=== PATIENT | male | born 1950 | race Caucasian/White ===

== ENCOUNTER 2016-07-10 17:40 | Inpatient (IN) | payer OTHER, MEDICARE ==
[~2016-07-10] VITALS: Ht 177.8 cm; Wt 93.0 kg
[~2016-07-10 17:40] MED LIST: ATEN-102 PO; BENA25TA8 PO; EPIP0.3I IM; HYZA100T2 PO; IBUP800 PO; MEDR4PAK3 PO; ZOCO80TA PO
[2016-07-10 17:42] VITALS: BP 119/58; PULSE 73; RESP 12; TEMP 98.3; O2SAT 99
[2016-07-10] MEDS ORDERED: ASPI-110 PO (18:36)
[2016-07-10] MEDS ORDERED: VITA100022 PO (18:36)
[2016-07-10] MEDS ORDERED: ATEN100T PO (18:36)
[2016-07-10] MEDS ORDERED: HYDR12.57 PO (18:36)
[2016-07-10] MEDS ORDERED: ZOCO40TA PO (18:36)
[2016-07-10] MEDS ORDERED: SYMB160A INH (18:36)
[2016-07-10] MEDS ORDERED: MULT1TAB84 PO (18:36)
[2016-07-10] MEDS ORDERED: FOLI400T PO (18:36)
[2016-07-10] MEDS ORDERED: LOSA100T PO (18:36)
[2016-07-10] MEDS ORDERED: SODIUM CHLOR 0.9% 1000 ML INJ 1,000 ML IV SCH (18:41)
[2016-07-10] MEDS ORDERED: MORPHINE SULFATE 4 MG/ML INJ IV PUSH ONE (18:45)
[2016-07-10] MEDS ORDERED: ONDANSETRON HCL 4 MG/2 ML VIAL IVP ONE (18:45)
[2016-07-10] MEDS ORDERED: SODIUM CHLORIDE 0.9% FLUSH 5 ML FLUSH IVF PRN (18:45)
[2016-07-10] MEDS ORDERED: metroNIDAZOLE 500 MG INJ 100 ML IV ONE (18:45)
[2016-07-10] MEDS ORDERED: CIPROFLOXACIN 400 MG PREMIX 200 ML IV ONE (18:45)
--- NOTE | 2016-07-10 18:50 | PD ---
HPI Chief Complaint: GI Complaint Time Seen by Provider: 18:40 Travel History International Travel<30 days: No Contact w/Intl Traveler<30days: No Traveled to known affect area: No History of Present Illness HPI The patient is a 66-year-old male who presents to the emergency department for an abscess on the colon. The patient notes a three-week history of left lower quadrant abdominal pain, was diagnosed with diverticulitis one week ago. The patient has been taking Cipro and Flagyl for 6 days, but has persistent left flank pain. The patient had a CT of his abdomen and pelvis performed yesterday at the [facility] which revealed a 10 cm intra-abdominal abscess. The patient was referred to the emergency department for colorectal surgical evaluation. The patient has been taking Cipro and Flagyl for 6 days, continues to have persistent left lower quadrant pain. He denies any current nausea or vomiting, does note decrease in bowel movement over the last 2 days. The patient denies any fever, chills, or sweats. The patient does have a history of hypertension and hyperlipidemia. He denies any previous abdominal surgeries. Symptoms are moderate, exacerbated by diverticulitis, and not alleviated with antibiotics. The patient's primary physician is the [place] [facility]. [facility] Past Medical History Narrative Medical Hypertension, hyperlipidemia, COPD Arthritis: Yes High Cholesterol: Yes COPD: Yes Hypertension: Yes Respiratory: Yes (COPD) Influenza Vaccination: Yes Past Surgical History Eye Surgery: Yes (BILATERAL CATARACTS SURGERY) Social History Alcohol Use: Yes (vodka 4-5 night) Tobacco Use: Yes (1 ppd) Substance Use: No Allergies-Medications (Allergen,Severity, Reaction): Coded Allergies: No Known Allergies (Unverified , 07/10/16) Reported Meds & Prescriptions Reported Meds & Active Scripts Active Reported Folic Acid 400 Mcg Tab 400 Mcg PO DAILY Multivitamin Adults (Multiple Vitamins W/ Minerals) 1 Tab 1 Tab PO DAILY Vitamin B-12 ER (Cyanocobalamin) 1,000 Mcg Tab 500 Mcg PO DAILY Aspirin 81 (Aspirin) 81 Mg Tabdr 81 Mg PO DAILY Losartan (Losartan Potassium) 100 Mg Tab 100 Mg PO DAILY Atenolol 100 Mg Tab 150 Mg PO DAILY Hydrochlorothiazide 12.5 Mg Cap 12.5 Mg PO DAILY Zocor (Simvastatin) 40 Mg Tab 40 Mg PO HS Symbicort Inh (Budesonide/Formoterol Fumarate) 160-4.5 Mcg/Act Aero 2 Puff INH Q12HR Review of Systems Except as stated in HPI: all other systems reviewed are Neg General / Constitutional: No: Fever, Chills Cardiovascular: No: Chest Pain or Discomfort Respiratory: No: Shortness of Breath Gastrointestinal: Positive: Abdominal Pain, Changes in Bowel Habits, No: Nausea, Vomiting, Diarrhea Genitourinary: No: Dysuria Musculoskeletal: No: Weakness Skin: No Rash Physical Exam Narrative GENERAL: Awake, alert, pleasant 66-year-old male who appears his stated age and is in no acute respiratory distress. SKIN: Warm and dry. HEAD: Atraumatic. Normocephalic. EYES: Pupils equal and round. No scleral icterus. No injection or drainage. ENT: No nasal bleeding or discharge. Mucous membranes pink and moist. NECK: Trachea midline. No JVD. CARDIOVASCULAR: Regular rate and rhythm. No murmur appreciated. RESPIRATORY: No accessory muscle use. Clear to auscultation. Breath sounds equal bilaterally. GASTROINTESTINAL: Abdomen soft, tender palpation left lower quadrant, no rigidity or rebound tenderness noted. MUSCULOSKELETAL: No obvious deformities. No clubbing. No cyanosis. No edema. NEUROLOGICAL: Awake and alert. No obvious cranial nerve deficits. Motor grossly within normal limits. Normal speech. PSYCHIATRIC: Appropriate mood and affect; insight and judgment normal. Data Data Last Documented VS Vital Signs Date Time Temp Pulse Resp B/P Pulse Ox O2 Delivery O2 Flow Rate FiO2 07/10/16 19:12 74 14 117/59 98 Room Air 07/10/16 17:42 98.3 Orders Complete Blood Count With Diff (07/10/16 18:41) Comprehensive Metabolic Panel (07/10/16 18:41) Lactic Acid (07/10/16 18:41) Iv Access Insert/Monitor (07/10/16 18:41) Ecg Monitoring (07/10/16 18:41) Oximetry (07/10/16 18:41) Morphine Inj (Morphine Inj) (07/10/16 18:45) Ondansetron Inj (Zofran Inj) (07/10/16 18:45) Ciprofloxacin 400 Mg Premix (Cipro 400 M (07/10/16 18:45) Metronidazole 500 Mg Inj (Flagyl 500 Mg (07/10/16 18:45) Sodium Chlor 0.9% 1000 Ml Inj (Ns 1000 M (07/10/16 18:41) Sodium Chloride 0.9% Flush (Ns Flush) (07/10/16 18:45) Electrocardiogram (07/10/16 18:41) Blood Culture (07/10/16 18:41) Albuterol-Ipratropium Neb (Duoneb Neb) (07/10/16 19:45) Admit To Inpatient (07/10/16 ) Vital Signs (Adult) Q4H (07/10/16 19:41) Activity Oob Ad Raisa (07/10/16 19:41) Intake + Output PAVAN.QSHIFT (07/10/16 19:41) Diet Npo (07/11/16 Breakfast) Sodium Chlor 0.9% 1000 Ml Inj (Ns 1000 M (07/10/16 19:41) Sodium Chloride 0.9% Flush (Ns Flush) (07/10/16 19:45) Sodium Chloride 0.9% Flush (Ns Flush) (07/10/16 21:00) Ondansetron Inj (Zofran Inj) (07/10/16 19:45) Bisacodyl Supp (Dulcolax Supp) (07/10/16 19:45) Comprehensive Metabolic Panel (07/11/16 06:00) Complete Blood Count With Diff (07/11/16 06:00) Prothrombin Time / Inr (Pt) (07/11/16 06:00) Scd Bilateral/Knee High PAVAN.BID (07/10/16 19:41) [place] Bilateral/Knee High PAVAN.QSHIFT (07/10/16 19:41) Acetaminophen (Tylenol) (07/10/16 19:45) Acetamin-Hydrocod 325-5 Mg ([place] 5-325 (07/10/16 19:45) Hydromorphone Pf Inj (Dilaudid Pf Inj) (07/10/16 19:45) Inpatient Certification (07/10/16 ) Ciprofloxacin 400 Mg Premix (Cipro 400 M (07/11/16 06:00) Metronidazole 500 Mg Inj (Flagyl 500 Mg (07/11/16 02:00) Budeson-Formot 160-4.5 Mg Inh (Symbicort (07/10/16 21:00) Cyanocobalamin (Vitamin B12) (07/11/16 09:00) Folic Acid (Folate) (07/11/16 09:00) Losartan (Cozaar) (07/11/16 09:00) Multivitamins-Minerals Therap (Theragran (07/11/16 09:00) Pravastatin (Pravachol) (07/10/16 21:00) Consult Colorectal Surgery (07/10/16 ) Invasive Rad Dept Consult (07/10/16 ) Admit Order (Ed Use Only) (07/10/16 19:47) Atenolol (Tenormin) (07/11/16 09:00) Labs Laboratory Tests Test 07/10/16 18:40 White Blood Count 8.0 TH/MM3 Red Blood Count 3.52 MIL/MM3 Hemoglobin 10.9 GM/DL Hematocrit 32.4 % Mean Corpuscular Volume 92.1 FL Mean Corpuscular Hemoglobin 30.9 PG Mean Corpuscular Hemoglobin 33.6 % Concent Red Cell Distribution Width 16.0 % Platelet Count 287 TH/MM3 Mean Platelet Volume 7.3 FL Neutrophils (%) (Auto) 68.9 % Lymphocytes (%) (Auto) 14.7 % Monocytes (%) (Auto) 13.3 % Eosinophils (%) (Auto) 2.6 % Basophils (%) (Auto) 0.5 % Neutrophils # (Auto) 5.5 TH/MM3 Lymphocytes # (Auto) 1.2 TH/MM3 Monocytes # (Auto) 1.1 TH/MM3 Eosinophils # (Auto) 0.2 TH/MM3 Basophils # (Auto) 0.0 TH/MM3 CBC Comment DIFF FINAL Differential Comment Sodium Level 136 MEQ/L Potassium Level 4.4 MEQ/L Chloride Level 103 MEQ/L Carbon Dioxide Level 23.5 MEQ/L Anion Gap 10 MEQ/L Blood Urea Nitrogen 21 MG/DL Creatinine 1.16 MG/DL Estimat Glomerular Filtration 63 ML/MIN Rate Random Glucose 118 MG/DL Lactic Acid Level 1.2 mmol/L Calcium Level 8.7 MG/DL Total Bilirubin 0.7 MG/DL Aspartate Amino Transf 16 U/L (AST/SGOT) Alanine Aminotransferase 16 U/L (ALT/SGPT) Alkaline Phosphatase 64 U/L Total Protein 7.8 GM/DL Albumin 2.5 GM/DL MDM Medical Decision Making Medical Screen Exam Complete: Yes Emergency Medical Condition: Yes Medical Record Reviewed: Yes Interpretation(s) Outpatient CT the abdomen and pelvis revealed at least subacute distal descending colonic diverticulitis, complicated by abscess formation with intraluminal air debris into the left ileal psoas muscle. The abscess maximally measures 10.7 cm. No free-flowing peritoneal gas or fluid. EKG reveals normal sinus rhythm with a rate of 75. Unifocal PVC noted. Nonspecific T-wave changes. Laboratory Tests Test 07/10/16 18:40 White Blood Count 8.0 TH/MM3 Red Blood Count 3.52 MIL/MM3 Hemoglobin 10.9 GM/DL Hematocrit 32.4 % Mean Corpuscular Volume 92.1 FL Mean Corpuscular Hemoglobin 30.9 PG Mean Corpuscular Hemoglobin 33.6 % Concent Red Cell Distribution Width 16.0 % Platelet Count 287 TH/MM3 Mean Platelet Volume 7.3 FL Neutrophils (%) (Auto) 68.9 % Lymphocytes (%) (Auto) 14.7 % Monocytes (%) (Auto) 13.3 % Eosinophils (%) (Auto) 2.6 % Basophils (%) (Auto) 0.5 % Neutrophils # (Auto) 5.5 TH/MM3 Lymphocytes # (Auto) 1.2 TH/MM3 Monocytes # (Auto) 1.1 TH/MM3 Eosinophils # (Auto) 0.2 TH/MM3 Basophils # (Auto) 0.0 TH/MM3 CBC Comment DIFF FINAL Differential Comment Sodium Level 136 MEQ/L Potassium Level 4.4 MEQ/L Chloride Level 103 MEQ/L Carbon Dioxide Level 23.5 MEQ/L Anion Gap 10 MEQ/L Blood Urea Nitrogen 21 MG/DL Creatinine 1.16 MG/DL Estimat Glomerular Filtration 63 ML/MIN Rate Random Glucose 118 MG/DL Lactic Acid Level 1.2 mmol/L Calcium Level 8.7 MG/DL Total Bilirubin 0.7 MG/DL Aspartate Amino Transf 16 U/L (AST/SGOT) Alanine Aminotransferase 16 U/L (ALT/SGPT) Alkaline Phosphatase 64 U/L Total Protein 7.8 GM/DL Albumin 2.5 GM/DL Differential Diagnosis Differential diagnosis includes diverticulitis, colitis, intra-abdominal abscess , pyelonephritis, perforated colon. Narrative Course IV was established, labs are drawn and sent, and the patient was placed on cardiac telemetry monitoring and continuous pulse oximetry monitoring. EKG was ordered and interpreted. I do discussion with radiology who recommends evaluation by colorectal surgery, if deemed acceptable by colorectal surgery for interventional radiology consultation, interventional radiology may be able to drain the abscess, but would need to review the CT first. Therefore, a call was placed to Dr. Hackett, the on-call colorectal surgeon. The patient will be kept nothing by mouth. The patient was administered Cipro IV, Flagyl IV, morphine, Zofran, and IV fluids. The on-call medical service was paged for admission. The CD of the CT was taken radiology to see if they can load the disc to be evaluated by Dr. Hackett. The patient was afebrile, vitals were unremarkable remarkable, the patient is stable for drainage tomorrow. I did discuss the CT findings with Dr. Hackett, he states most likely the patient can have IR intervention, however, he will have to evaluate the CT first, radiology was asked to load the disc if possible. Radiology states they are unable to load the disc to the system, it will have to be evaluated at a computer desk top. Diagnosis Primary Impression: Diverticulitis of intestine with abscess Qualified Code: K57.20 - Diverticulitis of large intestine with abscess without bleeding Admitting Information Admitting Physician Requests: Admit Condition: Stable Parveen Sewell MD Jul 10, 2016 18:49
[2016-07-10 19:12] VITALS: BP 117/59; PULSE 74; RESP 14; O2SAT 98
[2016-07-10 19:27] LABS: AUTOMATED NEUTROPHIL # 5.5 TH/MM3 (1.8-7.7); BASOPHIL % 0.5 % (0.0-2.0); EOSINOPHIL # 0.2 TH/MM3 (0-0.4); EOSINOPHIL % 2.6 % (0.0-4.0); HEMATOCRIT 32.4 % (39.0-51.0); HEMO FLAGS DIFF FINAL; LYMPH % 14.7 % (9.0-44.0); LYMPHOCYTE # 1.2 TH/MM3 (1.0-4.8); MEAN CELL VOLUME 92.1 FL (80.0-100.0); MEAN CORPUSCULAR HEMOGLOBIN 30.9 PG (27.0-34.0); MEAN CORPUSCULAR HGB CONC 33.6 % (32.0-36.0); MONO % 13.3 % (0.0-8.0); NEUT % 68.9 % (16.0-70.0); PLATELET COUNT 287 TH/MM3 (150-450); RED BLOOD COUNT 3.52 MIL/MM3 (4.50-5.90)
[2016-07-10] MEDS ORDERED: RESP: ALBUTEROL 2.5 MG/IPRATROPIUM 0.5 MG NEB (PRN) NEB (19:45)
[2016-07-10] MEDS ORDERED: ACETAMINOPHEN 325 MG TAB PO PRN (19:45)
[2016-07-10] MEDS ORDERED: SODIUM CHLORIDE 0.9% FLUSH 5 ML FLUSH FLUSH PRN (19:45)
[2016-07-10] MEDS ORDERED: HYDROmorphone HCL PF 1 MG/ML VIAL IV PRN (19:45)
[2016-07-10] MEDS ORDERED: ONDANSETRON HCL 4 MG/2 ML VIAL IVP PRN (19:45)
[2016-07-10] MEDS ORDERED: BISACODYL 10 MG SUPP PR PRN (19:45)
[2016-07-10 19:49] LABS: ALKALINE PHOSPHATASE 64 U/L (45-117); ALT (GPT) 16 U/L (12-78); ANION GAP 10 MEQ/L (5-15); AST (GOT) 16 U/L (15-37); BICARBONATE 23.5 MEQ/L (21.0-32.0); BLOOD UREA NITROGEN 21 MG/DL (7-18); CHLORIDE 103 MEQ/L (98-107); GLOMERULAR FILTRATION RATE 63 ML/MIN (>89); POTASSIUM 4.4 MEQ/L (3.5-5.1); SODIUM (NA) 136 MEQ/L (136-145); TOTAL BILIRUBIN ADULT 0.7 MG/DL (0.2-1.0)
--- NOTE | 2016-07-10 19:50 | HHI.HP ---
[facility] Mable Tejada MD Admission Diagnosis diverticulitis with intra-abdominal abscess failed outpatient therap Diagnoses: (1) Diverticulitis of intestine with abscess Diagnosis: Principal (2) Intra-abdominal abscess Diagnosis: Principal (3) Abdominal pain Diagnosis: Principal (4) Failure of outpatient treatment Diagnosis: Principal (5) HTN (hypertension) Diagnosis: Principal (6) COPD (chronic obstructive pulmonary disease) Diagnosis: Principal (7) Tobacco abuse Diagnosis: Principal Travel History International Travel<30 Days: No Contact w/Intl Traveler <30 Da: No Traveled to Known Affected Are: No History of Present Illness This is a 66-year-old male with a PMH of HTN, Hyperlipidemia and COPD who was sent to the ER from the [place] secondary to findings on CT Abd/Pelvis showing 10cm intra-abdominal abscess. Per patient, he's had complaints of LLQ and left flank pain for approx 1wk. Was diagnosed w/ Diverticulitis 6 days ago and started on Cipro/Flagyl, however reports persistent pain. Had outpatient CT Abd /Pelvis done today w/ above findings and was referred to the ER. Denies fever, chills, nausea, vomiting or diarrhea. CT disk at bedside, however Radiology unable to upload images. ER physician spoke w/ both Dr. Hackett and Dr. Degroot from IR, will review images in am and decide on IR drainage vs surgical intervention. On arrival, BP 119/58, HR 73, O2 sat 99% on RA, Afebrile. WBC 8.0. Chemistry essentially unremarkable except for GFR 63. S/p Blood Cultures , Cipro/Flagyl in ER. Pt comfortable but has intermittent episodes of pain, reluctant to take pain medication. Review of Systems Other ROS: 14 point review of systems otherwise negative. Past Family Social History Past Medical History PMH: HTN, Hyperlipidemia and COPD Past Surgical History PAST SURGICAL HISTORY: Bilateral Cataract Surgery Allergies: Coded Allergies: No Known Allergies (Unverified , 07/10/16) Family History PAST FAMILY HISTORY: Reviewed. No h/o DM or CAD Social History PAST SOCIAL HISTORY: 4-5 Vodka Drinks/night. Smokes 1ppd. Negative for drugs. Physical Exam Vital Signs Vital Signs Date Time Temp Pulse Resp B/P Pulse Ox O2 Delivery O2 Flow Rate FiO2 07/10/16 19:12 74 14 117/59 98 Room Air 07/10/16 17:42 98.3 73 12 119/58 99 Room Air Physical Exam PE: GENERAL: Pleasant middle-aged white male in no acute distress. HEENT: PERRLA, EOMI. No scleral icterus or conjunctival pallor. No lid lag or facial droop. CARDIOVASCULAR: Regular rate and rhythm. No obvious murmurs to auscultation. No chest tenderness to palpation. RESPIRATORY: No obvious rhonchi or wheezing. Clear to auscultation. Breath sounds equal bilaterally. GASTROINTESTINAL: Abdomen soft, LLQ tenderness to palpation, nondistended. BS normal. MUSCULOSKELETAL: Extremities without clubbing, cyanosis, or edema. No obvious deformities. NEUROLOGICAL: Awake, alert and oriented x4. No focal neurologic deficits. Moving both upper and lower extremities spontaneously. Laboratory Laboratory Tests Test 07/10/16 18:40 White Blood Count 8.0 Red Blood Count 3.52 Hemoglobin 10.9 Hematocrit 32.4 Mean Corpuscular Volume 92.1 Mean Corpuscular Hemoglobin 30.9 Mean Corpuscular Hemoglobin 33.6 Concent Red Cell Distribution Width 16.0 Platelet Count 287 Mean Platelet Volume 7.3 Neutrophils (%) (Auto) 68.9 Lymphocytes (%) (Auto) 14.7 Monocytes (%) (Auto) 13.3 Eosinophils (%) (Auto) 2.6 Basophils (%) (Auto) 0.5 Neutrophils # (Auto) 5.5 Lymphocytes # (Auto) 1.2 Monocytes # (Auto) 1.1 Eosinophils # (Auto) 0.2 Basophils # (Auto) 0.0 CBC Comment DIFF FINAL Differential Comment Sodium Level 136 Potassium Level 4.4 Chloride Level 103 Carbon Dioxide Level 23.5 Anion Gap 10 Blood Urea Nitrogen 21 Creatinine 1.16 Estimat Glomerular Filtration 63 Rate Random Glucose 118 Lactic Acid Level 1.2 Calcium Level 8.7 Total Bilirubin 0.7 Aspartate Amino Transf 16 (AST/SGOT) Alanine Aminotransferase 16 (ALT/SGPT) Alkaline Phosphatase 64 Total Protein 7.8 Albumin 2.5 Date/Time Procedure Status Source Growth 07/10/16 18:45 Aerobic Blood Culture Received Blood Peripheral Pending 07/10/16 18:45 Anaerobic Blood Culture Received Blood Peripheral Pending Result Diagram: 07/10/16 1840 07/10/16 184 Assessment and Plan Problem List: (1) Diverticulitis of intestine with abscess ICD Code: K57.80 Status: Acute (2) Intra-abdominal abscess ICD Code: K65.1 Status: Acute (3) Abdominal pain ICD Code: R10.9 Status: Acute (4) Failure of outpatient treatment ICD Code: Z78.9 Status: Acute (5) HTN (hypertension) ICD Code: I10 Status: Acute (6) COPD (chronic obstructive pulmonary disease) ICD Code: J44.9 Status: Acute (7) Tobacco abuse ICD Code: Z72.0 Status: Acute Assessment and Plan A/P: 1. Diverticulitis: w/ Abscess. Failed outpatient therapy w/ Cipro/Flagyl x6 days. Afebrile, no leukocytosis. S/p Blood Cultures, IV Cipro/Flagyl in ER, will follow-up cultures, continue IV Abx. IVF. 2. Intra-Abdominal Abscess: Referred to ER by [place] for outpatient CT Abd/Pelvis w/ 10cm intra-abdominal abscess. ER physician spoke w/ Dr. Hackett and Dr. Degroot from IR. Unable to upload images on CD w/ patient. Will eval in am for IR drainage vs surgical drainage. Keep NPO after midnight, IVF, continue IV Abx. 3. Abdominal Pain: Secondary to above. Pt reluctant to take pain medication. Will continue w/ [place]/Morphine as needed. 4. HTN: Controlled. Resume home medication. 5. COPD: Chronic Respiratory Failure. Controlled. Resume home MDI, DuoNeb prn. 6. Tobacco Abuse: Pt counselled. Ativan/NicoDerm prn if needed. 7. DVT Prophylaxis: SCD/Teds. 8. Social work for d/c planning as needed. 9. Case discussed at length w/ ER physician. Physician Certification 2 Midnight Certification Type: Admission for Inpatient Services Order for Inpatient Services The services are ordered in accordance with Medicare regulations or non- Medicare payer requirements, as applicable. In the case of services not specified as inpatient-only, they are appropriately provided as inpatient services in accordance with the 2-midnight benchmark. Estimated LOS (days): 2 days is the estimated time the patient will need to remain in the hospital, assuming treatment plan goals are met and no additional complications. Post-Hospital Plan: Not yet determined Problem Qualifiers (1) Diverticulitis of intestine with abscess: Qualified Code: K57.20 - Diverticulitis of large intestine with abscess without bleeding (2) Abdominal pain: Qualified Code: R10.32 - Left lower quadrant pain Iris Deluna MD Jul 10, 2016 19:50
[2016-07-10] MEDS ORDERED: LORazepam 2 MG/ML VIAL IV PUSH PRN (20:00)
[2016-07-10] MEDS: SODIUM CHLOR 0.9% 1000 ML INJ 1,000 ML IV SCH (20:07)
[2016-07-10] MEDS: BUDESONIDE-FORMOTEROL 160/4.5 MCG INHALER INH SCH (21:00)
[2016-07-10] MEDS: SODIUM CHLORIDE 0.9% FLUSH 5 ML FLUSH FLUSH SCH (21:00)
[2016-07-10] MEDS: PRAVASTATIN SOD 80 MG TAB PO SCH (21:00)
[2016-07-10 21:30] VITALS: BP 115/56; PULSE 74; RESP 14; O2SAT 97
[2016-07-10 22:15] VITALS: BP 144/71; PULSE 89; RESP 18; TEMP 97.2; O2SAT 95
[2016-07-11] VITALS (11 sets, daily range): BP systolic 95–166; BP diastolic 47–84; PULSE 61–90; RESP 16–20; TEMP 97.6–99; O2SAT 93–100
[2016-07-11] MEDS: metroNIDAZOLE 500 MG INJ 100 ML IV SCH ×3 (01:44→17:24)
[2016-07-11] MEDS: SODIUM CHLOR 0.9% 1000 ML INJ 1,000 ML IV SCH (05:41)
[2016-07-11] MEDS: CIPROFLOXACIN 400 MG PREMIX 200 ML IV SCH ×2 (05:46→18:37)
[2016-07-11 07:01] LABS: AUTOMATED NEUTROPHIL # 3.6 TH/MM3 (1.8-7.7); BASOPHIL % 0.8 % (0.0-2.0); EOSINOPHIL # 0.2 TH/MM3 (0-0.4); EOSINOPHIL % 2.9 % (0.0-4.0); HEMATOCRIT 29.4 % (39.0-51.0); HEMO FLAGS DIFF FINAL; LYMPH % 21.9 % (9.0-44.0); LYMPHOCYTE # 1.3 TH/MM3 (1.0-4.8); MEAN CELL VOLUME 89.8 FL (80.0-100.0); MEAN CORPUSCULAR HEMOGLOBIN 30.6 PG (27.0-34.0); MEAN CORPUSCULAR HGB CONC 34.1 % (32.0-36.0); MONO % 15.2 % (0.0-8.0); NEUT % 59.2 % (16.0-70.0); PLATELET COUNT 252 TH/MM3 (150-450); RED BLOOD COUNT 3.28 MIL/MM3 (4.50-5.90)
[2016-07-11 07:06] LABS: INTERNATIONAL NORMALIZED RATIO 1.2 RATIO; PROTHROMBIN TIME - PATIENT 13.4 SEC (9.8-11.6)
[2016-07-11 07:23] LABS: ALKALINE PHOSPHATASE 55 U/L (45-117); ALT (GPT) 11 U/L (12-78); ANION GAP 14 MEQ/L (5-15); AST (GOT) 10 U/L (15-37); BICARBONATE 20.7 MEQ/L (21.0-32.0); BLOOD UREA NITROGEN 15 MG/DL (7-18); CHLORIDE 103 MEQ/L (98-107); GLOMERULAR FILTRATION RATE 91 ML/MIN (>89); POTASSIUM 3.8 MEQ/L (3.5-5.1); SODIUM (NA) 138 MEQ/L (136-145); TOTAL BILIRUBIN ADULT 0.4 MG/DL (0.2-1.0)
[2016-07-11] MEDS: SODIUM CHLORIDE 0.9% FLUSH 5 ML FLUSH FLUSH SCH ×2 (08:38→19:45)
[2016-07-11] MEDS: MULTIVITAMINS/MINERALS THERAPEUTIC TAB PO SCH (08:38)
[2016-07-11] MEDS: CYANOCOBALAMIN 1,000 MCG TAB PO SCH (08:39)
[2016-07-11] MEDS: BUDESONIDE-FORMOTEROL 160/4.5 MCG INHALER INH SCH ×2 (08:44→19:44)
[2016-07-11] MEDS: ATENOLOL 50 MG TAB PO SCH (08:45)
[2016-07-11] MEDS: FOLIC ACID 1 MG TAB PO SCH (08:45)
[2016-07-11] MEDS: LOSARTAN 50 MG TAB PO SCH (08:46)
[2016-07-11 10:45] LABS: BLOOD, URINE NEG (NEG); COMMENT (UR) CULT NOT INDICATED; CULTURE IF INDICATED CULT NOT INDICATED; GLUCOSE,URINE NEG (NEG); KETONE, URINE NEG (NEG); NITRITE,URINE NEG (NEG); PH, URINE 6.5 (5.0-8.5); SQUAMOUS EPITHELIAL CELL URINE <1 /hpf (0-5); URINE COLOR YELLOW (YELLW/STRAW)
[2016-07-11] MEDS ORDERED: LIDOCAINE 1%/EPINEPHrine 1:100,000 SOLN 20 ML VIAL ONE (13:34)
[2016-07-11] MEDS ORDERED: fentaNYL CITRATE 250 MCG/5 ML AMP ONE (13:46)
[2016-07-11] MEDS ORDERED: MIDAZOLAM HCL 5 MG/5 ML VIAL ONE (13:47)
--- NOTE | 2016-07-11 14:40 | HHI.PR ---
Subjective Remarks Patient seen this morning around 11 AM. Says he is feeling about the same as last night. Dull cramping left lower quadrant pain continues. Denies nausea or vomiting. Denies chest pain or shortness breath. Objective Vital Signs Date Time Temp Pulse Resp B/P Pulse Ox O2 Delivery O2 Flow Rate FiO2 07/11/16 12:00 98.0 70 16 103/47 96 07/11/16 08:00 98.7 73 16 118/73 96 07/11/16 04:00 99.0 90 18 107/58 94 07/11/16 00:00 97.8 87 18 100/59 96 07/10/16 22:15 97.2 89 18 144/71 95 07/10/16 21:30 74 14 115/56 97 Room Air 07/10/16 19:12 74 14 117/59 98 Room Air 07/10/16 17:42 98.3 73 12 119/58 99 Room Air I/O 07/10/16 07/10/16 07/10/16 07/11/16 07/11/16 07/11/16 07:00 15:00 23:00 07:00 15:00 23:00 Intake Total 1184 ml 0 ml Balance 1184 ml 0 ml Intake Oral 0 ml 0 ml IV Total 1184 ml # Voids 1 # Bowel Movements 0 Result Diagram: 07/11/16 0509 07/11/16 0509 Objective Remarks GENERAL: sitting up in bed. Appears comfortable. Alert and oriented 3. SKIN: Warm and dry. HEAD: Normocephalic. EYES: No scleral icterus. No injection or drainage. NECK: Supple, trachea midline. No JVD. CARDIOVASCULAR: Regular rate and rhythm without murmurs, gallops, or rubs. RESPIRATORY: Breath sounds equal bilaterally. No accessory muscle use. GASTROINTESTINAL: Abdomen soft. Tenderness to moderate palpation left lower quadrant. No rebound or guarding. Positive bowel sounds. MUSCULOSKELETAL: No cyanosis, or edema. BACK: Nontender without obvious deformity. No CVA tenderness. A/P Assessment and Plan A/P: // Diverticulitis: w/ Abscess. Failed outpatient therapy w/ Cipro/Flagyl x6 days. Afebrile, no leukocytosis. S/p Blood Cultures, IV Cipro/Flagyl in ER, will follow-up cultures, continue IV Abx. IVF. -07/11. Abdominal pain stable. Vital stable. Continue ciprofloxacin and Flagyl. //Intra-Abdominal Abscess: Referred to ER by [place] for outpatient CT Abd/Pelvis w / 10cm intra-abdominal abscess. ER physician spoke w/ Dr. Hackett and Dr. Degroot from . Unable to upload images on CD w/ patient. -Nothing by mouth. For procedure. Continue IV fluids. -Colorectal surgery following. CT-guided drainage of intra-abdominal abscess planned for today. Appreciate assistance. //Abdominal Pain: Secondary to above. -Pt reluctant to take pain medication. -07/11. Abdominal pain stable. Continue [place]/morphine as necessary. // HTN: Controlled. Pressure continues acceptable. Continue home medication. // COPD: Chronic Respiratory Failure. Controlled. Breathing typically. Continue home MDI, [place] prn. // Tobacco Abuse: Pt counselled. -Offered NicoDerm if needed. // DVT Prophylaxis: SCD/Teds. Hold coagulation pending procedure. Discharge Planning Pending CT-guided drainage. -expect discharge home within the next few days pending clearance by colorectal surgery. Terry Delvalle MD Jul 11, 2016 14:40
--- NOTE | 2016-07-11 15:42 | RADRPT ---
EXAM DATE/TIME: 07/11/2016 14:14 [place] COMPARISON: No previous studies available for comparison. INDICATIONS : Pelvis abscess. SEDATION TIME: 20 minutes MEDICATION(S): 1.) 2 mg midazolam (Versed) IV 2.) 100 mcg fentanyl (Sublimaze) IV DEVICE(S): 1.) 12 gauge [place] MEDICAL HISTORY : Hypertension. Chronic obstructive pulmonary disease. SURGICAL HISTORY : None. ENCOUNTER: Initial ACUITY: 1 day PAIN SCORE: 0/10 LOCATION: Left abdomen. PROCEDURE: 1.) Conscious sedation with continuous EKG and oximetry monitoring. 2.) EKG and oximetry remained stable throughout the procedure. PROCEDURE : 1. CT guided drainage of the psoas abscess 2. Conscious sedation with continuous EKG and oximetry monitoring. The risks, benefits and alternatives to the procedure were explained and verbal and written consent w as obtained. The site was prepped in sterile fashion. Full sterile technique was used, including ca p, mask, sterile gloves and gown and a large sterile sheet. Hand hygiene and 2% chlorhexidine and/or betadine/alcohol prep was utilized per protocol for cutaneous antisepsis. The skin and subcutaneous tissues were infiltrated with local anesthetic solution. Using CT guidance the prescribed site was localized. Drainage was performed using the prescribed cat heter The patient tolerated the procedure well and there were no complications. Conscious sedation was per formed with the prescribed dosages and duration as above. The patient tolerated the procedure well an d there were no complications. EKG and oximetry remained stable throughout the procedure. The patient was sent to post anesthesia recovery in stable condition. CONCLUSION: Uncomplicated CT guided drainage. Reece Elkins MD on July 11, 2016 at 15:40 Board Certified Radiologist. This report was verified electronically.
--- NOTE | 2016-07-11 16:02 | EKG ---
Date Performed: 07/10/2016 Time Performed: 19:18:51 PTAGE: 66 years EKG: Sinus rhythm WITH OCCASIONAL VENTRICULAR PREMATURE COMPLEXES NONSPECIFIC T-WAVE ABNORMALITY When compared to prev ious tracing, no significant change. BORDERLINE ECG PREVIOUS TRACING : 04/20/2013 09.39 DOCTOR: Gianni Love Interpretating Date/Time 07/11/2016 16:01:20
[2016-07-11] MEDS: PRAVASTATIN SOD 80 MG TAB PO SCH (19:44)
[2016-07-11] MEDS: ZOLPIDEM TARTRATE 5 MG TAB PO PRN (21:57)
--- NOTE | 2016-07-11 22:08 | HHI.PR ---
Subjective Remarks C/R Surg afebrile, VSS UO good drained placed, mod output Objective - Vital Signs Date Time Temp Pulse Resp B/P Pulse Ox O2 Delivery O2 Flow Rate FiO2 07/11/16 20:00 97.6 83 18 95/50 100 07/10/16 21:30 Room Air Result Diagram: 07/11/16 0509 07/11/16 0509 Other Results PE alert Abd - soft, min tender, min tympany no mass A/P Assessment and Plan Imp: Diverticulitis with lg abscess - drained, on Ab's cont liq PO watch drainage catheter plan elective resection Bobo Hackett MD Jul 11, 2016 22:08
[2016-07-12] VITALS (7 sets, daily range): BP systolic 81–123; BP diastolic 53–70; PULSE 68–76; RESP 16–20; TEMP 96.5–98.2; O2SAT 96–99
[2016-07-12] MEDS: metroNIDAZOLE 500 MG INJ 100 ML IV SCH ×3 (01:14→20:00)
[2016-07-12] MEDS: SODIUM CHLOR 0.9% 1000 ML INJ 1,000 ML IV SCH (04:11)
[2016-07-12] MEDS: CIPROFLOXACIN 400 MG PREMIX 200 ML IV SCH ×2 (05:16→17:56)
[2016-07-12 07:09] LABS: AUTOMATED NEUTROPHIL # 2.9 TH/MM3 (1.8-7.7); BASOPHIL % 0.7 % (0.0-2.0); EOSINOPHIL # 0.2 TH/MM3 (0-0.4); HEMATOCRIT 28.9 % (39.0-51.0); HEMO FLAGS DIFF FINAL; LYMPH % 28.9 % (9.0-44.0); LYMPHOCYTE # 1.6 TH/MM3 (1.0-4.8); MEAN CELL VOLUME 89.8 FL (80.0-100.0); MEAN CORPUSCULAR HEMOGLOBIN 30.2 PG (27.0-34.0); MEAN CORPUSCULAR HGB CONC 33.7 % (32.0-36.0); MONO % 14.6 % (0.0-8.0); NEUT % 52.8 % (16.0-70.0); PLATELET COUNT 232 TH/MM3 (150-450); RED BLOOD COUNT 3.22 MIL/MM3 (4.50-5.90); RED CELL DISTRIBUTION WIDTH 15.7 % (11.6-17.2); WHITE BLOOD COUNT 5.5 TH/MM3 (4.0-11.0)
[2016-07-12 07:22] LABS: BICARBONATE 20.4 MEQ/L (21.0-32.0); POTASSIUM 3.4 MEQ/L (3.5-5.1)
[2016-07-12] MEDS: SODIUM CHLORIDE 0.9% FLUSH 5 ML FLUSH FLUSH SCH ×2 (09:00→20:00)
[2016-07-12] MEDS: LOSARTAN 50 MG TAB PO SCH (09:24)
[2016-07-12] MEDS: MULTIVITAMINS/MINERALS THERAPEUTIC TAB PO SCH (09:24)
[2016-07-12] MEDS: CYANOCOBALAMIN 1,000 MCG TAB PO SCH (09:24)
[2016-07-12] MEDS: BUDESONIDE-FORMOTEROL 160/4.5 MCG INHALER INH SCH ×2 (09:25→20:00)
[2016-07-12] MEDS: FOLIC ACID 1 MG TAB PO SCH (09:25)
[2016-07-12] MEDS: ATENOLOL 50 MG TAB PO SCH (09:26)
[2016-07-12] MEDS ORDERED: POTASSIUM CHLORIDE 10 MEQ CONTROLLED RELEASE TAB PO ONE (09:45)
[2016-07-12] MEDS: PRAVASTATIN SOD 80 MG TAB PO SCH (20:00)
[2016-07-12] MEDS: D5-1/2 NS + KCL 20 MEQ INJ 1,000 ML IV SCH (20:01)
--- NOTE | 2016-07-12 22:16 | HHI.PR ---
Subjective Remarks Patient seen this morning [id number]:30 AM. Says that abdominal pain is much better. Denies any nausea or vomiting. no chest pain or shortness of breath. Walking around room without difficulty. Objective Vital Signs Date Time Temp Pulse Resp B/P Pulse Ox O2 Delivery O2 Flow Rate FiO2 07/12/16 20:00 97.8 69 16 123/70 96 07/12/16 16:00 96.5 73 18 96/57 99 07/12/16 12:40 70 109/65 07/12/16 12:00 68 20 81/53 96 07/12/16 08:00 98.2 69 18 114/67 99 Manual Cuff/Auscultation 07/12/16 04:00 97.9 76 18 114/69 96 07/12/16 00:00 97.9 74 18 96/55 97 I/O 07/11/16 07/11/16 07/11/16 07/12/16 07/12/16 07/12/16 07:00 15:00 23:00 07:00 15:00 23:00 Intake Total 1184 ml 0 ml 720 ml 1541 ml 1200 ml 1106 ml Output Total 265 ml 130 ml 75 ml Balance 1184 ml 0 ml 455 ml 1411 ml 1125 ml 1106 ml Intake Oral 0 ml 0 ml 720 ml 480 ml 1200 ml IV Total 1184 ml 1061 ml 1106 ml Output Urine Total 120 ml Drainage Total 265 ml 10 ml 75 ml # Voids 1 3 2 # Bowel Movements 0 0 Result Diagram: 07/12/16 0605 07/12/16 0605 Imaging Last Impressions Abscess Drainage CT 07/11/16 0000 Signed Impressions: Service Date/Time: Monday, July 11, 2016 14:14 - CONCLUSION: Uncomplicated CT guided drainage. Reece Elkins MD Objective Remarks GENERAL: patient sitting up in bed. Appears comfortable. Alert and oriented 3. SKIN: Warm and dry. HEAD: Normocephalic. EYES: No scleral icterus. No injection or drainage. NECK: Supple, trachea midline. No JVD. CARDIOVASCULAR: Regular rate and rhythm without murmurs, gallops, or rubs. RESPIRATORY: Breath sounds equal bilaterally. No accessory muscle use. GASTROINTESTINAL: Abdomen soft. nontender. Left lower quadrant and with drain in place. Draining brown feculent fluid. MUSCULOSKELETAL: No cyanosis, or edema. BACK: Nontender without obvious deformity. No CVA tenderness. A/P Assessment and Plan A/P: // Diverticulitis: w/ Abscess. Failed outpatient therapy w/ Cipro/Flagyl x6 days. Afebrile, no leukocytosis. S/p Blood Cultures, IV Cipro/Flagyl in ER, will follow-up cultures, continue IV Abx. IVF. -07/11 left lower quadrant drain placement. Unfortunately cultures were not obtained -07/12. Left lower quadrant drain in place. Abdominal pain much improved. Continue Cipro and Flagyl. //Intra-Abdominal Abscess: Referred to ER by OR for outpatient CT Abd/Pelvis w / 10cm intra-abdominal abscess. ER physician spoke w/ Dr. Hackett and Dr. Degroot from IR. Unable to upload images on CD w/ patient. -Nothing by mouth. For procedure. Continue IV fluids. -07/11CT-guided drainage of intra-abdominal abscess, with drain placement. No cultures were obtained.. - Continue Cipro and Flagyl. Management as per colorectal surgery. Appreciate assistance. //Abdominal Pain: Secondary to above. -Pt reluctant to take pain medication. -07/12. patient says abdominal pain is much improved after drain placement. Continue under. // HTN: -07/12. Blood pressure slightly decreased. Suspect that patient may bemore compliant with his blood pressure medication here than at home. We'll hold his losartan. // COPD: Chronic Respiratory Failure. Controlled. Breathing comfortably. Continue home I, Emerson prn. // Tobacco Abuse: Pt counselled. -Offered NicoDerm if needed. hypokalemia. replaced.. Follow. FEN: diet per surgical service. D5 half-normal saline. // DVT Prophylaxis: SCD/Teds. patient is ambulatory.anticoagulation as per surgical service. Discharge Planning status post CT guided drainage with drain placement 07/11. He -expect discharge home within the next few days pending clearance by colorectal surgery. Terry Delvalle MD Jul 12, 2016 22:16
[2016-07-13] VITALS: BP 105/63; PULSE 71; RESP 18; TEMP 97.7; O2SAT 96
[2016-07-13] MEDS: metroNIDAZOLE 500 MG INJ 100 ML IV SCH ×3 (02:03→18:07)
[2016-07-13 04:00] VITALS: BP 106/72; PULSE 67; RESP 18; TEMP 97.8; O2SAT 96
[2016-07-13 05:52] LABS: AUTOMATED NEUTROPHIL # 4.3 TH/MM3 (1.8-7.7); BASOPHIL # 0.1 TH/MM3 (0-0.2); BASOPHIL % 0.7 % (0.0-2.0); EOSINOPHIL # 0.2 TH/MM3 (0-0.4); EOSINOPHIL % 2.9 % (0.0-4.0); HEMATOCRIT 29.6 % (39.0-51.0); HEMO FLAGS DIFF FINAL; LYMPHOCYTE # 1.6 TH/MM3 (1.0-4.8); MEAN CELL VOLUME 91.1 FL (80.0-100.0); MEAN CORPUSCULAR HEMOGLOBIN 30.5 PG (27.0-34.0); MEAN CORPUSCULAR HGB CONC 33.5 % (32.0-36.0); MONO % 13.2 % (0.0-8.0); NEUT % 61.2 % (16.0-70.0); PLATELET COUNT 236 TH/MM3 (150-450); RED BLOOD COUNT 3.25 MIL/MM3 (4.50-5.90); RED CELL DISTRIBUTION WIDTH 15.7 % (11.6-17.2); WHITE BLOOD COUNT 7.1 TH/MM3 (4.0-11.0)
[2016-07-13 06:33] LABS: BICARBONATE 18.4 MEQ/L (21.0-32.0); POTASSIUM 3.5 MEQ/L (3.5-5.1)
[2016-07-13] MEDS: CIPROFLOXACIN 400 MG PREMIX 200 ML IV SCH ×2 (06:37→16:50)
[2016-07-13] MEDS: D5-1/2 NS + KCL 20 MEQ INJ 1,000 ML IV SCH ×2 (06:50→20:28)
[2016-07-13] MEDS: MULTIVITAMINS/MINERALS THERAPEUTIC TAB PO SCH (07:39)
[2016-07-13] MEDS: FOLIC ACID 1 MG TAB PO SCH (07:39)
[2016-07-13] MEDS: CYANOCOBALAMIN 1,000 MCG TAB PO SCH (07:39)
[2016-07-13] MEDS: SODIUM CHLORIDE 0.9% FLUSH 5 ML FLUSH FLUSH SCH ×2 (07:40→20:28)
[2016-07-13] MEDS: BUDESONIDE-FORMOTEROL 160/4.5 MCG INHALER INH SCH ×2 (07:41→20:27)
[2016-07-13 08:00] VITALS: BP 108/60; PULSE 62; RESP 18; TEMP 98.6; O2SAT 97
[2016-07-13] MEDS: ATENOLOL 50 MG TAB PO SCH (09:00)
[2016-07-13 12:00] VITALS: BP 94/55; PULSE 64; RESP 16; TEMP 96.8; O2SAT 99
[2016-07-13 16:00] VITALS: BP 106/58; PULSE 88; RESP 18; TEMP 97.4; O2SAT 99
[2016-07-13 20:00] VITALS: BP 114/57; PULSE 74; RESP 16; TEMP 98.2; O2SAT 97
[2016-07-13] MEDS: PRAVASTATIN SOD 80 MG TAB PO SCH (20:27)
--- NOTE | 2016-07-13 21:25 | HHI.PR ---
Subjective Remarks patient seen today around 1 PM. He says he feels well. Denies any chest pain or shortness of breath. Denies any nausea or vomiting. Tolerating clear diet. Nursing reports that there is an air leak in drainage catheter, which has been taped over with porous tape overnight. Accordion bulb releases over about 3 minutes, with loss of suction. There is a 200 mL of feculent material in the bag since 8 AM. I removed porous tape, discovered that there is a crack on end of catheter where tubing connects. I wrapped connection tightly with strips of tegaderm. This resolved air leak, now according bulb stays compressed. discussed with nursing. there is no evidence that catheter is blocked. Discussed with nursing that it is okay to hold off on flushes until IR can fix this in the morning; alternatively, nursing can flush the catheter if they can afterwards re-wrap connection with Tegaderm in a similar fashion. Objective Vital Signs Date Time Temp Pulse Resp B/P Pulse Ox O2 Delivery O2 Flow Rate FiO2 07/13/16 20:00 98.2 74 16 114/57 97 07/13/16 16:00 97.4 88 18 106/58 99 07/13/16 12:00 96.8 64 16 94/55 99 07/13/16 08:00 98.6 62 18 108/60 97 07/13/16 04:00 97.8 67 18 106/72 96 07/13/16 00:00 97.7 71 18 105/63 96 I/O 07/12/16 07/12/16 07/12/16 07/13/16 07/13/16 07/13/16 07:00 15:00 23:00 07:00 15:00 23:00 Intake Total 1541 ml 1200 ml 2066 ml 480 ml 840 ml 1030 ml Output Total 130 ml 75 ml 40 ml 50 ml Balance 1411 ml 1125 ml 2066 ml 440 ml 840 ml 980 ml Intake Oral 480 ml 1200 ml 960 ml 480 ml 840 ml IV Total 1061 ml 1106 ml 1030 ml Output Urine Total 120 ml Drainage Total 10 ml 75 ml 40 ml 50 ml # Voids 2 4 3 8 # Bowel Movements 1 0 Result Diagram: 07/13/16 0433 07/13/163 Objective Remarks GENERAL: patient sitting up in bed. Appears comfortable. Alert and oriented 3. SKIN: Warm and dry. HEAD: Normocephalic. EYES: No scleral icterus. No injection or drainage. NECK: Supple, trachea midline. No JVD. CARDIOVASCULAR: Regular rate and rhythm without murmurs, gallops, or rubs. RESPIRATORY: Breath sounds equal bilaterally. No accessory muscle use. GASTROINTESTINAL: Abdomen soft. nontender. Left lower quadrant and with drain in place. Draining brown feculent fluidas yesterday. About 200 mL since 8 AM.. MUSCULOSKELETAL: No cyanosis, or edema. BACK: Nontender without obvious deformity. No CVA tenderness. A/P Assessment and Plan A/P: // Diverticulitis: w/ Abscess. Failed outpatient therapy w/ Cipro/Flagyl x6 days. Afebrile, no leukocytosis. S/p Blood Cultures, IV Cipro/Flagyl in ER, will follow-up cultures, continue IV Abx. IVF. -07/11 left lower quadrant drain placement. Unfortunately cultures were not obtained -07/12. Left lower quadrant drain in place. Abdominal pain much improved. Continue Cipro and Flagyl. 07/13. Drain leak. Consult IR for repair/replacement of drain. Plan per colorectal surgery. //Intra-Abdominal Abscess: Referred to ER by CT for outpatient CT Abd/Pelvis w / 10cm intra-abdominal abscess. ER physician spoke w/ Dr. Hackett and Dr. Degroot from IR. Unable to upload images on CD w/ patient. -Nothing by mouth. For procedure. Continue IV fluids. -07/11CT-guided drainage of intra-abdominal abscess, with drain placement. No cultures were obtained.. - Continue Cipro and Flagyl. Management as per colorectal surgery. Appreciate assistance. -if patient has fever, very low threshold to start Zosyn. //Abdominal Pain: Secondary to above. -Pt reluctant to take pain medication. -07/12. patient says abdominal pain is much improved after drain placement. Continue under. // HTN: -07/12. Blood pressure slightly decreased. Suspect that patient may be more compliant with his blood pressure medication here than at home. We'll hold his losartan. -07/13. Blood pressure still low. asymptomatic.Continue monitor. Continue beta rosa. //non-anion gap metabolic acidosis.possibly secondary to fluids. Continue monitor. // COPD: Chronic Respiratory Failure. Controlled. Breathing comfortably. Continue home Emerson SANTIAGO prn. // Tobacco Abuse: Pt counselled. -Offered NicoDerm if needed. hypokalemia. replaced.. Follow. FEN: diet per surgical service. D5 half-normal saline. // DVT Prophylaxis: SCD/Teds. patient is ambulatory.anticoagulation as per surgical service. Discharge Planning status post CT guided drainage with drain placement 07/11. He -expect discharge home within the next few days pending clearance by colorectal surgery. Terry Delvalle MD Jul 13, 2016 21:25
[2016-07-13] MEDS: ZOLPIDEM TARTRATE 5 MG TAB PO PRN (22:37)
[2016-07-14] VITALS: BP 127/70; PULSE 68; RESP 18; TEMP 97.3; O2SAT 97
[2016-07-14] MEDS: metroNIDAZOLE 500 MG INJ 100 ML IV SCH ×3 (02:11→18:01)
[2016-07-14 04:00] VITALS: BP 117/69; PULSE 66; RESP 16; TEMP 98; O2SAT 95
[2016-07-14] MEDS: CIPROFLOXACIN 400 MG PREMIX 200 ML IV SCH ×2 (05:54→18:01)
[2016-07-14] MEDS: D5-1/2 NS + KCL 20 MEQ INJ 1,000 ML IV SCH (05:54)
[2016-07-14 07:39] LABS: BASOPHIL % 0.6 % (0.0-2.0); EOSINOPHIL # 0.2 TH/MM3 (0-0.4); HEMATOCRIT 27.9 % (39.0-51.0); HEMO FLAGS DIFF FINAL; LYMPH % 20.6 % (9.0-44.0); LYMPHOCYTE # 1.6 TH/MM3 (1.0-4.8); MEAN CELL VOLUME 88.9 FL (80.0-100.0); MEAN CORPUSCULAR HEMOGLOBIN 30.3 PG (27.0-34.0); MEAN CORPUSCULAR HGB CONC 34.1 % (32.0-36.0); MONO % 11.6 % (0.0-8.0); NEUT % 64.2 % (16.0-70.0); PLATELET COUNT 268 TH/MM3 (150-450); RED BLOOD COUNT 3.14 MIL/MM3 (4.50-5.90); RED CELL DISTRIBUTION WIDTH 15.8 % (11.6-17.2); WHITE BLOOD COUNT 7.7 TH/MM3 (4.0-11.0)
[2016-07-14 08:00] VITALS: BP 99/56; PULSE 77; RESP 16; TEMP 96.8; O2SAT 97
[2016-07-14 08:09] LABS: BICARBONATE 20.3 MEQ/L (21.0-32.0); POTASSIUM 3.5 MEQ/L (3.5-5.1)
[2016-07-14 08:11] LABS: INDIRECT BILIRUBIN 0.2 MG/DL (0.0-0.8); TOTAL BILIRUBIN ADULT 0.3 MG/DL (0.2-1.0)
[2016-07-14] MEDS: SODIUM CHLORIDE 0.9% FLUSH 5 ML FLUSH FLUSH SCH ×2 (09:00→20:08)
[2016-07-14] MEDS: ATENOLOL 50 MG TAB PO SCH (09:00)
[2016-07-14] MEDS: FOLIC ACID 1 MG TAB PO SCH (10:01)
[2016-07-14] MEDS: CYANOCOBALAMIN 1,000 MCG TAB PO SCH (10:02)
[2016-07-14] MEDS: MULTIVITAMINS/MINERALS THERAPEUTIC TAB PO SCH (10:02)
[2016-07-14] MEDS: BUDESONIDE-FORMOTEROL 160/4.5 MCG INHALER INH SCH ×2 (10:06→20:08)
[2016-07-14 12:00] VITALS: BP 94/59; PULSE 79; RESP 18; TEMP 95.8; O2SAT 97
[2016-07-14] MEDS ORDERED: fentaNYL CITRATE 250 MCG/5 ML AMP ONE (15:34)
[2016-07-14] MEDS ORDERED: LORazepam 2 MG/ML VIAL ONE (15:35)
--- NOTE | 2016-07-14 16:02 | PD.RAD ---
Post Procedure Progress Note Pre Procedure Diagnosis: (1) Diverticulitis of intestine with abscess Post Procedure Diagnosis: (1) Diverticulitis of intestine with abscess Procedure Date: Jul 14, 2016 Supervising Radiologist: Rudi Resendez Estimated blood loss: None Anesthesia: Local, Analgesia Plan of Activity Patient to Unit: Nursing Unit Patient Condition: Good Additional Comments: Abscess drain upsized to 14 filipino. Abscess cavity irrigated with 50cc sterile saline. See PACS Report for procedural detail/treatment Rudi Resendez MD Jul 14, 2016 16:02
--- NOTE | 2016-07-14 16:26 | RADRPT ---
EXAM DATE/TIME: 07/14/2016 16:02 [facility] COMPARISON: No previous studies available for comparison. INDICATIONS : Patient is in need of an exchange of existing abdominal drainage catheter due to leakage. MEDICAL HISTORY : History of diverticulitis with intra-abdominal oabscess, HTN, COPD, hyperlipidemia. SURGICAL HISTORY : History of bilateral cataract removal, abdominal drain placement. ENCOUNTER: Initial ACUITY: 4 - 6 days PAIN SCORE: 0/10 FLUORO TIME: 3.3 minutes CONTRAST: MEDICATION(S): 1.) 1 mg lorazepam (Ativan) IV 2.) 100 mcg fentanyl (Sublimaze) IV DEVICE: 1.) 14 Trinidadian 25cm locking pigtail Skater PROCEDURE : 1. Fluoroscopically guided tube exchange. 2. Conscious sedation with continuous EKG and oximetry monitoring. The risks, benefits and alternatives to the procedure were explained and verbal and written consent w as obtained. The site was prepped in sterile fashion. Full sterile technique was used, including ca p, mask, sterile gloves and gown and a large sterile sheet. Hand hygiene and 2% chlorhexidine and/or betadine/alcohol prep was utilized per protocol for cutaneous antisepsis. The previous tube was removed over a 0.035 angle Glidewire. A new 14 Trinidadian tube was advanced into th e abscess cavity without difficulty. The abscess pocket was aspirated with approximately 50 cc of zacarias rile saline. The new tube was sutured into position without difficulty. The tube was placed to suctio n drainage. Conscious sedation was performed with the prescribed dosages and duration as above. The patient tole rated the procedure well and there were no complications. EKG and oximetry remained stable throughou t the procedure. The patient was sent to post anesthesia recovery in stable condition. CONCLUSION: Uncomplicated tube exchange as above. Rudi Resendez MD on July 14, 2016 at 16:23 Board Certified Radiologist. This report was verified electronically.
[2016-07-14 16:30] VITALS: BP 100/64; PULSE 88; RESP 18; TEMP 97.4; O2SAT 96
[2016-07-14] MEDS: ACETAMINOPHEN/HYDROcodone 325 MG/5 MG TAB PO PRN ×2 (18:01→22:11)
[2016-07-14] MEDS: PRAVASTATIN SOD 80 MG TAB PO SCH (20:08)
[2016-07-14 21:30] VITALS: BP 117/62; PULSE 76; RESP 16; TEMP 96.9; O2SAT 97
--- NOTE | 2016-07-14 21:59 | HHI.PR ---
Subjective Remarks C/R Surg afebrile, VSS UO good drained replaced, less drainage Objective - Vital Signs Date Time Temp Pulse Resp B/P Pulse Ox O2 Delivery O2 Flow Rate FiO2 07/14/16 21:30 96.9 76 16 117/62 97 07/10/16 21:30 Room Air Result Diagram: 07/14/16 0555 07/14/16 0555 Objective Remarks PE alert Abd - soft, less tender, drainage clear A/P Assessment and Plan Imp: Diverticulitis with lg abscess - drained, on Ab's cont liq PO watch drainage catheter plan elective resection may be later in week Bobo Hackett MD Jul 14, 2016 21:59
[2016-07-14] MEDS: ZOLPIDEM TARTRATE 5 MG TAB PO PRN (22:11)
--- NOTE | 2016-07-14 23:57 | HHI.PR ---
Subjective Remarks patient seen today around 1 PM. as he feels well. Catheter draining what appears to be stool.says he otherwise feels fine. Has been walking around the unit Objective Vital Signs Date Time Temp Pulse Resp B/P Pulse Ox O2 Delivery O2 Flow Rate FiO2 07/14/16 21:30 96.9 76 16 117/62 97 07/14/16 16:30 97.4 88 18 100/64 96 07/14/16 12:00 95.8 79 18 94/59 97 07/14/16 08:00 96.8 77 16 99/56 97 07/14/16 04:00 98.0 66 16 117/69 95 07/14/16 00:00 97.3 68 18 127/70 97 I/O 07/13/16 07/13/16 07/13/16 07/14/16 07/14/16 07/14/16 07:00 15:00 23:00 07:00 15:00 23:00 Intake Total 480 ml 840 ml 1510 ml 1416 ml 1311 ml Output Total 40 ml 550 ml 1020 ml 600 ml Balance 440 ml 840 ml 960 ml 396 ml 711 ml Intake Oral 480 ml 840 ml 480 ml 480 ml 640 ml IV Total 1030 ml 936 ml 671 ml Output Urine Total 500 ml 1000 ml 600 ml Drainage Total 40 ml 50 ml 20 ml # Voids 3 8 # Bowel Movements 0 1 Result Diagram: 07/14/16 0555 07/14/[address] guided drain placement to left lower quadrant diverticular abscess on 07/11. Exchange on 07/14 by IR. Objective Remarks GENERAL: patient sitting up in bed. also seen walking around unit. Appears comfortable. Alert and oriented 3. SKIN: Warm and dry. HEAD: Normocephalic. EYES: No scleral icterus. No injection or drainage. NECK: Supple, trachea midline. No JVD. CARDIOVASCULAR: Regular rate and rhythm without murmurs, gallops, or rubs. RESPIRATORY: Breath sounds equal bilaterally. No accessory muscle use. GASTROINTESTINAL: Abdomen soft. nontender. Left lower quadrant and with drain in place. Draining brown feculent fluid as yesterday. About 100 mL since 8 AM.. MUSCULOSKELETAL: No cyanosis, or edema. BACK: Nontender without obvious deformity. No CVA tenderness. A/P Assessment and Plan A/P: // Diverticulitis: w/ Abscess. Failed outpatient therapy w/ Cipro/Flagyl x6 days. Afebrile, no leukocytosis. S/p Blood Cultures, IV Cipro/Flagyl in ER, will follow-up cultures, continue IV Abx. IVF. -07/11 left lower quadrant drain placement. Unfortunately cultures were not obtained -07/12. Left lower quadrant drain in place. Abdominal pain much improved. Continue Cipro and Flagyl. 07/13. Drain leak. Consult IR for repair/replacement of drain. 07/14. Continues draining stool.Plan per colorectal surgery.possible resection later this week. //Intra-Abdominal Abscess: Referred to ER by [facility] for outpatient CT Abd/Pelvis w / 10cm intra-abdominal abscess. ER physician spoke w/ Dr. Hackett and Dr. Degroot from IR. Unable to upload images on CD w/ patient. -Nothing by mouth. For procedure. Continue IV fluids. -07/11CT-guided drainage of intra-abdominal abscess, with drain placement. No cultures were obtained.. - Continue Cipro and Flagyl. Management as per colorectal surgery. Appreciate assistance. -if patient has fever, very low threshold to start Zosyn. //Abdominal Pain: Secondary to above. -Pt reluctant to take pain medication. -07/12. patient says abdominal pain is much improved after drain placement. Continue under. // HTN: -07/12. Blood pressure slightly decreased. Suspect that patient may be more compliant with his blood pressure medication here than at home. We'll hold his losartan. -07/13. Blood pressure still low. asymptomatic.Continue monitor. Continue beta rosa. //non-anion gap metabolic acidosis.possibly secondary to fluids. Continue monitor. // COPD: Chronic Respiratory Failure. Controlled. Breathing comfortably. Continue home MDI, Emerson prn. // Tobacco Abuse: Pt counselled. -Offered NicoDerm if needed. hypokalemia. replaced.. Follow. FEN: diet per surgical service. D5 half-normal saline. // DVT Prophylaxis: SCD/Teds. patient is ambulatory.anticoagulation as per surgical service. Discharge Planning status post CT guided drainage with drain placement 07/11. -plan for possible colon resection later this week as per colorectal surgery. Terry Delvalle MD Jul 14, 2016 23:57
[2016-07-15 01:15] VITALS: BP 96/64; PULSE 90; RESP 16; TEMP 97.4; O2SAT 96
[2016-07-15] MEDS: metroNIDAZOLE 500 MG INJ 100 ML IV SCH ×3 (01:39→18:00)
[2016-07-15] MEDS: CIPROFLOXACIN 400 MG PREMIX 200 ML IV SCH ×2 (05:18→18:00)
[2016-07-15 06:00] VITALS: BP 107/62; PULSE 67; RESP 16; TEMP 97.4; O2SAT 95
[2016-07-15 06:02] LABS: AUTOMATED NEUTROPHIL # 6.4 TH/MM3 (1.8-7.7); BASOPHIL # 0.1 TH/MM3 (0-0.2); BASOPHIL % 0.6 % (0.0-2.0); EOSINOPHIL # 0.2 TH/MM3 (0-0.4); EOSINOPHIL % 2.7 % (0.0-4.0); HEMATOCRIT 28.1 % (39.0-51.0); HEMO FLAGS DIFF FINAL; LYMPHOCYTE # 1.5 TH/MM3 (1.0-4.8); MEAN CELL VOLUME 88.9 FL (80.0-100.0); MEAN CORPUSCULAR HEMOGLOBIN 30.4 PG (27.0-34.0); MEAN CORPUSCULAR HGB CONC 34.2 % (32.0-36.0); MONO % 10.6 % (0.0-8.0); NEUT % 70.1 % (16.0-70.0); PLATELET COUNT 274 TH/MM3 (150-450); RED BLOOD COUNT 3.16 MIL/MM3 (4.50-5.90); RED CELL DISTRIBUTION WIDTH 15.6 % (11.6-17.2); WHITE BLOOD COUNT 9.2 TH/MM3 (4.0-11.0)
[2016-07-15 06:24] LABS: BICARBONATE 21.8 MEQ/L (21.0-32.0); POTASSIUM 3.3 MEQ/L (3.5-5.1)
[2016-07-15 08:00] VITALS: BP 100/64; PULSE 74; RESP 18; TEMP 98.2; O2SAT 98
[2016-07-15] MEDS: ATENOLOL 50 MG TAB PO SCH (09:00)
[2016-07-15] MEDS: MULTIVITAMINS/MINERALS THERAPEUTIC TAB PO SCH (09:00)
[2016-07-15] MEDS: FOLIC ACID 1 MG TAB PO SCH (09:00)
[2016-07-15] MEDS: SODIUM CHLORIDE 0.9% FLUSH 5 ML FLUSH FLUSH SCH ×2 (09:00→20:04)
[2016-07-15] MEDS: CYANOCOBALAMIN 1,000 MCG TAB PO SCH (09:00)
[2016-07-15] MEDS: D5-1/2 NS + KCL 20 MEQ INJ 1,000 ML IV SCH (09:01)
[2016-07-15] MEDS: BUDESONIDE-FORMOTEROL 160/4.5 MCG INHALER INH SCH ×2 (09:06→20:04)
[2016-07-15 12:00] VITALS: BP 98/57; PULSE 83; RESP 16; TEMP 97.5; O2SAT 98
[2016-07-15 16:00] VITALS: BP 107/68; PULSE 94; RESP 16; TEMP 96.2; O2SAT 98
--- NOTE | 2016-07-15 16:49 | HHI.PR ---
Subjective Remarks C/R Surg afebrile, VSS UO good drained replaced, less drainage, still feculent Objective - Vital Signs Date Time Temp Pulse Resp B/P Pulse Ox O2 Delivery O2 Flow Rate FiO2 07/15/16 16:00 96.2 94 16 107/68 98 Result Diagram: 07/15/1644407/15/16444 Objective Remarks PE alert Abd - soft, less tender, no mass A/P Assessment and Plan Imp: Diverticulitis with lg abscess - drained, on Ab's cont liq PO watch drainage catheter plan elective resection may be later in week - poss Thursday Bobo Hackett MD Jul 15, 2016 16:49
--- NOTE | 2016-07-15 19:43 | PD.ID.CON ---
History of Present Illness Service iD Consult Requested By Dr Delvalle Reason for Consult intraabdominal abscess Primary Care Physician Mable Tejada MD Diagnoses: History of Present Illness 66 yo male developped LLQ abdominal pain for 2.5-3 weeks took po abx prescribed [facility] ([facility] herzog) and cont to experience symptoms He ended up having CT which showed diverticulatis and abscess Pt was admitted to the hospital and has percutaneous draiange on 07/11 and has exchange yday He is now on IV abx and tolerates clear liquid diet Having diarrhea No nausea, vomiting Surgery scheduled for thursday Review of Systems Other as per history of present illness, the rest of 12 point review is negative Past Family Social History Allergies: Coded Allergies: No Known Allergies (Unverified , 07/10/16) Past Medical History HTN, Hyperlipidemia and COPD Past Surgical History Bilateral Cataract Surgery Active Ordered Medications Medications where reviewed in EMR Antibiotics Include: rosenda anderson Family History Reviewed. No h/o DM or CAD Social History 4-5 Vodka Drinks/night. Smokes 1ppd. Negative for drugs. Physical Exam Vital Signs Vital Signs Date Time Temp Pulse Resp B/P Pulse Ox O2 Delivery O2 Flow Rate FiO2 07/15/16 16:00 96.2 94 16 107/68 98 07/15/16 12:00 97.5 83 16 98/57 98 07/15/16 08:00 98.2 74 18 100/64 98 07/15/16 06:00 97.4 67 16 107/62 95 07/15/16 01:15 97.4 90 16 96/64 96 07/14/16 21:30 96.9 76 16 117/62 97 Physical Exam CONSTITUTIONAL/GENERAL: This is an adequately nourished patient, in no apparent distress. SKIN: No jaundice, rashes, or lesions.Skin temperature appropriate. Not diaphoretic. HEAD: Atraumatic. Normocephalic. EYES: Pupils equal and round and reactive. Extraocular motions intact. No scleral icterus. No injection or drainage. Fundi not examined. ENT: Hearing grossly normal. Nose without bleeding or purulent drainage. Oral mucosae without visible erythema, exudates, masses, or lesions. Poor dentition NECK: Trachea midline. Supple, nontender. CARDIOVASCULAR: Regular rate and rhythm without murmurs, gallops, or rubs. No JVD. . RESPIRATORY/CHEST: Symmetric, unlabored respirations. Clear to auscultation. Breath sounds equal bilaterally. No wheezes, rales, or rhonchi. GASTROINTESTINAL: Abdomen soft, + tender in LLQ, mildly distended. Drain in place with feculent material No hepato-splenomegaly, or palpable masses. No guarding. Bowel sounds present. MUSCULOSKELETAL: Extremities without clubbing, cyanosis, or edema. No joint tenderness or effusion noted. No calf tenderness. No mottling or clubbing. NEUROLOGICAL: Awake and alert. Motor and sensory grossly within normal limits. Follows commands. Normal speech. Moves all extremities. PSYCHIATRIC: No obvious anxiety/depression. no apparent hallucinations or other psychotic thought process. Laboratory Laboratory Tests Test 07/15/16 04:45 White Blood Count 9.2 Red Blood Count 3.16 Hemoglobin 9.6 Hematocrit 28.1 Mean Corpuscular Volume 88.9 Mean Corpuscular Hemoglobin 30.4 Mean Corpuscular Hemoglobin 34.2 Concent Red Cell Distribution Width 15.6 Platelet Count 274 Mean Platelet Volume 8.0 Neutrophils (%) (Auto) 70.1 Lymphocytes (%) (Auto) 16.0 Monocytes (%) (Auto) 10.6 Eosinophils (%) (Auto) 2.7 Basophils (%) (Auto) 0.6 Neutrophils # (Auto) 6.4 Lymphocytes # (Auto) 1.5 Monocytes # (Auto) 1.0 Eosinophils # (Auto) 0.2 Basophils # (Auto) 0.1 CBC Comment DIFF FINAL Differential Comment Sodium Level 137 Potassium Level 3.3 Chloride Level 105 Carbon Dioxide Level 21.8 Anion Gap 10 Blood Urea Nitrogen 5 Creatinine 0.76 Estimat Glomerular Filtration 103 Rate Random Glucose 111 Calcium Level 7.9 Result Diagram: 07/15/16 0445 07/15/16 0445 Imaging Last Impressions Catheter Change 07/14/16 0000 Signed Impressions: Service Date/Time: Thursday, July 14, 2016 16:02 - CONCLUSION: Uncomplicated tube exchange as above. Rudi Resendez MD Abscess Drainage CT 07/11/16 0000 Signed Impressions: Service Date/Time: Monday, July 11, 2016 14:14 - CONCLUSION: Uncomplicated CT guided drainage. Reece Elkins MD Assessment and Plan Assessment and Plan Intraabdominal abscess 2/2 diverticulitis sp percutaneous drainage cont IV abx agree with plan for surgery Kassandra Granados MD Jul 15, 2016 19:43
[2016-07-15] MEDS: PRAVASTATIN SOD 80 MG TAB PO SCH (20:04)
[2016-07-15 20:15] VITALS: BP 117/62; PULSE 89; RESP 18; TEMP 97.7; O2SAT 97
--- NOTE | 2016-07-15 20:43 | RADRPT ---
EXAM DATE/TIME: 07/15/2016 20:30 [facility] COMPARISON: No previous studies available for comparison. INDICATIONS : Evaluate for pneumonia, pneumothorax or communicable disease. Pre op colon surgery. MEDICAL HISTORY : Hypertension. Chronic obstructive pulmonary disease. SURGICAL HISTORY : None. ENCOUNTER: Initial ACUITY: 1 day PAIN SCORE: 0/10 LOCATION: Bilateral chest FINDINGS: PA and lateral views of the chest demonstrate the lungs to be symmetrically aerated without evidence of mass, infiltrate or effusion. The cardiomediastinal contours are unremarkable. Osseous structure s are intact. CONCLUSION: No acute disease. Wade Hanna MD on July 15, 2016 at 20:41 Board Certified Radiologist. This report was verified electronically.
[2016-07-15] MEDS: ACETAMINOPHEN/HYDROcodone 325 MG/5 MG TAB PO PRN (22:07)
[2016-07-15] MEDS: ZOLPIDEM TARTRATE 5 MG TAB PO PRN (22:07)
--- NOTE | 2016-07-15 23:54 | HHI.PR ---
Subjective Remarks patient seen today around 11:30 AM. Patient again says he feels well. Denies any chest pain or shortness of breath. Denies any nausea or vomiting. He is tolerating full liquid diet. He underwent IR exchanger catheter last night Tolerated well. Decreased drainage, however still feculent. hypokalemia. Increase potassium to fluids. Objective Vital Signs Date Time Temp Pulse Resp B/P Pulse Ox O2 Delivery O2 Flow Rate FiO2 07/15/16 20:15 97.7 89 18 117/62 97 07/15/16 16:00 96.2 94 16 107/68 98 07/15/16 12:00 97.5 83 16 98/57 98 07/15/16 08:00 98.2 74 18 100/64 98 07/15/16 06:00 97.4 67 16 107/62 95 07/15/16 01:15 97.4 90 16 96/64 96 I/O 07/14/16 07/14/16 07/14/16 07/15/16 07/15/16 07/15/16 07:00 15:00 23:00 07:00 15:00 23:00 Intake Total 1416 ml 1311 ml 480 ml 931 ml 840 ml 841 ml Output Total 1020 ml 600 ml 415 ml 720 ml 30 ml Balance 396 ml 711 ml 65 ml 211 ml 840 ml 811 ml Intake Oral 480 ml 640 ml 480 ml 840 ml IV Total 936 ml 671 ml 931 ml 841 ml Output Urine Total 1000 ml 600 ml 400 ml 700 ml Drainage Total 20 ml 15 ml 20 ml 30 ml # Voids 6 # Bowel Movements 0 Result Diagram: 07/15/16 0445 07/15/[address] guided drain placement to left lower quadrant diverticular abscess on 07/11. Exchange on 07/14 by IR. Objective Remarks GENERAL: patient sitting up in chair at bedside. Appears comfortable. Alert and oriented 3. SKIN: Warm and dry. HEAD: Normocephalic. EYES: No scleral icterus. No injection or drainage. NECK: Supple, trachea midline. No JVD. CARDIOVASCULAR: Regular rate and rhythm without murmurs, gallops, or rubs. RESPIRATORY: Breath sounds equal bilaterally. No accessory muscle use. GASTROINTESTINAL: Abdomen soft. nontender. Left lower quadrant with drain in place. Draining brown feculent fluid, much less than yesterday. About 20 mL since 8 AM.. MUSCULOSKELETAL: No cyanosis, or edema. BACK: Nontender without obvious deformity. No CVA tenderness. A/P Assessment and Plan A/P: // Diverticulitis: w/ Abscess. Failed outpatient therapy w/ Cipro/Flagyl x6 days. Afebrile, no leukocytosis. S/p Blood Cultures, IV Cipro/Flagyl in ER, will follow-up cultures, continue IV Abx. IVF. -07/11 left lower quadrant drain placement. Unfortunately cultures were not obtained -07/12. Left lower quadrant drain in place. Abdominal pain much improved. Continue Cipro and Flagyl. 07/13. Drain leak. Consult IR for repair/replacement of drain. 07/14. Continues draining stool.Plan per colorectal surgery.possible resection later this week. 07/15. still with feculent output. hypokalemia. Add potassium to fluids.check magnesium. Plan per surgery. //Intra-Abdominal Abscess: Referred to ER by [facility] for outpatient CT Abd/Pelvis w / 10cm intra-abdominal abscess. ER physician spoke w/ Dr. Hackett and Dr. Degroot from IR. Unable to upload images on CD w/ patient. -Nothing by mouth. For procedure. Continue IV fluids. -07/11CT-guided drainage of intra-abdominal abscess, with drain placement. No cultures were obtained.. - Continue Cipro and Flagyl. Management as per colorectal surgery. Appreciate assistance. -if patient has fever, very low threshold to start Zosyn. //Abdominal Pain: Secondary to above. -Pt reluctant to take pain medication. -07/12. patient says abdominal pain is much improved after drain placement. -continues with abdominal pain controlled. // HTN: -07/12. Blood pressure slightly decreased. Suspect that patient may be more compliant with his blood pressure medication here than at home. We'll hold his losartan. -07/13. Blood pressure still low. asymptomatic.Continue monitor. Continue beta rosa. -07/15. Decrease atenolol to 50 mg dailydue to low blood pressure. Patientreports he is noncompliant at home, so this was likely increased by primary care and response to patient noncompliance.. //non-anion gap metabolic acidosis.possibly secondary to fluids. Continue monitor. // COPD: Chronic Respiratory Failure. Controlled. Breathing comfortably. Continue home Emerson SANTI[employer] prn. // Tobacco Abuse: Pt counselled. -Offered NicoDerm if needed. hypokalemia. replaced.. Follow. FEN: diet per surgical service. D5 half-normal saline. // DVT Prophylaxis: SCD/Teds. patient is ambulatory.anticoagulation as per surgical service. Discharge Planning status post CT guided drainage with drain placement 07/11. -plan for possible colon resection later this week as per colorectal surgery. Terry Delvalle MD Jul 15, 2016 23:54
[2016-07-16] VITALS: BP 107/64; PULSE 85; RESP 16; TEMP 97.4; O2SAT 97
[2016-07-16] MEDS: D5-1/2 NS + KCL 40 MEQ INJ 1,000 ML IV SCH ×2 (02:11→20:33)
[2016-07-16] MEDS: metroNIDAZOLE 500 MG INJ 100 ML IV SCH ×3 (02:11→19:21)
[2016-07-16 05:15] VITALS: BP 105/69; PULSE 91; RESP 16; TEMP 97.8; O2SAT 96
[2016-07-16] MEDS: CIPROFLOXACIN 400 MG PREMIX 200 ML IV SCH ×2 (05:23→17:30)
[2016-07-16 07:35] LABS: AUTOMATED NEUTROPHIL # 6.1 TH/MM3 (1.8-7.7); BASOPHIL # 0.1 TH/MM3 (0-0.2); BASOPHIL % 0.6 % (0.0-2.0); EOSINOPHIL # 0.3 TH/MM3 (0-0.4); EOSINOPHIL % 3.2 % (0.0-4.0); HEMATOCRIT 30.2 % (39.0-51.0); HEMO FLAGS DIFF FINAL; LYMPH % 21.3 % (9.0-44.0); MEAN CELL VOLUME 89.3 FL (80.0-100.0); MEAN CORPUSCULAR HEMOGLOBIN 30.4 PG (27.0-34.0); MONO % 10.5 % (0.0-8.0); NEUT % 64.4 % (16.0-70.0); PLATELET COUNT 323 TH/MM3 (150-450); RED BLOOD COUNT 3.38 MIL/MM3 (4.50-5.90); RED CELL DISTRIBUTION WIDTH 15.7 % (11.6-17.2); WHITE BLOOD COUNT 9.6 TH/MM3 (4.0-11.0)
[2016-07-16 07:47] LABS: BICARBONATE 22.6 MEQ/L (21.0-32.0); MAGNESIUM 1.1 MG/DL (1.5-2.5); POTASSIUM 3.5 MEQ/L (3.5-5.1)
[2016-07-16 08:00] VITALS: BP 105/61; PULSE 77; RESP 18; TEMP 96.9; O2SAT 97
[2016-07-16] MEDS: FOLIC ACID 1 MG TAB PO SCH (09:12)
[2016-07-16] MEDS: MULTIVITAMINS/MINERALS THERAPEUTIC TAB PO SCH (09:12)
[2016-07-16] MEDS: CYANOCOBALAMIN 1,000 MCG TAB PO SCH (09:12)
[2016-07-16] MEDS: BUDESONIDE-FORMOTEROL 160/4.5 MCG INHALER INH SCH ×2 (09:13→20:32)
[2016-07-16] MEDS: SODIUM CHLORIDE 0.9% FLUSH 5 ML FLUSH FLUSH SCH ×2 (09:13→20:33)
[2016-07-16] MEDS: ATENOLOL 50 MG TAB PO SCH (09:13)
[2016-07-16] MEDS ORDERED: MAGNESIUM SULFATE 1 GM PREMIX 100 ML IV ONE (10:15)
[2016-07-16 11:37] VITALS: BP_SYST 106; BP_SYST 115; BP_DIAS 59; BP_DIAS 80; PULSE 84; RESP 16; TEMP 96.5; O2SAT 96
[2016-07-16 16:00] VITALS: BP 96/59; PULSE 76; RESP 18; TEMP 98; O2SAT 97
[2016-07-16 20:00] VITALS: BP 116/55; PULSE 53; RESP 16; TEMP 97.3; O2SAT 97
[2016-07-16] MEDS: PRAVASTATIN SOD 80 MG TAB PO SCH (20:32)
--- NOTE | 2016-07-16 21:04 | HHI.PR ---
Subjective Remarks C/R Surg afebrile, VSS UO good drained replaced, less drainage, still feculent Objective - Vital Signs Date Time Temp Pulse Resp B/P Pulse Ox O2 Delivery O2 Flow Rate FiO2 07/16/16 20:00 97.3 53 16 116/55 97 Result Diagram: 07/16/16 0542 07/16/16 0542 Objective Remarks PE alert Abd - soft, less tender, no mass, drain stool A/P Assessment and Plan Imp: Diverticulitis with lg abscess - drained, on Ab's cont liq PO plan elective resection may be later in week - poss Thursday, gentle bowel prep Bobo Hackett MD Jul 16, 2016 21:04
[2016-07-16] MEDS: ZOLPIDEM TARTRATE 5 MG TAB PO PRN (22:06)
--- NOTE | 2016-07-16 22:50 | HHI.PR ---
Subjective Remarks patient seen today around 2 PM. Says he's feeling well. Walking around the halls still. Patient denies ever having a surgical Anesthesia reaction. He denies any history of exertional chest pain, he says he can walk a couple blocks, but is limited by knee pain.however does get short of breath walking up a couple flights of stairs. He does snore night, however does not stop breathing according to . patient has not been on steroids over the past year. Objective Vital Signs Date Time Temp Pulse Resp B/P Pulse Ox O2 Delivery O2 Flow Rate FiO2 07/16/16 20:00 97.3 53 16 116/55 97 07/16/16 16:00 98.0 76 18 96/59 97 07/16/16 11:37 96.5 84 16 106/59 96 07/16/16 08:00 96.9 77 18 105/61 97 07/16/16 05:15 97.8 91 16 105/69 96 07/16/16 00:00 97.4 85 16 107/64 97 I/O 07/15/16 07/15/16 07/15/16 07/16/16 07/16/16 07/16/16 06:59 14:59 22:59 06:59 14:59 22:59 Intake Total 931 ml 1681 ml 893 ml 960 ml 1206 ml Output Total 720 ml 510 ml 820 ml 50 ml Balance 211 ml 1171 ml 73 ml 960 ml 1156 ml Intake Oral 840 ml 960 ml IV Total 931 ml 841 ml 893 ml 1206 ml Output Urine Total 700 ml 450 ml 800 ml Drainage Total 20 ml 60 ml 20 ml 50 ml # Voids 6 3 # Bowel Movements 0 1 Result Diagram: 07/16/16 0542 07/16/[address] guided drain placement to left lower quadrant diverticular abscess on 07/11. Exchange on 07/14 by IR. Objective Remarks GENERAL: patient sitting up in chair at bedside. Appears comfortable. Alert and oriented 3.family at bedside. SKIN: Warm and dry. HEAD: Normocephalic. EYES: No scleral icterus. No injection or drainage. NECK: Supple, trachea midline. No JVD. CARDIOVASCULAR: Regular rate and rhythm without murmurs, gallops, or rubs. RESPIRATORY: Breath sounds equal bilaterally. No accessory muscle use. GASTROINTESTINAL: Abdomen soft. nontender. Left lower quadrant with drain in place. Draining small amount of brown feculent fluid. MUSCULOSKELETAL: No cyanosis. patient does have trace edema bilateral lower caries. No discoloration. BACK: Nontender without obvious deformity. No CVA tenderness. A/P Assessment and Plan A/P: // Diverticulitis: w/ Abscess. Failed outpatient therapy w/ Cipro/Flagyl x6 days. Afebrile, no leukocytosis. S/p Blood Cultures, IV Cipro/Flagyl in ER, will follow-up cultures, continue IV Abx. IVF. -07/11 left lower quadrant drain placement. Unfortunately cultures were not obtained -07/12. Left lower quadrant drain in place. Abdominal pain much improved. Continue Cipro and Flagyl. 07/13. Drain leak. Consult IR for repair/replacement of drain. 07/14. Continues draining stool.Plan per colorectal surgery.possible resection later this week. 07/15. still with feculent output. hypokalemia. Add potassium to fluids.check magnesium. Plan per surgery. 07/16. Patient does have a little peripheral edema to getting fluids, as well as drinking. Will hold fluids for now. Restart prior to surgery. Hypokalemia resolved. colorectal plans for surgery on Thursday. patient is a chronic smoker, has COPD.Patient may likely have sleep apnea, however no history of heart disease or chest pain. Preoperative chest x-ray normal. EKG on admission with no change since 2012. //Intra-Abdominal Abscess: Referred to ER by [facility] for outpatient CT Abd/Pelvis w / 10cm intra-abdominal abscess. ER physician spoke w/ Dr. Hackett and Dr. Degroot from IR. Unable to upload images on CD w/ patient. -Nothing by mouth. For procedure. Continue IV fluids. -07/11CT-guided drainage of intra-abdominal abscess, with drain placement. No cultures were obtained.. - Continue Cipro and Flagyl. Management as per colorectal surgery. Appreciate assistance. -if patient has fever, very low threshold to start Zosyn. -colorectal plans for surgery on Thursday. //Abdominal Pain: Secondary to above. -Pt reluctant to take pain medication. -07/12. patient says abdominal pain is much improved after drain placement. -continues with abdominal pain controlled. // HTN: -07/12. Blood pressure slightly decreased. Suspect that patient may be more compliant with his blood pressure medication here than at home. We'll hold his losartan. -07/13. Blood pressure still low. asymptomatic.Continue monitor. Continue beta rosa. -07/15. Decrease atenolol to 50 mg dailydue to low blood pressure. Patientreports he is noncompliant at home, so this was likely increased by primary care and response to patient noncompliance.. 07/16. Blood pressure stable on current medications. Continue monitor. //non-anion gap metabolic acidosis.possibly secondary to fluids. Continue monitor. // COPD: Chronic Respiratory Failure. Controlled. Breathing comfortably. Continue home PAMELA, Emerson prn. // Tobacco Abuse: Pt counselled. -Offered NicoDerm if needed. hypokalemia. replaced.. Follow. FEN: diet per surgical service. D5 half-normal saline. // DVT Prophylaxis: SCD/Teds. patient is ambulatory.anticoagulation as per surgical service. Discharge Planning status post CT guided drainage with drain placement 07/11. -plan for possible colon resection later this week as per colorectal surgery. Terry Delvalle MD Jul 16, 2016 22:50
[2016-07-17 00:15] VITALS: BP 133/73; PULSE 98; RESP 18; TEMP 97.6; O2SAT 98
[2016-07-17] MEDS: metroNIDAZOLE 500 MG INJ 100 ML IV SCH ×3 (00:29→20:34)
[2016-07-17 05:00] VITALS: BP 129/78; PULSE 94; RESP 16; TEMP 97.4; O2SAT 97
[2016-07-17] MEDS: CIPROFLOXACIN 400 MG PREMIX 200 ML IV SCH ×2 (05:27→16:09)
[2016-07-17 06:39] LABS: AUTOMATED NEUTROPHIL # 5.8 TH/MM3 (1.8-7.7); BASOPHIL # 0.1 TH/MM3 (0-0.2); BASOPHIL % 0.7 % (0.0-2.0); EOSINOPHIL # 0.3 TH/MM3 (0-0.4); EOSINOPHIL % 3.2 % (0.0-4.0); HEMO FLAGS DIFF FINAL; LYMPH % 20.3 % (9.0-44.0); LYMPHOCYTE # 1.8 TH/MM3 (1.0-4.8); MEAN CELL VOLUME 88.4 FL (80.0-100.0); MEAN CORPUSCULAR HEMOGLOBIN 30.1 PG (27.0-34.0); MONO % 9.5 % (0.0-8.0); NEUT % 66.3 % (16.0-70.0); PLATELET COUNT 357 TH/MM3 (150-450); RED BLOOD COUNT 3.39 MIL/MM3 (4.50-5.90); RED CELL DISTRIBUTION WIDTH 16.3 % (11.6-17.2); WHITE BLOOD COUNT 8.8 TH/MM3 (4.0-11.0)
[2016-07-17 07:03] LABS: BICARBONATE 20.7 MEQ/L (21.0-32.0); POTASSIUM 3.6 MEQ/L (3.5-5.1)
--- NOTE | 2016-07-17 07:13 | HHI.PR ---
Subjective Remarks C/R Surg afebrile, VSS UO good drained replaced, less drainage, still feculent Objective - Vital Signs Date Time Temp Pulse Resp B/P Pulse Ox O2 Delivery O2 Flow Rate FiO2 07/17/16 05:00 97.4 94 16 129/78 97 Result Diagram: 07/17/1618 07/17/1618 Objective Remarks PE alert Abd - soft, less tender, no mass, drain stool +flatus A/P Assessment and Plan Imp: Diverticulitis with lg abscess - drained, on Ab's cont liq PO - NPO after MN plan elective resection may be later in week - poss Thursday, gentle bowel prep Bobo Hackett MD Jul 17, 2016 07:13
[2016-07-17 08:00] VITALS: BP 119/63; PULSE 79; RESP 16; TEMP 97.4; O2SAT 96
[2016-07-17] MEDS: CYANOCOBALAMIN 1,000 MCG TAB PO SCH (09:27)
[2016-07-17] MEDS: MULTIVITAMINS/MINERALS THERAPEUTIC TAB PO SCH (09:27)
[2016-07-17] MEDS: FOLIC ACID 1 MG TAB PO SCH (09:28)
[2016-07-17] MEDS: ATENOLOL 50 MG TAB PO SCH (09:37)
[2016-07-17] MEDS: SODIUM CHLORIDE 0.9% FLUSH 5 ML FLUSH FLUSH SCH ×2 (09:37→20:31)
[2016-07-17] MEDS: BUDESONIDE-FORMOTEROL 160/4.5 MCG INHALER INH SCH ×2 (09:37→20:38)
[2016-07-17 12:00] VITALS: BP 106/68; PULSE 68; RESP 18; TEMP 96.6; O2SAT 98
[2016-07-17] MEDS ORDERED: MAGNESIUM CITRATE SOLN 300 ML BTL PO ONE ×2 (12:00→16:00)
[2016-07-17 16:00] VITALS: BP 114/68; PULSE 73; RESP 16; TEMP 98.6; O2SAT 98
[2016-07-17] MEDS: MORPHINE SULFATE 4 MG/ML INJ IV PUSH PRN ×3 (17:34→23:45)
[2016-07-17 20:00] VITALS: BP 118/69; PULSE 90; RESP 18; TEMP 98.7; O2SAT 95
[2016-07-17] MEDS: PRAVASTATIN SOD 80 MG TAB PO SCH (20:31)
[2016-07-17] MEDS: ZOLPIDEM TARTRATE 5 MG TAB PO PRN (23:48)
[2016-07-18] VITALS (7 sets, daily range): BP systolic 100–131; BP diastolic 59–82; PULSE 76–100; RESP 16–20; TEMP 96.1–98.6; O2SAT 93–100
[2016-07-18] MEDS ORDERED: MAGNESIUM SULFATE 1 GM PREMIX 100 ML IV ONE (00:15)
--- NOTE | 2016-07-18 01:03 | HHI.PR ---
Subjective Remarks late entry. Patient seen on 07/17/16 around 3. Says he is feeling well. Denies any chest pain, shortness of breath. Reports pain is controlled. Does have what appears to be left a.c. thrombosis at IV site, for which heat pad ordered.. No indication of DVT. Objective Vital Signs Date Time Temp Pulse Resp B/P Pulse Ox O2 Delivery O2 Flow Rate FiO2 07/17/16 23:50 18 07/17/16 20:00 98.7 90 18 118/69 95 07/17/16 16:00 98.6 73 16 114/68 98 07/17/16 12:00 96.6 68 18 106/68 98 07/17/16 08:00 97.4 79 16 119/63 96 07/17/16 05:00 97.4 94 16 129/78 97 07/17/16 00:15 97.6 98 18 133/73 98 I/O 07/17/16 07/17/16 07/17/16 07/18/16 07/18/16 07/18/16 07:00 15:00 23:00 07:00 15:00 23:00 Intake Total 650 ml 480 ml Output Total 1050 ml Balance -400 ml 480 ml Intake Oral 480 ml IV Total 650 ml Output Urine Total 1000 ml Drainage Total 50 ml # Voids 3 # Bowel Movements 1 Result Diagram: 07/17/16 0618 07/17/[address] guided drain placement to left lower quadrant diverticular abscess on 07/11. Exchange on 07/14 by IR. Objective Remarks GENERAL: patient sitting up in chair at bedside. Appears comfortable. Alert and oriented 3. SKIN: Warm and dry. HEAD: Normocephalic. EYES: No scleral icterus. No injection or drainage. NECK: Supple, trachea midline. No JVD. CARDIOVASCULAR: Regular rate and rhythm without murmurs, gallops, or rubs. RESPIRATORY: Breath sounds equal bilaterally. No accessory muscle use. GASTROINTESTINAL: Abdomen soft. nontender. Left lower quadrant with drain in place. Draining small amount of brown feculent fluid, as before. MUSCULOSKELETAL: No cyanosis. patient does have trace edema bilateral lower caries. No discoloration. BACK: Nontender without obvious deformity. No CVA tenderness. A/P Assessment and Plan A/P: // Diverticulitis: w/ Abscess. Failed outpatient therapy w/ Cipro/Flagyl x6 days. Afebrile, no leukocytosis. S/p Blood Cultures, IV Cipro/Flagyl in ER, will follow-up cultures, continue IV Abx. IVF. -07/11 left lower quadrant drain placement. Unfortunately cultures were not obtained -07/12. Left lower quadrant drain in place. Abdominal pain much improved. Continue Cipro and Flagyl. 07/13. Drain leak. Consult IR for repair/replacement of drain. 07/14. Continues draining stool.Plan per colorectal surgery.possible resection later this week. 07/15. still with feculent output. hypokalemia. Add potassium to fluids.check magnesium. Plan per surgery. 07/16. Patient does have a little peripheral edema to getting fluids, as well as drinking. Will hold fluids for now. Restart prior to surgery. Hypokalemia resolved. colorectal plans for surgery on Thursday. patient is a chronic smoker, has COPD.Patient may likely have sleep apnea, however no history of heart disease or chest pain. Preoperative chest x-ray normal. EKG on admission with no change since 2012. 07/17.magnesium replaced. Plan for surgery 07/18. Left a.c. superficial thrombosis. heat pack applied. //Intra-Abdominal Abscess: [facility] Abd/Pelvis w / 10cm intra-abdominal abscess. ER physician spoke w/ Dr. Hackett and Dr. Degroot from IR. Unable to upload images on CD w/ patient. -Nothing by mouth. For procedure. Continue IV fluids. -07/11CT-guided drainage of intra-abdominal abscess, with drain placement. No cultures were obtained.. - Continue Cipro and Flagyl. Management as per colorectal surgery. Appreciate assistance. -if patient has fever, very low threshold to start Zosyn. -colorectal plans for surgery tomorrow //Abdominal Pain: Secondary to above. -Pt reluctant to take pain medication. -07/12. patient says abdominal pain is much improved after drain placement. -continues with abdominal pain controlled. // HTN: -07/12. Blood pressure slightly decreased. Suspect that patient may be more compliant with his blood pressure medication here than at home. We'll hold his losartan. -07/13. Blood pressure still low. asymptomatic.Continue monitor. Continue beta rosa. -07/15. Decrease atenolol to 50 mg dailydue to low blood pressure. Patientreports he is noncompliant at home, so this was likely increased by primary care and response to patient noncompliance.. = Blood pressure stable on current medications. Continue monitor. //non-anion gap metabolic acidosis.possibly secondary to fluids. Continue monitor. // COPD: Chronic Respiratory Failure. Controlled. Breathing comfortably. Continue home I, [place] prn. // Tobacco Abuse: Pt counselled. -Offered NicoDerm if needed. hypokalemia.resolved.. Follow. FEN: diet per surgical service. D5 half-normal saline. // DVT Prophylaxis: SCD/Teds. patient is ambulatory.anticoagulation as per surgical service. Discharge Planning status post CT guided drainage with drain placement 07/11. -surgery 07/18 Terry Delvalle MD Jul 18, 2016 01:02
[2016-07-18] MEDS: metroNIDAZOLE 500 MG INJ 100 ML IV SCH ×4 (02:11→22:04)
[2016-07-18] MEDS: DEXTROSE 5%-LACTATED RING INJ 1,000 ML IV SCH ×2 (02:16→11:15)
[2016-07-18] MEDS: MORPHINE SULFATE 4 MG/ML INJ IV PUSH PRN (04:08)
[2016-07-18] MEDS: CIPROFLOXACIN 400 MG PREMIX 200 ML IV SCH ×2 (05:15→18:00)
[2016-07-18 06:03] LABS: BICARBONATE 20.5 MEQ/L (21.0-32.0); MAGNESIUM 1.7 MG/DL (1.5-2.5); POTASSIUM 3.4 MEQ/L (3.5-5.1)
[2016-07-18] MEDS: ATENOLOL 50 MG TAB PO SCH (07:44)
[2016-07-18 08:15] LABS: AUTOMATED NEUTROPHIL # 7.4 TH/MM3 (1.8-7.7); BASOPHIL % 0.3 % (0.0-2.0); EOSINOPHIL # 0.2 TH/MM3 (0-0.4); EOSINOPHIL % 1.6 % (0.0-4.0); HEMATOCRIT 27.9 % (39.0-51.0); HEMO FLAGS DIFF FINAL; LYMPH % 12.6 % (9.0-44.0); LYMPHOCYTE # 1.2 TH/MM3 (1.0-4.8); MEAN CELL VOLUME 88.9 FL (80.0-100.0); MEAN CORPUSCULAR HEMOGLOBIN 30.9 PG (27.0-34.0); MEAN CORPUSCULAR HGB CONC 34.8 % (32.0-36.0); MONO % 8.6 % (0.0-8.0); NEUT % 76.9 % (16.0-70.0); PLATELET COUNT 329 TH/MM3 (150-450); RED BLOOD COUNT 3.13 MIL/MM3 (4.50-5.90); WHITE BLOOD COUNT 9.7 TH/MM3 (4.0-11.0)
[2016-07-18] MEDS: FOLIC ACID 1 MG TAB PO SCH (08:32)
[2016-07-18] MEDS: SODIUM CHLORIDE 0.9% FLUSH 5 ML FLUSH FLUSH SCH (08:32)
[2016-07-18] MEDS: CYANOCOBALAMIN 1,000 MCG TAB PO SCH (08:33)
[2016-07-18] MEDS: MULTIVITAMINS/MINERALS THERAPEUTIC TAB PO SCH (08:33)
[2016-07-18] MEDS: BUDESONIDE-FORMOTEROL 160/4.5 MCG INHALER INH SCH ×2 (09:00→21:55)
[2016-07-18] MEDS ORDERED: ePHEDrine/NS 50 MG/5 ML SYR IV ONE (12:00)
[2016-07-18] MEDS ORDERED: NEOSTIGMINE 3 MG/3 ML SYR IV ONE (12:00)
[2016-07-18] MEDS ORDERED: ONDANSETRON HCL 4 MG/2 ML VIAL IV PUSH ONE (12:00)
[2016-07-18] MEDS ORDERED: PHENYLEPH/NS 1000 MCG/10 ML SYR IV ONE (12:00)
[2016-07-18] MEDS ORDERED: LACTATED RINGER'S 1000 ML INJ 1,000 ML IV ONE (12:00)
[2016-07-18] MEDS ORDERED: PROPOFOL 200 MG/20 ML AMP IV ONE (12:00)
[2016-07-18] MEDS ORDERED: BUPIVACAINE HCL PF 0.5% 30 ML VIAL ONE (14:47)
[2016-07-18] MEDS ORDERED: fentaNYL CITRATE 250 MCG/5 ML AMP ONE (14:52)
[2016-07-18] MEDS ORDERED: FAMOTIDINE 20 MG/2 ML VIAL ONE (16:03)
[2016-07-18] MEDS ORDERED: methylPREDNISolone SOD SUCC 125 MG/2 ML VIAL ONE (16:03)
[2016-07-18] MEDS ORDERED: DEXAMETHASONE SOD PHOS 4 MG/ML VIAL ONE (16:03)
[2016-07-18] MEDS ORDERED: MIDAZOLAM HCL 2 MG/2 ML VIAL ONE (16:04)
[2016-07-18] MEDS ORDERED: POTASSIUM CHLOR 10 MEQ PREMIX 100 ML IV SCH (18:30)
[2016-07-18] MEDS ORDERED: ACETAMINOPHEN 325 MG TAB PO PRN (19:30)
[2016-07-18] MEDS ORDERED: KETOROLAC TROMETHAMINE 30 MG/ML (IVP) VIAL IVP PRN (19:30)
[2016-07-18] MEDS ORDERED: Post-op Orders (for Pharmacy) MISC XX ONE (19:30)
[2016-07-18] MEDS ORDERED: NALOXONE HCL 0.4 MG/ML AMP IV PRN (19:30)
[2016-07-18] MEDS ORDERED: POTASSIUM CHLOR 20 MEQ PREMIX 100 ML IV PRN (19:30)
[2016-07-18] MEDS ORDERED: ENALAPRILAT 2.5 MG/2 ML VIAL IV PRN (19:30)
[2016-07-18] MEDS ORDERED: SODIUM CHLORIDE 0.9% FLUSH 5 ML FLUSH IVF PRN (19:30)
[2016-07-18] MEDS ORDERED: BENZOCAINE 6 MG/MENTHOL 10 MG LOZENGE SUCK-ON PRN (19:30)
[2016-07-18] MEDS ORDERED: ACETAMINOPHEN/HYDROcodone 325 MG/5 MG TAB PO PRN (19:30)
[2016-07-18] MEDS ORDERED: POTASSIUM CHLOR 40 MEQ PREMIX 100 ML IV PRN (19:30)
[2016-07-18] MEDS ORDERED: ENALAPRILAT 1.25 MG/ML VIAL IV PRN (19:30)
[2016-07-18] MEDS ORDERED: DO NOT ADM ANY ANTICOAGULANT DRUGS XX PRN (19:35)
[2016-07-18] MEDS: MORPHINE SULFATE 30 MG/30 ML PCA IV SCH (19:58)
[2016-07-18] MEDS: D5-NS + KCL 20 MEQ INJ 1,000 ML IV SCH ×2 (20:00→23:28)
[2016-07-18] MEDS ORDERED: *morphine SULFATE 8 MG/ML PERIprocedure ONLY ONE ×2 (20:09→20:22)
--- NOTE | 2016-07-18 20:10 | HHI.PR ---
Subjective Remarks late entry. Patient seen around 3 PM. Lying in bed. Says he is feeling well. He has had several large bowel movements after bowel prep. He did have some nausea vomiting last night after drinking prep, however none today. Denies any chest pain or shortness of breath. Objective Vital Signs Date Time Temp Pulse Resp B/P Pulse Ox O2 Delivery O2 Flow Rate FiO2 07/18/16 19:58 15 07/18/16 12:00 98.6 76 16 105/69 99 07/18/16 08:00 96.1 83 16 103/59 93 07/18/16 04:13 18 07/18/16 04:00 96.9 93 18 100/59 95 07/18/16 00:00 97.4 85 19 107/62 95 I/O 07/17/16 07/17/16 07/17/16 07/18/16 07/18/16 07/18/16 07:00 15:00 23:00 07:00 15:00 23:00 Intake Total 650 ml 480 ml 720 ml 0 ml Output Total 1050 ml 200 ml 340 ml 1 ml Balance -400 ml 480 ml 520 ml -340 ml -1 ml Intake Oral 480 ml 720 ml 0 ml IV Total 650 ml Output Urine Total 1000 ml 200 ml 300 ml Stool Total 1 ml Drainage Total 50 ml 40 ml # Voids 3 3 # Bowel Movements 1 3 Result Diagram: 07/18/16 0745 07/18/[address] guided drain placement to left lower quadrant diverticular abscess on 07/11. Exchange on 07/14 by IR. Objective Remarks GENERAL: patient lying in bed on right side. Appears comfortable. Alert and oriented 3. SKIN: Warm and dry. HEAD: Normocephalic. EYES: No scleral icterus. No injection or drainage. NECK: Supple, trachea midline. No JVD. CARDIOVASCULAR: Regular rate and rhythm without murmurs, gallops, or rubs. RESPIRATORY: Breath sounds equal bilaterally. No accessory muscle use. GASTROINTESTINAL: Abdomen soft. nontender. Left lower quadrant with drain in place. Draining clear brown fluid now MUSCULOSKELETAL: No cyanosis. patient does have trace edema bilateral lower caries. No discoloration. BACK: Nontender without obvious deformity. No CVA tenderness. A/P Assessment and Plan A/P: // Diverticulitis: w/ Abscess. Failed outpatient therapy w/ Cipro/Flagyl x6 days. Afebrile, no leukocytosis. S/p Blood Cultures, IV Cipro/Flagyl in ER, will follow-up cultures, continue IV Abx. IVF. -07/11 left lower quadrant drain placement. Unfortunately cultures were not obtained -07/12. Left lower quadrant drain in place. Abdominal pain much improved. Continue Cipro and Flagyl. 07/13. Drain leak. Consult IR for repair/replacement of drain. 07/14. Continues draining stool.Plan per colorectal surgery.possible resection later this week. 07/15. still with feculent output. hypokalemia. Add potassium to fluids.check magnesium. Plan per surgery. 07/16. Patient does have a little peripheral edema to getting fluids, as well as drinking. Will hold fluids for now. Restart prior to surgery. Hypokalemia resolved. colorectal plans for surgery on Thursday. patient is a chronic smoker, has COPD.Patient may likely have sleep apnea, however no history of heart disease or chest pain. Preoperative chest x-ray normal. EKG on admission with no change since 2012. 07/17.magnesium replaced. Plan for surgery 07/18. Left a.c. superficial thrombosis. heat pack applied. 07/18.status post prep. Plan for surgery today. Appreciate colorectal surgery assistance //Intra-Abdominal Abscess: [facility] Abd/Pelvis w / 10cm intra-abdominal abscess. ER physician spoke w/ Dr. Hackett and Dr. Degroot from IR. Unable to upload images on CD w/ patient. -Nothing by mouth. For procedure. Continue IV fluids. -07/11CT-guided drainage of intra-abdominal abscess, with drain placement. No cultures were obtained.. - Continue Cipro and Flagyl. Management as per colorectal surgery. Appreciate assistance. -if patient has fever, very low threshold to start Zosyn. -colorectal plans for surgery today //Abdominal Pain: Secondary to above. -Pt reluctant to take pain medication. -07/12. patient says abdominal pain is much improved after drain placement. -continues with abdominal pain controlled. // HTN: -07/12. Blood pressure slightly decreased. Suspect that patient may be more compliant with his blood pressure medication here than at home. We'll hold his losartan. -07/13. Blood pressure still low. asymptomatic.Continue monitor. Continue beta rosa. -07/15. Decrease atenolol to 50 mg dailydue to low blood pressure. Patientreports he is noncompliant at home, so this was likely increased by primary care and response to patient noncompliance.. = Blood pressure stable on current medications. Continue monitor. //non-anion gap metabolic acidosis.possibly secondary to fluids. Continue monitor. // COPD: Chronic Respiratory Failure. Controlled. Breathing comfortably. Continue home I, Emerson prn. // Tobacco Abuse: Pt counselled. -Offered NicoDerm if needed. hypokalemia. replaced. Follow. FEN: diet per surgical service. D5 half-normal saline. // DVT Prophylaxis: SCD/Teds. patient is ambulatory.anticoagulation as per surgical service. Discharge Planning status post CT guided drainage with drain placement 07/11. -surgery 07/18 Terry Delvalle MD Jul 18, 2016 20:10
[2016-07-18] MEDS: METOCLOPRAMIDE HCL 10 MG/2 ML VIAL IVS SCH (20:20)
[2016-07-18] MEDS ORDERED: *HYDROmorphone PF 1 MG VIAL PERIprocedural Use ONLY ONE (20:35)
[2016-07-18] MEDS: SODIUM CHLORIDE 0.9% FLUSH 5 ML FLUSH IVF SCH (21:55)
[2016-07-18] MEDS: PRAVASTATIN SOD 80 MG TAB PO SCH (22:00)
[2016-07-18] MEDS: PCA - TOTAL MG MORPHINE DELIVERED PER SHIFT SCH (22:00)
[2016-07-18] MEDS: ZOLPIDEM TARTRATE 5 MG TAB PO PRN (23:28)
[2016-07-19] VITALS (16 sets, daily range): BP systolic 109–142; BP diastolic 63–74; PULSE 74–115; RESP 17–20; TEMP 97.6–98.6; O2SAT 94–100
[2016-07-19 05:04] LABS: AUTOMATED NEUTROPHIL # 15.6 TH/MM3 (1.8-7.7); BASOPHIL % 0.1 % (0.0-2.0); HEMATOCRIT 28.6 % (39.0-51.0); HEMO FLAGS DIFF FINAL; LYMPH % 2.4 % (9.0-44.0); LYMPHOCYTE # 0.4 TH/MM3 (1.0-4.8); MEAN CELL VOLUME 89.5 FL (80.0-100.0); MEAN CORPUSCULAR HEMOGLOBIN 30.5 PG (27.0-34.0); MEAN CORPUSCULAR HGB CONC 34.1 % (32.0-36.0); MONO % 2.4 % (0.0-8.0); NEUT % 95.1 % (16.0-70.0); PLATELET COUNT 322 TH/MM3 (150-450); RED BLOOD COUNT 3.19 MIL/MM3 (4.50-5.90); WHITE BLOOD COUNT 16.4 TH/MM3 (4.0-11.0)
[2016-07-19 05:24] LABS: BICARBONATE 20.1 MEQ/L (21.0-32.0); POTASSIUM 3.9 MEQ/L (3.5-5.1)
[2016-07-19] MEDS: PCA - TOTAL MG MORPHINE DELIVERED PER SHIFT SCH ×3 (05:31→22:00)
[2016-07-19 06:04] LABS: CALCIUM-PROTEIN CORRECTED 8.2 MG/DL (8.5-10.1)
[2016-07-19] MEDS: CYANOCOBALAMIN 1,000 MCG TAB PO SCH (08:57)
[2016-07-19] MEDS: MULTIVITAMINS/MINERALS THERAPEUTIC TAB PO SCH (08:57)
[2016-07-19] MEDS: PANTOPRAZOLE SOD 40 MG DELAYED RELEASE TAB PO SCH (08:57)
[2016-07-19] MEDS: FOLIC ACID 1 MG TAB PO SCH (08:57)
[2016-07-19] MEDS: BUDESONIDE-FORMOTEROL 160/4.5 MCG INHALER INH SCH ×2 (08:58→20:16)
[2016-07-19] MEDS: ATENOLOL 50 MG TAB PO SCH (08:58)
[2016-07-19] MEDS: METOCLOPRAMIDE HCL 10 MG/2 ML VIAL IVS SCH ×2 (09:00→20:00)
[2016-07-19] MEDS: PANTOPRAZOLE SODIUM 40 MG VIAL IVP SCH (09:00)
[2016-07-19] MEDS: SODIUM CHLORIDE 0.9% FLUSH 5 ML FLUSH IVF SCH ×2 (09:02→19:18)
[2016-07-19] MEDS: metroNIDAZOLE 500 MG INJ 100 ML IV SCH ×2 (09:02→16:27)
--- NOTE | 2016-07-19 11:34 | HHI.PR ---
Subjective Remarks C/R Surg POD #1 afebrile, VSS UO good CARMEN min 1 stent dc'd Objective - Vital Signs Date Time Temp Pulse Resp B/P Pulse Ox O2 Delivery O2 Flow Rate FiO2 07/19/16 11:00 97.6 80 19 120/70 100 07/19/16 07:00 Room Air 07/19/16 04:00 2.00 Result Diagram: 07/19/1641907/19/16419 Objective Remarks PE alert Abd - soft, less tender, no mass, wound dry A/P Assessment and Plan Imp: Diverticulitis with lg abscess - poss perf colon cancer OOB Tx to floor Bobo Hackett MD Jul 19, 2016 11:34
[2016-07-19] MEDS: D5-NS + KCL 20 MEQ INJ 1,000 ML IV SCH (14:30)
--- NOTE | 2016-07-19 16:26 | MP ---
cc: NISREEN SHARP M.D. DATE OF SURGERY: 07/18/2016 PREOPERATIVE DIAGNOSES 1. Diverticulitis. 2. Pelvic abscess. POSTOPERATIVE DIAGNOSES 1. Diverticulitis. 2. Pelvic abscess. OPERATION PERFORMED 1. Cystoscopy. 2. Placement of ureteral catheters, bilaterally at the request of Dr. Hackett. ANESTHESIA General. SURGEON Dr. Nisreen Sharp INDICATION Dr. Hackett requested placement of ureteral catheters bilaterally at time of his abdominal surgery for treatment of a diverticular pelvic abscess. The patient denied any major urinary problems. FINDINGS Bladder interior was fairly negative. No inflammation seen anywhere. No tumors or lesions or abnormal vascularity is seen. Muscular wall showed 1+ trabeculation. The trigone was far enough away from bladder neck to access the ureteral orifices without any trauma to the bladder neck or prostate. Prostate appeared to be minimally obstructing, bilobar hyperplasia. Urethra negative, no strictures. Ureteral orifices in normal location. A #6-Kyrgyz ureteral open-ended catheter was passed freely a distance of 25 cm both right and left sides. DESCRIPTION OF PROCEDURE The patient identified himself as Flaco Mijares. He was given a general anesthetic, legs were placed in stirrups in the dorsolithotomy position. The perineum, thighs, genitalia, suprapubic areas were then prepped with Betadine. The abdomen was prepped with DuraPrep. Dr. Hackett did the draping both abdominal and on the legs for the cystoscopy. A timeout was done to correctly identify the patient and the planned procedure. Drs. Hackett and Norm then started their abdominal exploration. First cystoscopy was done using a 30 degree lens in a 20-Kyrgyz sheath passed in a retrograde fashion through the urethra and prostate into the bladder. The above findings were noted. Then a 70-degree lens was used to visualize the bladder interior and the above findings were noted. Then the 30-degree lens was then used for the remainder of the procedure. #6-Kyrgyz open-ended catheters were then passed up both the right and left ureters without any obvious abnormal resistance to a distance of 25 cm. Clear urine was seen dripping from both catheters. After the cystoscope was removed then a 16-Kyrgyz Segovia catheter was placed, balloon inflated to 10 mL. The ureteral catheters were then placed in a three-way adapter located between the Segovia catheter and the drainage bag. All catheters were dried off and then all three were taped together with Steri-Strips. There were no urological problems or complications with the procedure. Drs. Hackett and Norm then continued with their abdomen operation. MD SHERIE Resendez/BJLynette /5:19 PM /4:08 PM [place]
--- NOTE | 2016-07-19 17:09 | HHI.PR ---
Subjective Remarks The patient was trying to find a position of comfort. He has been ambulating around the room. Family at the bedside. He says he is only having popsicles and ice. He says his pain is controlled with SYSTEMS INTEGRATION ANALYST. Discussed with nursing. Objective Vitals Vital Signs Date Time Temp Pulse Resp B/P Pulse Ox O2 Delivery O2 Flow Rate FiO2 07/19/16 16:59 97.7 88 17 115/63 100 07/19/16 12:00 74 07/19/16 11:00 84 07/19/16 11:00 97.6 80 19 120/70 100 07/19/16 10:00 89 07/19/16 09:00 104 07/19/16 08:00 104 07/19/16 07:00 96 07/19/16 07:00 98 Room Air 07/19/16 07:00 98.0 97 20 142/72 98 07/19/16 06:00 103 07/19/16 05:31 20 07/19/16 05:00 105 07/19/16 04:00 99 Nasal Cannula 2.00 07/19/16 04:00 98.2 109 20 132/74 99 07/19/16 04:00 115 07/19/16 03:00 110 07/19/16 02:00 101 07/19/16 01:00 93 07/19/16 00:00 99 Nasal Cannula 2.00 07/19/16 00:00 97.7 99 18 124/64 99 07/18/16 23:00 100 07/18/16 22:00 87 07/18/16 22:00 20 07/18/16 21:15 97.5 95 20 131/82 100 07/18/16 21:15 20 07/18/16 21:15 100 Nasal Cannula 2.00 07/18/16 20:45 97.1 93 13 126/68 100 Nasal Cannula 3 07/18/16 20:30 97 14 123/76 100 Nasal Cannula 3 07/18/16 20:15 96 14 133/84 100 Nasal Cannula 3 07/18/16 20:00 90 18 138/83 99 Nasal Cannula 3 07/18/16 19:58 15 07/18/16 19:45 97 21 126/71 98 Nasal Cannula 3 07/18/16 19:30 97.5 96 20 120/79 98 Nasal Cannula 3 I/O 07/18/16 07/18/16 07/18/16 07/19/16 07/19/16 07/19/16 06:59 14:59 22:59 06:59 14:59 22:59 Intake Total 0 ml 430 ml 1900 ml 1240 ml Output Total 340 ml 1 ml 300 ml 620 ml 475 ml Balance -340 ml -1 ml 130 ml 1280 ml 765 ml Intake Oral 0 ml 240 ml 240 ml IV Total 230 ml 1660 ml 1000 ml Other 200 ml Output Urine Total 300 ml 125 ml 450 ml 250 ml Stool Total 1 ml 0 ml 25 ml Drainage Total 40 ml 170 ml 200 ml Estimated Blood Loss 100 ml Other 75 ml Result Diagram: 07/19/16 0420 07/19/16 0420 Imaging Last Impressions Chest X-Ray 07/15/16 0000 Signed Impressions: Service Date/Time: Friday, July 15, 2016 20:30 - CONCLUSION: No acute disease. Wade Hanna MD Catheter Change 07/14/16 0000 Signed Impressions: Service Date/Time: Thursday, July 14, 2016 16:02 - CONCLUSION: Uncomplicated tube exchange as above. Rudi Resendez MD Abscess Drainage CT 07/11/16 0000 Signed Impressions: Service Date/Time: Monday, July 11, 2016 14:14 - CONCLUSION: Uncomplicated CT guided drainage. Reece Elkins MD Objective Remarks GENERAL: Ambulating around the room. Alert and oriented 3. SKIN: Warm and dry. HEAD: Normocephalic. EYES: No scleral icterus. No injection or drainage. NECK: Supple, trachea midline. No JVD. CARDIOVASCULAR: Regular rate and rhythm without murmurs, gallops, or rubs. RESPIRATORY: Breath sounds equal bilaterally. No accessory muscle use. GASTROINTESTINAL: Abdomen soft. nontender. Dressings in place. Left lower quadrant with drain in place. Draining clear brown fluid now MUSCULOSKELETAL: No cyanosis. patient does have trace edema bilateral lower caries. No discoloration. BACK: Nontender without obvious deformity. No CVA tenderness. PSYCH: Mood and affect appropriate. Medications and IVs Current Medications Medications (Trade) Dose Ordered Sig/Cori Route Start Time Stop Time Status Last Admin (Zofran Inj) 4 mg Q6H PRN IVP 07/10/16 19:45 07/17/16 17:34 (Tylenol) 650 mg Q6H PRN PO 07/10/16 19:45 (Symbicort 160-4.5 Inh) 2 puff Q12HR INH 07/10/16 21:00 07/19/16 08:58 (Vitamin B12) 500 mcg DAILY PO 07/11/16 09:00 07/19/16 08:57 (Folate) 1 mg DAILY PO 07/11/16 09:00 07/19/16 08:57 (Cozaar) 100 mg DAILY PO 07/11/16 09:00 Hold 07/12/16 09:24 (Theragran M Tab) 1 tab DAILY PO 07/11/16 09:00 07/19/16 08:57 (Pravachol) 80 mg HS PO 07/10/16 21:00 07/18/16 22:00 (Morphine Inj) 2 mg Q3H PRN IV PUSH 07/10/16 20:00 07/18/16 04:08 (Ambien) 5 mg HS PRN PO 07/10/16 20:00 07/18/16 23:28 (Ativan Inj) 1 mg Q3H PRN IV PUSH 07/10/16 20:00 07/17/16 19:38 Atenolol 50 mg 50 mg DAILY PO 07/15/16 09:00 07/19/16 08:58 (D5-NS + KCl 20 Meq Inj) 1,000 ml @ 100 mls/hr Q10H IV 07/18/16 19:27 07/19/16 14:30 (NS Flush) 2 ml UNSCH PRN IVF 07/18/16 19:30 (NS Flush) 2 ml BID IVF 07/18/16 21:00 07/19/16 09:02 ([place] 5-325 Mg) 1 tab Q4H PRN PO 07/18/16 19:30 ([place] 5-325 Mg) 2 tab Q4H PRN PO 07/18/16 19:30 (Toradol Inj) 30 mg Q6H PRN IVP 07/18/16 19:30 07/21/16 19:29 07/18/16 20:15 (Tylenol) 650 mg Q4H PRN PO 07/18/16 19:30 (Protonix Inj) 40 mg DAILY IVP 07/19/16 09:00 (Protonix) 40 mg DAILY PO 07/19/16 09:00 07/19/16 08:57 (Reglan Inj) 10 mg Q12HR IVS 07/18/16 21:00 07/19/16 09:00 (Vasotec Inj) 1.25 mg Q4H PRN IV 07/18/16 19:30 (Vasotec Inj) 2.5 mg Q6H PRN IV 07/18/16 19:30 Benzocaine/ Menthol 1 lozenge 1 lozenge UNSCH PRN SUCK-ON 07/18/16 19:30 Potassium Chloride 100 ml @ 50 mls/hr UNSCH PRN IV 07/18/16 19:30 (KCl 40 Meq Premix Inj) 100 ml @ 25 mls/hr UNSCH PRN IV 07/18/16 19:30 (Narcan Inj) 0.4 mg UNSCH PRN IV 07/18/16 19:30 (Morphine 1 Mg/ ml SYSTEMS INTEGRATION ANALYST) 30 mg UNSCH IV 07/18/16 19:30 07/18/16 19:58 SYSTEMS INTEGRATION ANALYST Dosage Infused (Pha) 1 Q8HR .XX 07/18/16 22:00 07/19/16 14:00 Miscellaneous Information ALL NURSING DEPARTME... UNSCH PRN XX 07/18/16 19:35 07/19/16 19:34 Cefazolin Sodium 1000 mg/Sodium Chloride 100 ml @ 200 mls/hr Q8H IV 07/19/16 18:00 (Flagyl 500 Mg Inj) 100 ml @ 100 mls/hr Q8H IV 07/19/16 17:00 07/19/16 16:27 A/P Problem List: (1) Diverticulitis of intestine with abscess ICD Code: K57.80 Status: Acute (2) Intra-abdominal abscess ICD Code: K65.1 Status: Acute (3) Abdominal pain ICD Code: R10.9 Status: Acute (4) Failure of outpatient treatment ICD Code: Z78.9 Status: Acute (5) HTN (hypertension) ICD Code: I10 Status: Acute (6) COPD (chronic obstructive pulmonary disease) ICD Code: J44.9 Status: Acute (7) Tobacco abuse ICD Code: Z72.0 Status: Acute Assessment and Plan //Intra-Abdominal Abscess: [facility]/Pelvis w / 10cm intra-abdominal abscess. ER physician spoke w/ Dr. Hackett and Dr. Degroot from IR. S/p surgery 07/18. -Nothing by mouth. Continue IV fluids. Diet per CRS. -07/11CT-guided drainage of intra-abdominal abscess, with drain placement. No cultures were obtained. - Continue Cipro and Flagyl. Management as per colorectal surgery. Appreciate assistance. - follow up with CRS. - pain control with a bowel regimen. HTN Stable. - continue meds. Non-anion gap metabolic acidosis Possibly secondary to fluids. - Continue to monitor. Tobacco Abuse Pt counselled. - Offered NicoDerm if needed. // DVT Prophylaxis: SCD/Teds. patient is ambulatory.anticoagulation as per surgical service. Discharge Planning Per colorectal surgery. Problem Qualifiers (1) Diverticulitis of intestine with abscess: Qualified Code: K57.20 - Diverticulitis of large intestine with abscess without bleeding (2) Abdominal pain: Qualified Code: R10.32 - Left lower quadrant pain Narciso Ugarte DO Jul 19, 2016 17:09
[2016-07-19] MEDS: PRAVASTATIN SOD 80 MG TAB PO SCH (20:00)
[2016-07-19] MEDS: MORPHINE SULFATE 30 MG/30 ML PCA IV SCH (20:03)
[2016-07-19] MEDS: ZOLPIDEM TARTRATE 5 MG TAB PO PRN (21:49)
[2016-07-19] MEDS: MORPHINE SULFATE 4 MG/ML INJ IV PUSH PRN (21:50)
[2016-07-20] VITALS: BP 114/72; PULSE 92; RESP 19; TEMP 98.6; O2SAT 96
[2016-07-20] MEDS: metroNIDAZOLE 500 MG INJ 100 ML IV SCH ×3 (00:29→16:31)
[2016-07-20] MEDS: D5-NS + KCL 20 MEQ INJ 1,000 ML IV SCH ×4 (00:29→22:38)
[2016-07-20] MEDS: MORPHINE SULFATE 4 MG/ML INJ IV PUSH PRN (05:04)
[2016-07-20] MEDS: PCA - TOTAL MG MORPHINE DELIVERED PER SHIFT SCH ×3 (05:47→22:00)
[2016-07-20] MEDS: PANTOPRAZOLE SODIUM 40 MG VIAL IVP SCH (07:09)
[2016-07-20] MEDS: CYANOCOBALAMIN 1,000 MCG TAB PO SCH (07:48)
[2016-07-20] MEDS: FOLIC ACID 1 MG TAB PO SCH (07:49)
[2016-07-20] MEDS: ATENOLOL 50 MG TAB PO SCH (07:49)
[2016-07-20] MEDS: MULTIVITAMINS/MINERALS THERAPEUTIC TAB PO SCH (07:49)
[2016-07-20] MEDS: PANTOPRAZOLE SOD 40 MG DELAYED RELEASE TAB PO SCH (07:49)
[2016-07-20] MEDS: METOCLOPRAMIDE HCL 10 MG/2 ML VIAL IVS SCH ×2 (07:50→19:51)
[2016-07-20] MEDS: SODIUM CHLORIDE 0.9% FLUSH 5 ML FLUSH IVF SCH ×2 (07:51→19:50)
[2016-07-20] MEDS: BUDESONIDE-FORMOTEROL 160/4.5 MCG INHALER INH SCH ×2 (07:51→22:37)
[2016-07-20 08:00] VITALS: BP 91/50; PULSE 104; RESP 17; TEMP 96.3; O2SAT 93
--- NOTE | 2016-07-20 09:22 | HHI.PR ---
Subjective Remarks The patient was upset that his left arm got swollen. He wanted warm compresses. He also wanted two popsicles. His family was at the bedside. The patient said that his pain was worse than yesterday. He couldn't get out of bed because of pain. He wants to eat something. He said he didn't get much sleep last night. Discussed with nursing. Objective Vitals Vital Signs Date Time Temp Pulse Resp B/P Pulse Ox O2 Delivery O2 Flow Rate FiO2 07/20/16 08:00 96.3 104 17 91/50 93 07/20/16 07:50 Room Air 07/20/16 00:00 98.6 92 19 114/72 96 07/19/16 23:19 98.6 78 20 115/70 95 07/19/16 22:00 Room Air 07/19/16 20:00 97.6 90 20 109/63 94 07/19/16 16:59 97.7 88 17 115/63 100 07/19/16 12:00 74 07/19/16 11:00 84 07/19/16 11:00 97.6 80 19 120/70 100 07/19/16 10:00 89 I/O 07/19/16 07/19/16 07/19/16 07/20/16 07/20/16 07/20/16 07:00 15:00 23:00 07:00 15:00 23:00 Intake Total 1900 ml 2040 ml 300 ml Output Total 620 ml 695 ml 280 ml Balance 1280 ml 1345 ml 20 ml Intake Oral 240 ml 240 ml 0 ml IV Total 1660 ml 1800 ml 300 ml Output Urine Total 450 ml 450 ml 250 ml Stool Total 0 ml 25 ml Drainage Total 170 ml 220 ml 30 ml # Bowel Movements 0 0 Result Diagram: 07/19/16 0420 07/19/16 0420 Imaging Last Impressions Chest X-Ray 07/15/16 0000 Signed Impressions: Service Date/Time: Friday, July 15, 2016 20:30 - CONCLUSION: No acute disease. Wade Hanna MD Catheter Change 07/14/16 0000 Signed Impressions: Service Date/Time: Thursday, July 14, 2016 16:02 - CONCLUSION: Uncomplicated tube exchange as above. Rudi Resendez MD Abscess Drainage CT 07/11/16 0000 Signed Impressions: Service Date/Time: Monday, July 11, 2016 14:14 - CONCLUSION: Uncomplicated CT guided drainage. Reece Elkins MD Objective Remarks GENERAL: Alert and oriented 3. SKIN: Warm and dry. HEAD: Normocephalic. EYES: No scleral icterus. No injection or drainage. NECK: Supple, trachea midline. No JVD. CARDIOVASCULAR: Tachycardic without murmurs, gallops, or rubs. RESPIRATORY: Breath sounds equal bilaterally. No accessory muscle use. GASTROINTESTINAL: Abdomen soft. Tender to palpation. Dressings in place. Left lower quadrant with drain in place. Draining clear brown fluid now MUSCULOSKELETAL: No cyanosis. Patient does have trace edema bilateral lower caries. No discoloration. BACK: Nontender without obvious deformity. No CVA tenderness. PSYCH: Slightly agitated. Medications and IVs Current Medications Medications (Trade) Dose Ordered Sig/Cori Route Start Time Stop Time Status Last Admin (Zofran Inj) 4 mg Q6H PRN IVP 07/10/16 19:45 07/17/16 17:34 (Tylenol) 650 mg Q6H PRN PO 07/10/16 19:45 (Symbicort 160-4.5 Inh) 2 puff Q12HR INH 07/10/16 21:00 07/20/16 07:51 (Vitamin B12) 500 mcg DAILY PO 07/11/16 09:00 07/20/16 07:48 (Folate) 1 mg DAILY PO 07/11/16 09:00 07/20/16 07:49 (Cozaar) 100 mg DAILY PO 07/11/16 09:00 Hold 07/12/16 09:24 (Theragran M Tab) 1 tab DAILY PO 07/11/16 09:00 07/20/16 07:49 (Pravachol) 80 mg HS PO 07/10/16 21:00 07/19/16 20:00 (Morphine Inj) 2 mg Q3H PRN IV PUSH 07/10/16 20:00 07/20/16 05:04 (Ambien) 5 mg HS PRN PO 07/10/16 20:00 07/19/16 21:49 (Ativan Inj) 1 mg Q3H PRN IV PUSH 07/10/16 20:00 07/17/16 19:38 Atenolol 50 mg 50 mg DAILY PO 07/15/16 09:00 07/20/16 07:49 (D5-NS + KCl 20 Meq Inj) 1,000 ml @ 100 mls/hr Q10H IV 07/18/16 19:27 07/20/16 07:52 (NS Flush) 2 ml UNSCH PRN IVF 07/18/16 19:30 (NS Flush) 2 ml BID IVF 07/18/16 21:00 07/20/16 07:51 ([place] 5-325 Mg) 1 tab Q4H PRN PO 07/18/16 19:30 ([place] 5-325 Mg) 2 tab Q4H PRN PO 07/18/16 19:30 (Toradol Inj) 30 mg Q6H PRN IVP 07/18/16 19:30 07/21/16 19:29 07/18/16 20:15 (Tylenol) 650 mg Q4H PRN PO 07/18/16 19:30 (Protonix Inj) 40 mg DAILY IVP 07/19/16 09:00 (Protonix) 40 mg DAILY PO 07/19/16 09:00 07/20/16 07:49 (Reglan Inj) 10 mg Q12HR IVS 07/18/16 21:00 07/20/16 07:50 (Vasotec Inj) 1.25 mg Q4H PRN IV 07/18/16 19:30 (Vasotec Inj) 2.5 mg Q6H PRN IV 07/18/16 19:30 Benzocaine/ Menthol 1 lozenge 1 lozenge UNSCH PRN SUCK-ON 07/18/16 19:30 Potassium Chloride 100 ml @ 50 mls/hr UNSCH PRN IV 07/18/16 19:30 (KCl 40 Meq Premix Inj) 100 ml @ 25 mls/hr UNSCH PRN IV 07/18/16 19:30 (Narcan Inj) 0.4 mg UNSCH PRN IV 07/18/16 19:30 (Morphine 1 Mg/ ml NERVE SPECIALIST) 30 mg UNSCH IV 07/18/16 19:30 07/19/16 20:03 NERVE SPECIALIST Dosage Infused (Pha) 1 1 Q8HR .XX 07/18/16 22:00 07/20/16 05:47 Cefazolin Sodium 1000 mg/Sodium Chloride 100 ml @ 200 mls/hr Q8H IV 07/19/16 18:00 07/20/16 07:48 (Flagyl 500 Mg Inj) 100 ml @ 100 mls/hr Q8H IV 07/19/16 17:00 07/20/16 07:50 A/P Problem List: (1) Diverticulitis of intestine with abscess ICD Code: K57.80 Status: Acute (2) Intra-abdominal abscess ICD Code: K65.1 Status: Acute (3) Abdominal pain ICD Code: R10.9 Status: Acute (4) Failure of outpatient treatment ICD Code: Z78.9 Status: Acute (5) HTN (hypertension) ICD Code: I10 Status: Acute (6) COPD (chronic obstructive pulmonary disease) ICD Code: J44.9 Status: Acute (7) Tobacco abuse ICD Code: Z72.0 Status: Acute Assessment and Plan Intra-Abdominal abscess Referred to ER by [facility] for outpatient CT Abd/Pelvis w/ 10cm intra-abdominal abscess. ER physician spoke w/ Dr. Hackett and Dr. Degroot from . 07/11CT- guided drainage of intra-abdominal abscess, with drain placement. S/p surgery 07/18. - Nothing by mouth. Continue IV fluids. Diet per CRS. - Continue Cipro and Flagyl. Management as per colorectal surgery. Appreciate assistance. - follow up with CRS. - pain control with a bowel regimen. - antibiotics per surgery. Hyperglycemia The pt does not appear to have a history of diabetes. May be a stress reaction as also has leukocytosis. - check HgbA1c. - insulin sliding scale. Left arm edema S/t IV infiltration. - keep arm elevated. - warm compresses. Leukocytosis May be a stress reaction. Afebrile. Blood cultures negative. - check UA, CXR. - follow CBC. HTN Stable. - continue atenolol. Hold losartan. Tobacco Abuse Pt counselled. - Offered NicoDerm if needed. DVT Prophylaxis: SCD/Teds. patient is ambulatory.anticoagulation as per surgical service. Discharge Planning Per colorectal surgery. Problem Qualifiers (1) Diverticulitis of intestine with abscess: Qualified Code: K57.20 - Diverticulitis of large intestine with abscess without bleeding (2) Abdominal pain: Qualified Code: R10.32 - Left lower quadrant pain Narciso Ugarte DO Jul 20, 2016 09:22
--- NOTE | 2016-07-20 09:55 | RADRPT ---
EXAM DATE/TIME: 07/20/2016 09:37 [facility] COMPARISON: CHEST PA & LAT, July 15, 2016, 20:30. CHEST SINGLE AP, April 20, 2013, 9:16. INDICATIONS : Short of breath evaluate for pnemonia. MEDICAL HISTORY : Hypertension. Chronic obstructive pulmonary disease. SURGICAL HISTORY : None. ENCOUNTER: Subsequent ACUITY: 4 - 6 days PAIN SCORE: 0/10 LOCATION: Bilateral chest FINDINGS: A single view of the chest demonstrates the lungs to be symmetrically aerated without evidence of mas s, infiltrate or effusion. The cardiomediastinal contours are unremarkable. Osseous structures are intact.CONCLUSION: No acute disease. Narciso Yu MD on July 20, 2016 at 9:53 Board Certified Radiologist. This report was verified electronically.
--- NOTE | 2016-07-20 10:25 | HHI.PR ---
Subjective Remarks C/R Surg POD #2 afebrile, VSS UO good CARMEN min all stents dc'd Objective - Vital Signs Date Time Temp Pulse Resp B/P Pulse Ox O2 Delivery O2 Flow Rate FiO2 07/20/16 08:00 96.3 104 17 91/50 93 07/20/16 07:50 Room Air 07/19/16 04:00 2.00 Result Diagram: 07/19/1641907/19/16419 Objective Remarks PE alert Abd - soft, less tender, no mass, wound dry stoma functioning A/P Assessment and Plan Imp: Diverticulitis with lg abscess - poss perf colon cancer OOB/PT elevate LT arm, vanco, heparin start PO Bobo Hackett MD Jul 20, 2016 10:25
[2016-07-20 10:45] LABS: BACTERIA, URINE RARE /hpf; BLOOD, URINE MOD (NEG); GLUCOSE,URINE NEG (NEG); KETONE, URINE NEG (NEG); MUCUS URINE MOD /lpf (OCC); NITRITE,URINE NEG (NEG); SQUAMOUS EPITHELIAL CELL URINE 1 /hpf (0-5)
[2016-07-20 10:46] LABS: COMMENT (UR) CATH-CULTURE IND; CULTURE IF INDICATED CATH CULTURE IND; URINE COLOR LIGHT-RED (YELLW/STRAW)
[2016-07-20] MEDS: FUROSEMIDE 20 MG/2 ML VIAL IV PUSH SCH ×2 (10:49→19:50)
[2016-07-20] MEDS: HEPARIN SODIUM - SQ 10,000 UNITS/ML VIAL SQ SCH ×2 (10:51→19:52)
[2016-07-20] MEDS: INSULIN ASPART SUPPLEMENTAL SCALE SQ SCH ×3 (10:56→21:00)
--- NOTE | 2016-07-20 11:33 | MP ---
cc: JEAN GANDARA M.D. DATE OF SURGERY: 07/18/16 PREOPERATIVE DIAGNOSIS: Perforated diverticulitis with abscess. PROCEDURE: Exploratory laparotomy with proctosigmoidectomy, low pelvic anastomosis, diverting ileostomy, on-table bowel prep. 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 SURGEON: Dr. Gandara. HOG MAN: Dr. Reece Zheng. PROCEDURE: The patient was placed in supine position. After adequate general anesthesia, his legs were placed in universal stirrups and supported appropriately. The abdomen and perineum were then prepped with Betadine solution and draped in usual sterile fashion. With Dr. Zheng's assistance the abdomen was opened through an infraumbilical transverse incision dividing the rectus muscles with electrocautery. Exploration revealed a segment of proximal sigmoid that was very hard and obstructing stuck down to the left pelvic sidewall at the site of the previous drained abscess. Proximal colon was quite distended, softly full of fluid and air. No other obstructions were noted. The small bowel was run from the ligament of Treitz down to the ileocecal valve and felt to be pretty unremarkable. The liver and gallbladder were normal. Stomach and duodenum were normal. Great vessels were of normal caliber and slightly calcified. First the sigmoid colon was mobilized medially by dividing along the white line of Toldt. The left ureter was identified and carefully preserved. Dissection then proceeded down into the pelvis getting into the inflammatory rind in the region of the abscess. Dissected off the pelvic sidewall and plane developed along with presacral space identifying the ureter and removing it from the inflammatory process. The testicular vessels were also and inflammatory process finally elevated up with the specimen. The presacral space was then entered, opening up the right peritoneum and dissecting off down to the tip of the coccyx. The pedicle for the superior hemorrhoidal vessels identified and divided between Kellys obtaining hemostasis with Vicryl ties. The left colic vessels were similarly divided and ligated. After full mobilization a point in the proximal rectum was chosen for the distal transection margin and the mesorectum taken with electrocautery. The bowel finally divided using a TA 60 stapler and a Wilmer clamp. Next, the bowel was mobilized off the side of the patient an enterotomy made allowing the colon to decompress into a large basin. Several liters of saline were then used to continue and finish the on-table bowel prep. After completion the bowel was sized to reach the rectal pouch without tension and with good blood supply dividing the marginal artery at the appropriate point and the bowel divided between a pursestring suture device and a Wilmer clamp removing the specimen. The specimen was opened on the back table and it did appear that the perforation was most likely a colon cancer and not diverticulitis. Dr. Zheng inserted the EEA stapling instrument transanally under direct vision, it was brought up to the end of the rectal pouch and the trocar advanced. The stapler was then reassembled, the bowel aligned properly the staple closed and fired upon withdrawal, two complete doughnuts of tissue was seen. Gentle insufflation confirmed an airtight anastomosis. Next, the abscess site was curetted and debrided of all gross inflammatory rind. It is unclear whether this was residual tumor or just inflammatory fibrosis. At completion the cavity did appear to be quite clean in the base was fulgurated for hemostasis. A loop of distal ileum was chosen for the diverting ileostomy and avascular plane created in the mesentery. Circular stab wound was created in the right upper quadrant. The loop brought up through the circular stab wound without tension and with good blood supply. The abdomen was then irrigated copiously with normal saline. Adequate hemostasis achieved at all sites. Juarez-Dotson drain placed down into the presacral space and brought up through a stab wound in the right lower quadrant secured to the skin with a nylon suture. Transverse incision was then closed anatomically in two layers using #1 PDS sutures to reapproximate the respective fascial layers. The subcu tissues irrigated copiously and the skin closed with a row of surgical nino. At the previous drain site, elliptical incision was made incising the inflammatory tissue from the skin and subcu tissues. The area was irrigated and packed with a 4x4 gauze. Sterile dressing of telfa and gauze applied. Finally the distal end of the ileostomy closed with a TA-60 stapler. The proximal end matured in the usual Shweta fashion by placing a row of interrupted chromic catgut sutures around the circumference. At completion the stoma did appear to be viable and was patent through the fascial level. Sterile ileostomy appliance fitted over the new stoma. The patient tolerated the procedure quite well and was brought to recovery room in stable condition. Sponge, needle counts were correct at the end of the procedure. MD COBY Moreira/RAFA /10:59 AM /11:17 AM
[2016-07-20] MEDS: VANCOMYCIN INJ 1,250 MG in SODIUM CHLOR 0.9% 250 ML INJ 250 ML IV SCH (11:45)
[2016-07-20 12:00] VITALS: BP 104/60; PULSE 95; RESP 17; TEMP 98.5; O2SAT 93
[2016-07-20 16:00] VITALS: BP_SYST 110; BP_SYST 120; BP_DIAS 60; BP_DIAS 65; PULSE 73; PULSE 74; RESP 17; TEMP 95.4; TEMP 98.3; O2SAT 92; O2SAT 94
[2016-07-20] MEDS: PRAVASTATIN SOD 80 MG TAB PO SCH (19:51)
[2016-07-20 20:00] VITALS: BP 107/59; PULSE 88; RESP 18; TEMP 98.4; O2SAT 98
[2016-07-20] MEDS: MORPHINE SULFATE 30 MG/30 ML PCA IV SCH (20:00)
[2016-07-21] VITALS: BP 120/62; PULSE 78; RESP 18; TEMP 98.5; O2SAT 95
[2016-07-21] MEDS: metroNIDAZOLE 500 MG INJ 100 ML IV SCH ×3 (00:24→17:36)
[2016-07-21] MEDS: VANCOMYCIN INJ 1,250 MG in SODIUM CHLOR 0.9% 250 ML INJ 250 ML IV SCH ×3 (00:24→23:38)
[2016-07-21 04:00] VITALS: BP 101/61; PULSE 55; RESP 19; TEMP 96; O2SAT 97
[2016-07-21] MEDS: INSULIN ASPART SUPPLEMENTAL SCALE SQ SCH ×4 (04:59→21:00)
[2016-07-21] MEDS: PCA - TOTAL MG MORPHINE DELIVERED PER SHIFT SCH ×3 (04:59→22:00)
[2016-07-21 07:04] LABS: HEMATOCRIT 26.7 % (39.0-51.0); MEAN CELL VOLUME 89.8 FL (80.0-100.0); MEAN CORPUSCULAR HGB CONC 33.4 % (32.0-36.0); PLATELET COUNT 358 TH/MM3 (150-450); RED BLOOD COUNT 2.97 MIL/MM3 (4.50-5.90); RED CELL DISTRIBUTION WIDTH 16.5 % (11.6-17.2); REVIEW FLAG FINAL; WHITE BLOOD COUNT 20.4 TH/MM3 (4.0-11.0)
[2016-07-21 07:50] LABS: BICARBONATE 20.8 MEQ/L (21.0-32.0); MAGNESIUM 1.5 MG/DL (1.5-2.5); POTASSIUM 3.6 MEQ/L (3.5-5.1)
[2016-07-21 08:00] VITALS: BP 97/55; PULSE 62; RESP 19; TEMP 98.1; O2SAT 96
[2016-07-21] MEDS: MULTIVITAMINS/MINERALS THERAPEUTIC TAB PO SCH (08:48)
[2016-07-21] MEDS: PANTOPRAZOLE SOD 40 MG DELAYED RELEASE TAB PO SCH (08:49)
[2016-07-21] MEDS: FOLIC ACID 1 MG TAB PO SCH (08:49)
[2016-07-21] MEDS: CYANOCOBALAMIN 1,000 MCG TAB PO SCH (08:50)
[2016-07-21] MEDS: ATENOLOL 50 MG TAB PO SCH (08:50)
[2016-07-21] MEDS: HEPARIN SODIUM - SQ 10,000 UNITS/ML VIAL SQ SCH ×2 (08:52→19:59)
[2016-07-21] MEDS: FUROSEMIDE 20 MG/2 ML VIAL IV PUSH SCH ×2 (08:53→19:59)
[2016-07-21] MEDS: METOCLOPRAMIDE HCL 10 MG/2 ML VIAL IVS SCH ×2 (08:53→19:59)
[2016-07-21] MEDS: SODIUM CHLORIDE 0.9% FLUSH 5 ML FLUSH IVF SCH (08:54)
[2016-07-21] MEDS: PANTOPRAZOLE SODIUM 40 MG VIAL IVP SCH (08:54)
[2016-07-21] MEDS: BUDESONIDE-FORMOTEROL 160/4.5 MCG INHALER INH SCH ×2 (08:54→20:00)
[2016-07-21] MEDS: D5-NS + KCL 20 MEQ INJ 1,000 ML IV SCH ×2 (10:12→22:42)
[2016-07-21] MEDS ORDERED: ADULT - PICC FLUSH PRN FOR HEPARIN ALLERGY OR HIT DIAGNOSIS IVF (10:15)
--- NOTE | 2016-07-21 11:06 | RADRPT ---
EXAM DATE/TIME: 07/21/2016 10:55 [facility] COMPARISON: CHEST SINGLE AP, July 20, 2016, 9:37. INDICATIONS : PICC line placement. MEDICAL HISTORY : None. SURGICAL HISTORY : None. ENCOUNTER: Initial ACUITY: 1 day PAIN SCORE: 5/10 LOCATION: Bilateral chest FINDINGS: A single view of the chest demonstrates the lungs to be symmetrically aerated without evidence of mas s, infiltrate or effusion. The cardiomediastinal contours are unremarkable. Osseous structures are intact. CONCLUSION: No acute disease. Right-sided PICC line with tip in the caval atrial junction. Wade Hanna MD on July 21, 2016 at 11:04 Board Certified Radiologist. This report was verified electronically.
[2016-07-21 11:50] VITALS: BP 110/64; PULSE 76; RESP 18; TEMP 97.6; O2SAT 95
[2016-07-21 12:23] LABS: HEMOGLOBIN A1a 1.3 %; HEMOGLOBIN A1b 1.7 %; HEMOGLOBIN Ao 82.5 %; HEMOGLOBIN LA1C 2.5 %; HEMOGLOBIN P3 4.5 %
[2016-07-21] MEDS: [UNRECOGNIZED DRUG - REMARK] IVF SCH ×2 (14:00→21:52)
--- NOTE | 2016-07-21 14:37 | HHI.IDPN ---
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 Vital Signs Date Time Temp Pulse Resp B/P Pulse Ox O2 Delivery O2 Flow Rate FiO2 07/21/16 14:00 16 07/21/16 11:50 97.6 76 18 110/64 95 07/21/16 08:00 98.1 62 19 97/55 96 07/21/16 04:59 12 07/21/16 04:00 96.0 55 19 101/61 97 07/21/16 00:00 98.5 78 18 120/62 95 07/20/16 22:00 10 07/20/16 20:00 98.4 88 18 107/59 98 07/20/16 20:00 12 07/20/16 16:00 98.3 74 17 120/65 92 07/20/16 16:00 95.4 73 17 110/60 94 07/20/16 16:00 98.3 74 17 120/65 92 07/20/16 07/20/16 07/21/16 14:59 22:59 06:59 Intake Total 768 ml 534 ml 736 ml Output Total 670 ml 1000 ml 450 ml Balance 98 ml -466 ml 286 ml Intake Oral 450 ml 120 ml 120 ml IV Total 318 ml 414 ml 616 ml Output Urine Total 650 ml 1000 ml 450 ml Drainage Total 20 ml 0 ml # Bowel Movements 1 0 0 . Laboratory Tests Test 07/21/16 06:01 White Blood Count 20.4 TH/MM3 Red Blood Count 2.97 MIL/MM3 Hemoglobin 8.9 GM/DL Hematocrit 26.7 % Mean Corpuscular Volume 89.8 FL Mean Corpuscular Hemoglobin 30.0 PG Mean Corpuscular Hemoglobin 33.4 % Concent Red Cell Distribution Width 16.5 % Platelet Count 358 TH/MM3 Mean Platelet Volume 7.8 FL Laboratory Tests Test 07/21/16 06:01 Sodium Level 135 MEQ/L Potassium Level 3.6 MEQ/L Chloride Level 105 MEQ/L Carbon Dioxide Level 20.8 MEQ/L Anion Gap 9 MEQ/L Blood Urea Nitrogen 13 MG/DL Creatinine 0.98 MG/DL Estimat Glomerular Filtration 77 ML/MIN Rate Random Glucose 112 MG/DL Hemoglobin A1c 6.5 % Calcium Level 7.9 MG/DL Phosphorus Level 2.6 MG/DL Magnesium Level 1.5 MG/DL Microbiology Date/Time Procedure Status Source Growth 07/20/16 10:15 Urine Culture - Preliminary Resulted Urine Clean Catch NO GROWTH IN 24 HOURS. Imaging Last Impressions Chest X-Ray 07/21/16 0000 Signed Impressions: Service Date/Time: Thursday, July 21, 2016 10:55 - CONCLUSION: No acute disease. Right-sided PICC line with tip in the caval atrial junction. Wade Hanna MD Catheter Change 07/14/16 0000 Signed Impressions: Service Date/Time: Thursday, July 14, 2016 16:02 - CONCLUSION: Uncomplicated tube exchange as above. Rudi Resendez MD Abscess Drainage CT 07/11/16 0000 Signed Impressions: Service Date/Time: Monday, July 11, 2016 14:14 - CONCLUSION: Uncomplicated CT guided drainage. Reece Elkins MD Physical Exam CONSTITUTIONAL/GENERAL: This is an adequately nourished patient, in no apparent distress. SKIN: No jaundice, rashes, or lesions.Skin temperature appropriate. Not diaphoretic. EYESNo scleral icterus. No injection or drainage. Fundi not examined. ENT: Oral mucosae without visible erythema, exudates, masses, or lesions. Poor dentition CARDIOVASCULAR: Regular rate and rhythm without murmurs, gallops, or rubs. No JVD. . RESPIRATORY/CHEST: Symmetric, unlabored respirations. Clear to auscultation. Breath sounds equal bilaterally. No wheezes, rales, or rhonchi. GASTROINTESTINAL: Abdomen soft, + tender without guarding or rebound mildly distended. Stoamain place RLQ with small amount of liquid brown sttol low transverse incision clan and dry CARMEN in place LLQ with serosang dc No hepato-splenomegaly, or palpable masses. No guarding. Bowel sounds present. : no bladder distension martinez in place with cloudy olga urine MUSCULOSKELETAL: Extremities without clubbing, cyanosis, or edema. No joint tenderness or effusion noted. No calf tenderness. No mottling or clubbing. NEUROLOGICAL: Awake and alert. Motor and sensory grossly within normal limits. Follows commands. Normal speech. Moves all extremities. PSYCHIATRIC: No obvious anxiety/depression. no apparent hallucinations or other psychotic thought process. Assessment & Plan Remarks Intraabdominal abscess 2/2 probable colon ca sp percutaneous drainage sp resection - path P New leukocytosis - fu WBC REC's: fu UA, C+S cont IV abx: flagy,, cipro cont vancomycin for now agree with plan for surgery Kassandra Granados MD Jul 21, 2016 14:37
[2016-07-21 16:00] VITALS: BP 111/56; PULSE 70; RESP 20; TEMP 98.4; O2SAT 98
[2016-07-21] MEDS: CIPROFLOXACIN 400 MG PREMIX 200 ML IV SCH (16:23)
--- NOTE | 2016-07-21 17:25 | HHI.PR ---
Subjective Remarks The patient said he feels 5% better then yesterday. He is waiting for the ultrasound of his left arm. He says he is happy he has a PICC line. and nursing at the bedside. Objective Vitals Vital Signs Date Time Temp Pulse Resp B/P Pulse Ox O2 Delivery O2 Flow Rate FiO2 07/21/16 16:00 98.4 70 20 111/56 98 07/21/16 14:00 16 07/21/16 11:50 97.6 76 18 110/64 95 07/21/16 08:00 98.1 62 19 97/55 96 07/21/16 04:59 12 07/21/16 04:00 96.0 55 19 101/61 97 07/21/16 00:00 98.5 78 18 120/62 95 07/20/16 22:00 10 07/20/16 20:00 98.4 88 18 107/59 98 07/20/16 20:00 12 I/O 07/20/16 07/20/16 07/20/16 07/21/16 07/21/16 07/21/16 07:00 15:00 23:00 07:00 15:00 23:00 Intake Total 300 ml 768 ml 534 ml 736 ml 1081 ml Output Total 280 ml 670 ml 1000 ml 450 ml 1635 ml Balance 20 ml 98 ml -466 ml 286 ml -554 ml Intake Oral 0 ml 450 ml 120 ml 120 ml 600 ml IV Total 300 ml 318 ml 414 ml 616 ml 481 ml Output Urine Total 250 ml 650 ml 1000 ml 450 ml 1625 ml Drainage Total 30 ml 20 ml 0 ml 10 ml # Bowel Movements 0 1 0 0 0 Result Diagram: 07/21/16 0601 07/21/16 0601 Imaging Last Impressions Chest X-Ray 07/21/16 0000 Signed Impressions: Service Date/Time: Thursday, July 21, 2016 10:55 - CONCLUSION: No acute disease. Right-sided PICC line with tip in the caval atrial junction. Wade Hanna MD Catheter Change 07/14/16 0000 Signed Impressions: Service Date/Time: Thursday, July 14, 2016 16:02 - CONCLUSION: Uncomplicated tube exchange as above. Rudi Resendez MD Abscess Drainage CT 07/11/16 0000 Signed Impressions: Service Date/Time: Monday, July 11, 2016 14:14 - CONCLUSION: Uncomplicated CT guided drainage. Reece Elkins MD Objective Remarks GENERAL: Alert and oriented 3. SKIN: Warm and dry. HEAD: Normocephalic, atraumatic. EYES: No scleral icterus. No injection or drainage. NECK: Supple, trachea midline. No JVD. CARDIOVASCULAR: Regular rate and rhythm without murmurs, gallops, or rubs. RESPIRATORY: Breath sounds equal bilaterally. No accessory muscle use. GASTROINTESTINAL: Abdomen soft. Tender to palpation. Dressings in place. Left lower quadrant with drain in place. Draining clear brown fluid now MUSCULOSKELETAL: No cyanosis. Left arm with edema and some tenderness to palpation. No discoloration. BACK: Nontender without obvious deformity. No CVA tenderness. PSYCH: Flattened affect. Medications and IVs Current Medications Medications (Trade) Dose Ordered Sig/Cori Route Start Time Stop Time Status Last Admin (Zofran Inj) 4 mg Q6H PRN IVP 07/10/16 19:45 07/17/16 17:34 (Symbicort 160-4.5 Inh) 2 puff Q12HR INH 07/10/16 21:00 07/21/16 08:54 (Vitamin B12) 500 mcg DAILY PO 07/11/16 09:00 07/21/16 08:50 (Folate) 1 mg DAILY PO 07/11/16 09:00 07/21/16 08:49 (Cozaar) 100 mg DAILY PO 07/11/16 09:00 Hold 07/12/16 09:24 (Theragran M Tab) 1 tab DAILY PO 07/11/16 09:00 07/21/16 08:48 (Pravachol) 80 mg HS PO 07/10/16 21:00 07/20/16 19:51 (Morphine Inj) 2 mg Q3H PRN IV PUSH 07/10/16 20:00 07/20/16 05:04 (Ambien) 5 mg HS PRN PO 07/10/16 20:00 07/19/16 21:49 (Ativan Inj) 1 mg Q3H PRN IV PUSH 07/10/16 20:00 07/17/16 19:38 Atenolol 50 mg 50 mg DAILY PO 07/15/16 09:00 07/20/16 07:49 (D5-NS + KCl 20 Meq Inj) 1,000 ml @ 80 mls/hr [id number] IV 07/18/16 19:27 07/20/16 22:38 ([place] 5-325 Mg) 1 tab Q4H PRN PO 07/18/16 19:30 ([place] 5-325 Mg) 2 tab Q4H PRN PO 07/18/16 19:30 (Toradol Inj) 30 mg Q6H PRN IVP 07/18/16 19:30 07/21/16 19:29 07/18/16 20:15 (Tylenol) 650 mg Q4H PRN PO 07/18/16 19:30 (Protonix Inj) 40 mg DAILY IVP 07/19/16 09:00 (Protonix) 40 mg DAILY PO 07/19/16 09:00 07/21/16 08:49 (Reglan Inj) 10 mg Q12HR IVS 07/18/16 21:00 07/21/16 08:53 (Vasotec Inj) 1.25 mg Q4H PRN IV 07/18/16 19:30 (Vasotec Inj) 2.5 mg Q6H PRN IV 07/18/16 19:30 Benzocaine/ Menthol 1 lozenge 1 lozenge UNSCH PRN SUCK-ON 07/18/16 19:30 Potassium Chloride 100 ml @ 50 mls/hr UNSCH PRN IV 07/18/16 19:30 (KCl 40 Meq Premix Inj) 100 ml @ 25 mls/hr UNSCH PRN IV 07/18/16 19:30 (Narcan Inj) 0.4 mg UNSCH PRN IV 07/18/16 19:30 (Morphine 1 Mg/ ml LEAD SOFTWARE DEVELOPMENT ENGINEER) 30 mg UNSCH IV 07/18/16 19:30 07/20/16 20:00 LE[employer] SOFTWARE DEVELOPMENT ENGINEER Dosage Infused (Pha) 1 1 Q8HR .XX 07/18/16 22:00 07/21/16 14:00 (Flagyl 500 Mg Inj) 100 ml @ 100 mls/hr Q8H IV 07/19/16 17:00 07/21/16 08:54 Furosemide 10 mg 10 mg Q12HR IV PUSH 07/20/16 10:15 07/21/16 08:53 (Vancomycin Inj/ NS 250 ml Inj) 262.5 ml @ 250 mls/hr Q12H IV 07/20/16 12:00 07/21/16 12:00 (Heparin Inj) 5,000 units Q12HR SQ 07/20/16 10:30 07/21/16 08:52 (NS Flush) See Protocol DAILY IVF 07/22/16 09:00 (NS Flush) See Protocol UNSCH PRN IVF 07/21/16 10:15 (Heparin Central Flush) See Protocol DAILY IVF 07/22/16 09:00 (Heparin Central Flush) See Protocol UNSCH PRN IVF 07/21/16 10:15 (NS Flush) See Protocol UNSCH PRN IVF 07/21/16 10:15 (NS Flush) See Protocol Q8HR IVF 07/21/16 14:00 IV Flush See Protocol UNSCH PRN IVF 07/21/16 10:15 (Cipro 400 Mg Premix) 200 ml @ 200 mls/hr Q12H IV 07/21/16 15:00 07/21/16 16:23 A/P Problem List: (1) Diverticulitis of intestine with abscess ICD Code: K57.80 Status: Acute (2) Intra-abdominal abscess ICD Code: K65.1 Status: Acute (3) Abdominal pain ICD Code: R10.9 Status: Acute (4) Failure of outpatient treatment ICD Code: Z78.9 Status: Acute (5) HTN (hypertension) ICD Code: I10 Status: Acute (6) COPD (chronic obstructive pulmonary disease) ICD Code: J44.9 Status: Acute (7) Tobacco abuse ICD Code: Z72.0 Status: Acute Assessment and Plan Intra-Abdominal abscess [facility] Abd/Pelvis w/ 10cm intra-abdominal abscess. ER physician spoke w/ Dr. Hackett and Dr. Degroot from IR. 07/11CT- guided drainage of intra-abdominal abscess, with drain placement. S/p surgery 07/18. - Diet per CRS. - Continue Cipro and Flagyl per infectious disease. - Management as per CRS. - pain control with a bowel regimen. Hyperglycemia The pt does not appear to have a history of diabetes. A1c 6.5%. - lifestyle modifications. - insulin sliding scale. Left arm edema S/t IV infiltration. - keep arm elevated. - warm compresses. - US pending. Leukocytosis May be a stress reaction. Afebrile. Blood cultures negative. - antibiotics per ID. HTN Stable. - continue atenolol. Hold losartan. Tobacco Abuse Pt counselled. - Offered NicoDerm if needed. DVT Prophylaxis: SCD/Teds. patient is ambulatory.anticoagulation as per surgical service. Discharge Planning Per colorectal surgery. Problem Qualifiers (1) Diverticulitis of intestine with abscess: Qualified Code: K57.20 - Diverticulitis of large intestine with abscess without bleeding (2) Abdominal pain: Qualified Code: R10.32 - Left lower quadrant pain Narciso Ugarte DO Jul 21, 2016 17:25
[2016-07-21] MEDS: PRAVASTATIN SOD 80 MG TAB PO SCH (19:59)
[2016-07-21 20:00] VITALS: BP 113/68; PULSE 79; RESP 20; TEMP 97.9; O2SAT 99
--- NOTE | 2016-07-21 20:22 | RADRPT ---
EXAM DATE/TIME: 07/21/2016 19:11 [facility] COMPARISON: No previous studies available for comparison. INDICATIONS : Left arm swelling. MEDICAL HISTORY : Hypertension. Diverticulitis. Chronic obstructive pulmonary disease. SURGICAL HISTORY : History of bilateral cataract removal. Abdominal drain placement. Bowel resection. ENCOUNTER: Initial ACUITY: 1 day PAIN SCORE: 0/10 LOCATION: Left arm. FINDINGS: The cephalic vein is thrombosed, however the basilic brachialis axillary and subclavian, internal jug ular veins are patent. CONCLUSION: Thrombosed cephalic vein. Aby Aguilar MD on July 21, 2016 at 20:19 Board Certified Radiologist. This report was verified electronically.
[2016-07-21] MEDS: MORPHINE SULFATE 30 MG/30 ML PCA IV SCH (21:01)
[2016-07-21] MEDS: ZOLPIDEM TARTRATE 5 MG TAB PO PRN (21:53)
[2016-07-22] VITALS: BP 118/70; PULSE 80; RESP 20; TEMP 98; O2SAT 97
[2016-07-22] MEDS: metroNIDAZOLE 500 MG INJ 100 ML IV SCH ×3 (00:48→17:00)
[2016-07-22] MEDS: CIPROFLOXACIN 400 MG PREMIX 200 ML IV SCH ×2 (03:07→15:55)
[2016-07-22 04:00] VITALS: BP 122/74; PULSE 72; RESP 18; TEMP 97.4; O2SAT 97
[2016-07-22 04:53] LABS: AUTOMATED NEUTROPHIL # 14.1 TH/MM3 (1.8-7.7); BASOPHIL # 0.1 TH/MM3 (0-0.2); BASOPHIL % 0.4 % (0.0-2.0); EOSINOPHIL # 0.2 TH/MM3 (0-0.4); EOSINOPHIL % 1.5 % (0.0-4.0); HEMATOCRIT 24.8 % (39.0-51.0); HEMO FLAGS DIFF FINAL; LYMPHOCYTE # 0.8 TH/MM3 (1.0-4.8); MEAN CELL VOLUME 89.4 FL (80.0-100.0); MEAN CORPUSCULAR HEMOGLOBIN 30.1 PG (27.0-34.0); MEAN CORPUSCULAR HGB CONC 33.6 % (32.0-36.0); MONO % 4.5 % (0.0-8.0); NEUT % 88.6 % (16.0-70.0); PLATELET COUNT 344 TH/MM3 (150-450); RED BLOOD COUNT 2.78 MIL/MM3 (4.50-5.90); RED CELL DISTRIBUTION WIDTH 16.1 % (11.6-17.2); WHITE BLOOD COUNT 15.9 TH/MM3 (4.0-11.0)
[2016-07-22 05:07] LABS: BICARBONATE 21.6 MEQ/L (21.0-32.0); MAGNESIUM 1.4 MG/DL (1.5-2.5); POTASSIUM 3.2 MEQ/L (3.5-5.1)
[2016-07-22] MEDS: INSULIN ASPART SUPPLEMENTAL SCALE SQ SCH ×4 (05:23→21:00)
[2016-07-22] MEDS: [UNRECOGNIZED DRUG - REMARK] IVF SCH ×3 (06:00→21:40)
[2016-07-22] MEDS: PCA - TOTAL MG MORPHINE DELIVERED PER SHIFT SCH ×2 (06:00→14:00)
[2016-07-22] MEDS: CYANOCOBALAMIN 1,000 MCG TAB PO SCH (07:40)
[2016-07-22] MEDS: ATENOLOL 50 MG TAB PO SCH (07:41)
[2016-07-22] MEDS: PANTOPRAZOLE SOD 40 MG DELAYED RELEASE TAB PO SCH (07:41)
[2016-07-22] MEDS: FOLIC ACID 1 MG TAB PO SCH (07:41)
[2016-07-22] MEDS: MULTIVITAMINS/MINERALS THERAPEUTIC TAB PO SCH (07:41)
[2016-07-22] MEDS: PANTOPRAZOLE SODIUM 40 MG VIAL IVP SCH (07:42)
[2016-07-22] MEDS: FUROSEMIDE 20 MG/2 ML VIAL IV PUSH SCH ×2 (07:42→21:39)
[2016-07-22] MEDS: BUDESONIDE-FORMOTEROL 160/4.5 MCG INHALER INH SCH ×2 (07:43→21:39)
[2016-07-22] MEDS: METOCLOPRAMIDE HCL 10 MG/2 ML VIAL IVS SCH ×2 (07:43→21:39)
[2016-07-22] MEDS: HEPARIN SODIUM - SQ 10,000 UNITS/ML VIAL SQ SCH ×2 (07:43→21:38)
[2016-07-22 08:13] VITALS: BP 106/56; PULSE 66; RESP 17; TEMP 96.9; O2SAT 98
[2016-07-22] MEDS: D5-NS + KCL 20 MEQ INJ 1,000 ML IV SCH (11:12)
[2016-07-22 11:35] VITALS: BP 112/57; PULSE 83; RESP 19; TEMP 98.3; O2SAT 96
[2016-07-22] MEDS: VANCOMYCIN INJ 1,250 MG in SODIUM CHLOR 0.9% 250 ML INJ 250 ML IV SCH (12:16)
[2016-07-22] MEDS ORDERED: POTASSIUM CHLORIDE 25 MEQ EFFERVESCENT TAB PO ONE (14:00)
[2016-07-22] MEDS: MAGNESIUM SULFATE 1 GM PREMIX 100 ML IV SCH ×2 (14:31→15:55)
--- NOTE | 2016-07-22 14:31 | HHI.PR ---
Subjective Remarks The patient said that he still had the same amount of pain as he did yesterday. He mentioned that his left arm might be a little bit less swollen. He has no pain in that left arm. He has been eating a little. He says he might have a little bit of difficulty with swallowing. He says he has had a lot of output in the drains.. Objective Vitals Vital Signs Date Time Temp Pulse Resp B/P Pulse Ox O2 Delivery O2 Flow Rate FiO2 07/22/16 11:35 98.3 83 19 112/57 96 07/22/16 08:13 96.9 66 17 106/56 98 07/22/16 06:00 20 07/22/16 04:00 97.4 72 18 122/74 97 07/22/16 00:00 98.0 80 20 118/70 97 07/21/16 22:00 18 07/21/16 21:06 18 07/21/16 21:01 18 07/21/16 20:00 97.9 79 20 113/68 99 07/21/16 16:00 98.4 70 20 111/56 98 I/O 07/21/16 07/21/16 07/21/16 07/22/16 07/22/16 07/22/16 07:00 15:00 23:00 07:00 15:00 23:00 Intake Total 736 ml 1081 ml 1184 ml 1429 ml 120 ml Output Total 450 ml 1635 ml 1030 ml 1160 ml 1350 ml Balance 286 ml -554 ml 154 ml 269 ml -1230 ml Intake Oral 120 ml 600 ml 480 ml 440 ml 120 ml IV Total 616 ml 481 ml 704 ml 989 ml Output Urine Total 450 ml 1625 ml 1000 ml 850 ml 900 ml Stool Total 300 ml 450 ml Drainage Total 0 ml 10 ml 30 ml 10 ml # Bowel Movements 0 0 0 0 Result Diagram: 07/22/16 0430 07/22/16 0430 Imaging Last Impressions Upper Extremity Ultrasound 07/21/16 0000 Signed Impressions: Service Date/Time: Thursday, July 21, 2016 19:11 - CONCLUSION: Thrombosed cephalic vein. Aby Aguilar MD Chest X-Ray 07/21/16 0000 Signed Impressions: Service Date/Time: Thursday, July 21, 2016 10:55 - CONCLUSION: No acute disease. Right-sided PICC line with tip in the caval atrial junction. Wade Hanna MD Catheter Change 07/14/16 0000 Signed Impressions: Service Date/Time: Thursday, July 14, 2016 16:02 - CONCLUSION: Uncomplicated tube exchange as above. Rudi Resendez MD Abscess Drainage CT 07/11/16 0000 Signed Impressions: Service Date/Time: Monday, July 11, 2016 14:14 - CONCLUSION: Uncomplicated CT guided drainage. Reece Elkins MD Objective Remarks GENERAL: Alert and oriented 3. SKIN: Warm and dry. HEAD: Normocephalic, atraumatic. EYES: No scleral icterus. No injection or drainage. NECK: Supple, trachea midline. No JVD. CARDIOVASCULAR: Regular rate and rhythm without murmurs, gallops, or rubs. RESPIRATORY: Breath sounds equal bilaterally. No accessory muscle use. GASTROINTESTINAL: Abdomen soft. Tender to palpation. Dressings in place. Left lower quadrant with drain in place. Draining clear brown fluid now MUSCULOSKELETAL: No cyanosis. Left arm with edema and no tenderness to palpation. No discoloration. 2+ lower extremity edema. BACK: Nontender without obvious deformity. No CVA tenderness. PSYCH: Flattened affect. Medications and IVs Current Medications Medications (Trade) Dose Ordered Sig/Croi Route Start Time Stop Time Status Last Admin (Zofran Inj) 4 mg Q6H PRN IVP 07/10/16 19:45 07/17/16 17:34 (Symbicort 160-4.5 Inh) 2 puff Q12HR INH 07/10/16 21:00 07/22/16 07:43 (Vitamin B12) 500 mcg DAILY PO 07/11/16 09:00 07/22/16 07:40 (Folate) 1 mg DAILY PO 07/11/16 09:00 07/22/16 07:41 (Cozaar) 100 mg DAILY PO 07/11/16 09:00 Hold 07/12/16 09:24 (Theragran M Tab) 1 tab DAILY PO 07/11/16 09:00 07/22/16 07:41 (Pravachol) 80 mg HS PO 07/10/16 21:00 07/21/16 19:59 (Morphine Inj) 2 mg Q3H PRN IV PUSH 07/10/16 20:00 07/20/16 05:04 (Ambien) 5 mg HS PRN PO 07/10/16 20:00 07/21/16 21:53 (Ativan Inj) 1 mg Q3H PRN IV PUSH 07/10/16 20:00 07/17/16 19:38 Atenolol 50 mg 50 mg DAILY PO 07/15/16 09:00 07/20/16 07:49 (D5-NS + KCl 20 Meq Inj) 1,000 ml @ 80 mls/hr [id number] IV 07/18/16 19:27 07/22/16 11:12 ([place] 5-325 Mg) 1 tab Q4H PRN PO 07/18/16 19:30 ([place] 5-325 Mg) 2 tab Q4H PRN PO 07/18/16 19:30 (Tylenol) 650 mg Q4H PRN PO 07/18/16 19:30 (Protonix Inj) 40 mg DAILY IVP 07/19/16 09:00 (Protonix) 40 mg DAILY PO 07/19/16 09:00 07/22/16 07:41 (Reglan Inj) 10 mg Q12HR IVS 07/18/16 21:00 07/22/16 07:43 (Vasotec Inj) 1.25 mg Q4H PRN IV 07/18/16 19:30 (Vasotec Inj) 2.5 mg Q6H PRN IV 07/18/16 19:30 Benzocaine/ Menthol 1 lozenge 1 lozenge UNSCH PRN SUCK-ON 07/18/16 19:30 Potassium Chloride 100 ml @ 50 mls/hr UNSCH PRN IV 07/18/16 19:30 (KCl 40 Meq Premix Inj) 100 ml @ 25 mls/hr UNSCH PRN IV 07/18/16 19:30 (Narcan Inj) 0.4 mg UNSCH PRN IV 07/18/16 19:30 (Morphine 1 Mg/ ml BAG SORTER) 30 mg UNSCH IV 07/18/16 19:30 07/21/16 21:01 BAG SORTER Dosage Infused (Pha) 1 1 Q8HR .XX 07/18/16 22:00 07/22/16 06:00 (Flagyl 500 Mg Inj) 100 ml @ 100 mls/hr Q8H IV 07/19/16 17:00 07/22/16 07:43 Furosemide 10 mg 10 mg Q12HR IV PUSH 07/20/16 10:15 07/22/16 07:42 (Vancomycin Inj/ NS 250 ml Inj) 262.5 ml @ 250 mls/hr Q12H IV 07/20/16 12:00 07/22/16 12:16 (Heparin Inj) 5,000 units Q12HR SQ 07/20/16 10:30 07/22/16 07:43 (NS Flush) See Protocol DAILY IVF 07/22/16 09:00 (NS Flush) See Protocol UNSCH PRN IVF 07/21/16 10:15 (Heparin Central Flush) See Protocol DAILY IVF 07/22/16 09:00 (Heparin Central Flush) See Protocol UNSCH PRN IVF 07/21/16 10:15 (NS Flush) See Protocol UNSCH PRN IVF 07/21/16 10:15 (NS Flush) See Protocol Q8HR IVF 07/21/16 14:00 IV Flush See Protocol UNSCH PRN IVF 07/21/16 10:15 Ciprofloxacin/ Dextrose 200 ml @ 200 mls/hr Q12H IV 07/21/16 15:00 07/22/16 03:07 (Magnesium Sulfate 1 Gm Premix) 100 ml @ 100 mls/hr Q1H IV 07/22/16 14:00 07/22/16 15:59 A/P Problem List: (1) Diverticulitis of intestine with abscess ICD Code: K57.80 Status: Acute (2) Intra-abdominal abscess ICD Code: K65.1 Status: Acute (3) Abdominal pain ICD Code: R10.9 Status: Acute (4) Failure of outpatient treatment ICD Code: Z78.9 Status: Acute (5) HTN (hypertension) ICD Code: I10 Status: Acute (6) COPD (chronic obstructive pulmonary disease) ICD Code: J44.9 Status: Acute (7) Tobacco abuse ICD Code: Z72.0 Status: Acute Assessment and Plan Intra-Abdominal abscess Referred to ER by [facility] for outpatient CT Abd/Pelvis w/ 10cm intra-abdominal abscess. ER physician spoke w/ Dr. Hackett and Dr. Degroot from . 07/11CT- guided drainage of intra-abdominal abscess, with drain placement. S/p surgery 07/18. - Diet per CRS. On a full liquid diet 07/22. - Continue Cipro and Flagyl per infectious disease. - Management as per CRS. - pain control with a bowel regimen. Cephalic vein thrombosis Noted in the left arm which is swollen. - defer anticoagulation to CRS in light of recent surgery. The pt is not having pain and it is a superficial vein so anticoagulation is not necessarily indicated. - warm compresses. Hyperglycemia The pt does not appear to have a history of diabetes. A1c 6.5%. - lifestyle modifications. - insulin sliding scale. Leukocytosis May be a stress reaction. Afebrile. Blood cultures negative. - antibiotics per ID. HTN Stable. - continue atenolol. Hold losartan. Tobacco Abuse Pt counselled. - Offered NicoDerm if needed. Edema The pt is on IVFs. - d/c IVFs as tolerating PO. - increase Lasix to 20 mg BID 07/22. Hypokalemia S/t poor PO intake. - replete and monitor. DVT Prophylaxis: SCD/Teds. patient is ambulatory.anticoagulation as per surgical service. Discharge Planning Per colorectal surgery. Problem Qualifiers (1) Diverticulitis of intestine with abscess: Qualified Code: K57.20 - Diverticulitis of large intestine with abscess without bleeding (2) Abdominal pain: Qualified Code: R10.32 - Left lower quadrant pain Narciso Ugarte DO Jul 22, 2016 14:31
[2016-07-22 16:00] VITALS: BP 123/62; PULSE 86; RESP 19; TEMP 98.7; O2SAT 98
[2016-07-22 20:00] VITALS: BP 124/73; PULSE 74; RESP 20; TEMP 99; O2SAT 98
[2016-07-22] MEDS ORDERED: POTASSIUM CL 40 MEQ/30 ML LIQ UDC PO ONE (20:00)
--- NOTE | 2016-07-22 20:57 | HHI.PR ---
Subjective Remarks C/R Surg POD #4 afebrile, VSS UO good CARMEN min cherry PO Objective - Vital Signs Date Time Temp Pulse Resp B/P Pulse Ox O2 Delivery O2 Flow Rate FiO2 07/22/16 16:00 98.7 86 19 123/62 98 07/20/16 07:50 Room Air 07/19/16 04:00 2.00 Result Diagram: 07/22/16 04307/22/16 043 Objective Remarks PE alert Abd - soft, less tender, no mass, wound dry stoma functioning A/P Assessment and Plan Imp: Diverticulitis with lg abscess - poss perf colon cancer, check path OOB/PT Lt arm much better - hold clot busters start PO, adv dc plans Bobo Hackett MD Jul 22, 2016 20:57
[2016-07-22] MEDS: PRAVASTATIN SOD 80 MG TAB PO SCH (21:40)
[2016-07-23] VITALS: BP 130/75; PULSE 109; RESP 20; TEMP 98.8; O2SAT 99
[2016-07-23] MEDS: VANCOMYCIN INJ 1,250 MG in SODIUM CHLOR 0.9% 250 ML INJ 250 ML IV SCH ×2 (00:19→11:15)
[2016-07-23] MEDS: [UNRECOGNIZED DRUG - REMARK] IVF SCH ×3 (05:33→20:34)
[2016-07-23] MEDS: INSULIN ASPART SUPPLEMENTAL SCALE SQ SCH ×4 (05:34→20:33)
[2016-07-23 06:54] LABS: HEMATOCRIT 26.6 % (39.0-51.0); MEAN CELL VOLUME 89.1 FL (80.0-100.0); MEAN CORPUSCULAR HGB CONC 33.7 % (32.0-36.0); PLATELET COUNT 322 TH/MM3 (150-450); RED BLOOD COUNT 2.98 MIL/MM3 (4.50-5.90); RED CELL DISTRIBUTION WIDTH 16.2 % (11.6-17.2); REVIEW FLAG FINAL; WHITE BLOOD COUNT 14.5 TH/MM3 (4.0-11.0)
[2016-07-23 07:14] LABS: BICARBONATE 23.8 MEQ/L (21.0-32.0); MAGNESIUM 1.6 MG/DL (1.5-2.5); POTASSIUM 3.4 MEQ/L (3.5-5.1)
[2016-07-23 08:00] VITALS: BP 103/61; PULSE 82; RESP 20; TEMP 99; O2SAT 97
[2016-07-23] MEDS: ACETAMINOPHEN/HYDROcodone 325 MG/5 MG TAB PO PRN ×4 (08:44→23:02)
[2016-07-23] MEDS: FUROSEMIDE 20 MG/2 ML VIAL IV PUSH SCH ×2 (08:45→20:25)
[2016-07-23] MEDS: MULTIVITAMINS/MINERALS THERAPEUTIC TAB PO SCH (08:45)
[2016-07-23] MEDS: PANTOPRAZOLE SOD 40 MG DELAYED RELEASE TAB PO SCH (08:45)
[2016-07-23] MEDS: FOLIC ACID 1 MG TAB PO SCH (08:45)
[2016-07-23] MEDS: HEPARIN SODIUM - SQ 10,000 UNITS/ML VIAL SQ SCH ×2 (08:45→20:24)
[2016-07-23] MEDS: METOCLOPRAMIDE HCL 10 MG/2 ML VIAL IVS SCH ×2 (08:45→20:21)
[2016-07-23] MEDS: BUDESONIDE-FORMOTEROL 160/4.5 MCG INHALER INH SCH ×2 (08:46→21:15)
[2016-07-23] MEDS: ATENOLOL 50 MG TAB PO SCH (08:46)
[2016-07-23] MEDS: CYANOCOBALAMIN 1,000 MCG TAB PO SCH (08:46)
[2016-07-23] MEDS: PANTOPRAZOLE SODIUM 40 MG VIAL IVP SCH (08:46)
[2016-07-23] MEDS ORDERED: MAGNESIUM SULFATE 1 GM PREMIX 100 ML IV ONE (09:30)
[2016-07-23] MEDS ORDERED: POTASSIUM CHLORIDE 25 MEQ EFFERVESCENT TAB PO ONE (09:30)
--- NOTE | 2016-07-23 09:54 | HHI.PR ---
Subjective Remarks The patient said he wanted to try to order some regular food. He said the Segovia catheter was removed a few hours ago and he still has been unable to void. His was at the bedside and concerned about his care once he gets discharged from the hospital as she will be home alone with him. The patient endorses a cough productive of white sputum. Objective Vitals Vital Signs Date Time Temp Pulse Resp B/P Pulse Ox O2 Delivery O2 Flow Rate FiO2 07/23/16 08:00 99.0 82 20 103/61 97 07/23/16 00:00 98.8 109 20 130/75 99 07/22/16 22:00 Room Air 07/22/16 20:00 99.0 74 20 124/73 98 07/22/16 16:00 98.7 86 19 123/62 98 07/22/16 14:00 6 07/22/16 11:35 98.3 83 19 112/57 96 I/O 07/22/16 07/22/16 07/22/16 07/23/16 07/23/16 07/23/16 07:00 15:00 23:00 07:00 15:00 23:00 Intake Total 1429 ml 840 ml 620 ml 490 ml 120 ml Output Total 1160 ml 2550 ml 1760 ml 2660 ml Balance 269 ml -1710 ml -1140 ml -2170 ml 120 ml Intake Oral 440 ml 840 ml 120 ml 240 ml 120 ml IV Total 989 ml 500 ml 250 ml Output Urine Total 850 ml 2100 ml 1000 ml 650 ml Stool Total 300 ml 450 ml 750 ml 2000 ml Drainage Total 10 ml 10 ml 10 ml # Bowel Movements 0 0 Result Diagram: 07/23/1630 07/23/1630 Imaging Last Impressions Upper Extremity Ultrasound 07/21/16 0000 Signed Impressions: Service Date/Time: Thursday, July 21, 2016 19:11 - CONCLUSION: Thrombosed cephalic vein. Aby Aguilar MD Chest X-Ray 07/21/16 0000 Signed Impressions: Service Date/Time: Thursday, July 21, 2016 10:55 - CONCLUSION: No acute disease. Right-sided PICC line with tip in the caval atrial junction. Wade Hanna MD Catheter Change 07/14/16 0000 Signed Impressions: Service Date/Time: Thursday, July 14, 2016 16:02 - CONCLUSION: Uncomplicated tube exchange as above. Rudi Resendez MD Abscess Drainage CT 07/11/16 0000 Signed Impressions: Service Date/Time: Monday, July 11, 2016 14:14 - CONCLUSION: Uncomplicated CT guided drainage. Reece Elkins MD Objective Remarks GENERAL: Alert and oriented 3. SKIN: Warm and dry. HEAD: Normocephalic, atraumatic. EYES: No scleral icterus. No injection or drainage. NECK: Supple, trachea midline. No JVD. CARDIOVASCULAR: Regular rate and rhythm without murmurs, gallops, or rubs. RESPIRATORY: Breath sounds equal bilaterally. No accessory muscle use. GASTROINTESTINAL: Abdomen soft. Tender to palpation. Dressings in place. Left lower quadrant with drain in place. Draining clear brown fluid now MUSCULOSKELETAL: No cyanosis. Left arm with edema and no tenderness to palpation. No discoloration. 2+ lower extremity edema. BACK: Nontender without obvious deformity. No CVA tenderness. PSYCH: Flattened affect. Medications and IVs Current Medications Medications (Trade) Dose Ordered Sig/Cori Route Start Time Stop Time Status Last Admin (Zofran Inj) 4 mg Q6H PRN IVP 07/10/16 19:45 07/17/16 17:34 (Symbicort 160-4.5 Inh) 2 puff Q12HR INH 07/10/16 21:00 07/23/16 08:46 (Vitamin B12) 500 mcg DAILY PO 07/11/16 09:00 07/23/16 08:46 (Folate) 1 mg DAILY PO 07/11/16 09:00 07/23/16 08:45 (Cozaar) 100 mg DAILY PO 07/11/16 09:00 Hold 07/12/16 09:24 (Theragran M Tab) 1 tab DAILY PO 07/11/16 09:00 07/23/16 08:45 (Pravachol) 80 mg HS PO 07/10/16 21:00 07/22/16 21:40 (Morphine Inj) 2 mg Q3H PRN IV PUSH 07/10/16 20:00 07/20/16 05:04 (Ambien) 5 mg HS PRN PO 07/10/16 20:00 07/21/16 21:53 (Ativan Inj) 1 mg Q3H PRN IV PUSH 07/10/16 20:00 07/17/16 19:38 (Tenormin) 50 mg DAILY PO 07/15/16 09:00 07/20/16 07:49 ([place] 5-325 Mg) 1 tab Q4H PRN PO 07/18/16 19:30 ([place] 5-325 Mg) 2 tab Q4H PRN PO 07/18/16 19:30 07/23/16 08:44 (Tylenol) 650 mg Q4H PRN PO 07/18/16 19:30 (Protonix Inj) 40 mg DAILY IVP 07/19/16 09:00 (Protonix) 40 mg DAILY PO 07/19/16 09:00 07/23/16 08:45 (Reglan Inj) 10 mg Q12HR IVS 07/18/16 21:00 07/23/16 08:45 (Vasotec Inj) 1.25 mg Q4H PRN IV 07/18/16 19:30 (Vasotec Inj) 2.5 mg Q6H PRN IV 07/18/16 19:30 Benzocaine/ Menthol 1 lozenge 1 lozenge UNSCH PRN SUCK-ON 07/18/16 19:30 Potassium Chloride 100 ml @ 50 mls/hr UNSCH PRN IV 07/18/16 19:30 Potassium Chloride 100 ml @ 25 mls/hr UNSCH PRN IV 07/18/16 19:30 (Vancomycin Inj/ NS 250 ml Inj) 262.5 ml @ 250 mls/hr Q12H IV 07/20/16 12:00 07/23/16 00:19 (Heparin Inj) 5,000 units Q12HR SQ 07/20/16 10:30 07/23/16 08:45 (NS Flush) See Protocol DAILY IVF 07/22/16 09:00 07/23/16 08:44 (NS Flush) See Protocol UNSCH PRN IVF 07/21/16 10:15 (Heparin Central Flush) See Protocol DAILY IVF 07/22/16 09:00 07/23/16 08:45 (Heparin Central Flush) See Protocol UNSCH PRN IVF 07/21/16 10:15 (NS Flush) See Protocol UNSCH PRN IVF 07/21/16 10:15 (NS Flush) See Protocol Q8HR IVF 07/21/16 14:00 07/23/16 05:33 IV Flush See Protocol UNSCH PRN IVF 07/21/16 10:15 (Magnesium Sulfate 1 Gm Premix) 100 ml @ 100 mls/hr ONCE ONCE IV 07/23/16 09:30 07/23/16 10:29 (Lasix Inj) 10 mg Q12HR IV PUSH 07/23/16 21:00 UNV A/P Problem List: (1) Diverticulitis of intestine with abscess ICD Code: K57.80 Status: Acute (2) Intra-abdominal abscess ICD Code: K65.1 Status: Acute (3) Abdominal pain ICD Code: R10.9 Status: Acute (4) Failure of outpatient treatment ICD Code: Z78.9 Status: Acute (5) HTN (hypertension) ICD Code: I10 Status: Acute (6) COPD (chronic obstructive pulmonary disease) ICD Code: J44.9 Status: Acute (7) Tobacco abuse ICD Code: Z72.0 Status: Acute Assessment and Plan Intra-Abdominal abscess [facility]/Pelvis w/ 10cm intra-abdominal abscess. ER physician spoke w/ Dr. Hackett and Dr. Degroot from IR. 07/11CT- guided drainage of intra-abdominal abscess, with drain placement. S/p surgery 07/18. - Diet per CRS. On a regular diet 07/23. - Cipro and Flagyl have been d/c. Continue vancomycin. Follow up with infectious disease. - Management as per CRS. - pain control with a bowel regimen. Cephalic vein thrombosis Noted in the left arm which is swollen. Improved. - defer anticoagulation to CRS in light of recent surgery. The pt is not having pain and it is a superficial vein so anticoagulation is not necessarily indicated. - warm compresses. Hyperglycemia The pt does not appear to have a history of diabetes. A1c 6.5%. - lifestyle modifications. - insulin sliding scale. Leukocytosis May be a stress reaction. Afebrile. Blood cultures negative. - antibiotics per ID. - repeat CXR and check a sputum culture 07/23. HTN Stable. - continue atenolol. Hold losartan. Tobacco Abuse Pt counselled. - Offered NicoDerm if needed. Edema The pt is on IVFs. - d/c IVFs as tolerating PO. - continue Lasix 10 mg BID. Hypokalemia S/t poor PO intake. - replete and monitor. Urinary retention S/t surgery. Segovia has been removed 07/23. - straight cath as needed. - replace Segovia if indicated. DVT Prophylaxis: SCD/Teds. patient is ambulatory.anticoagulation as per surgical service. Discharge Planning Per colorectal surgery. Problem Qualifiers (1) Diverticulitis of intestine with abscess: Qualified Code: K57.20 - Diverticulitis of large intestine with abscess without bleeding (2) Abdominal pain: Qualified Code: R10.32 - Left lower quadrant pain Narciso Ugarte DO Jul 23, 2016 09:54
--- NOTE | 2016-07-23 09:58 | HHI.FF ---
Face to Face Verification Diagnosis: (1) Diverticulitis of intestine with abscess (2) Abdominal pain (3) Tobacco abuse Physical Therapy Order: Evaluate and Treat, Improve ambulation, Strength and gait training Home Health Nursing Order: Medical education Signs/symptoms of disease process Medication education-adverse effect Wound care and dressing changes Nursing assessment with vital signs I have seen patient Flaco Mijares on 07/23/16. My clinical findings support the need for the requested home health care services because: Ltd mobility - disease progression Deconditioned w/ increased weakness Limited ability to care for self Infection w/ risk of complications I certify that my clinical findings support that this patient is homebound because: Post-op weakness Unsafe to leave home unassisted Narciso Ugarte DO Jul 23, 2016 09:58
[2016-07-23] MEDS ORDERED: Vancomycin Consult Pharmacy 1 EA OTHER SCH (10:00)
--- NOTE | 2016-07-23 10:28 | RADRPT ---
EXAM DATE/TIME: 07/23/2016 10:12 [place] COMPARISON: CHEST SINGLE AP, July 21, 2016, 10:55. INDICATIONS : Pneumonia. Cough. MEDICAL HISTORY : None. SURGICAL HISTORY : None. ENCOUNTER: Subsequent ACUITY: 2 days PAIN SCORE: 0/10 LOCATION: Bilateral cranial FINDINGS: A single view of the chest demonstrates the lungs to be symmetrically aerated without evidence of mas s, infiltrate or effusion. The cardiomediastinal contours are unremarkable. Osseous structures are intact. Right-sided PICC line. CONCLUSION: No acute disease. Jonathan Hatch Jr., MD on July 23, 2016 at 10:26 Board Certified Radiologist. This report was verified electronically.
[2016-07-23] MEDS ORDERED: LOPERAMIDE HCL 2 MG CAP PO PRN (11:30)
[2016-07-23 11:41] VITALS: BP 131/69; PULSE 112; RESP 19; TEMP 98.5; O2SAT 98
[2016-07-23] MEDS ORDERED: PHARMACY ORDERED LAB XX ONE (11:45)
[2016-07-23 16:00] VITALS: BP 142/71; PULSE 113; RESP 20; TEMP 96.9; O2SAT 98
[2016-07-23 20:00] VITALS: BP 112/64; PULSE 98; RESP 20; TEMP 97.1; O2SAT 96
[2016-07-23] MEDS: PRAVASTATIN SOD 80 MG TAB PO SCH (20:25)
[2016-07-23] MEDS: ZOLPIDEM TARTRATE 5 MG TAB PO PRN (23:01)
[2016-07-24] VITALS: BP 124/75; PULSE 95; RESP 20; TEMP 96.7; O2SAT 97
[2016-07-24] MEDS ORDERED: VANCOMYCIN INJ 1,250 MG in SODIUM CHLOR 0.9% 250 ML INJ 250 ML IV SCH (06:00)
[2016-07-24] MEDS: INSULIN ASPART SUPPLEMENTAL SCALE SQ SCH ×4 (07:00→21:00)
[2016-07-24] MEDS: ACETAMINOPHEN/HYDROcodone 325 MG/5 MG TAB PO PRN ×3 (07:00→15:54)
[2016-07-24] MEDS: [UNRECOGNIZED DRUG - REMARK] IVF SCH ×3 (07:32→22:57)
[2016-07-24 07:55] LABS: HEMATOCRIT 26.3 % (39.0-51.0); MEAN CELL VOLUME 88.3 FL (80.0-100.0); MEAN CORPUSCULAR HEMOGLOBIN 29.7 PG (27.0-34.0); MEAN CORPUSCULAR HGB CONC 33.6 % (32.0-36.0); PLATELET COUNT 317 TH/MM3 (150-450); RED BLOOD COUNT 2.98 MIL/MM3 (4.50-5.90); RED CELL DISTRIBUTION WIDTH 16.2 % (11.6-17.2); REVIEW FLAG FINAL; WHITE BLOOD COUNT 19.2 TH/MM3 (4.0-11.0)
[2016-07-24 08:00] VITALS: BP 121/60; PULSE 92; RESP 17; TEMP 98.6; O2SAT 97
[2016-07-24] MEDS: METOCLOPRAMIDE HCL 10 MG/2 ML VIAL IVS SCH ×2 (08:17→20:18)
[2016-07-24] MEDS: HEPARIN SODIUM - SQ 10,000 UNITS/ML VIAL SQ SCH ×2 (08:18→20:18)
[2016-07-24] MEDS: FUROSEMIDE 20 MG/2 ML VIAL IV PUSH SCH (08:18)
[2016-07-24] MEDS: ATENOLOL 50 MG TAB PO SCH (08:18)
[2016-07-24] MEDS: PANTOPRAZOLE SOD 40 MG DELAYED RELEASE TAB PO SCH (08:18)
[2016-07-24] MEDS: PANTOPRAZOLE SODIUM 40 MG VIAL IVP SCH (08:18)
[2016-07-24] MEDS: FOLIC ACID 1 MG TAB PO SCH (08:19)
[2016-07-24] MEDS: CYANOCOBALAMIN 1,000 MCG TAB PO SCH (08:19)
[2016-07-24] MEDS: BUDESONIDE-FORMOTEROL 160/4.5 MCG INHALER INH SCH ×2 (08:20→22:56)
[2016-07-24] MEDS: MULTIVITAMINS/MINERALS THERAPEUTIC TAB PO SCH (08:21)
[2016-07-24 08:24] LABS: BICARBONATE 25.4 MEQ/L (21.0-32.0); MAGNESIUM 1.7 MG/DL (1.5-2.5); POTASSIUM 3.4 MEQ/L (3.5-5.1)
[2016-07-24] MEDS: POTASSIUM CHLORIDE INJ 30 MEQ in DEXT 5%-NACL 0.9% 1000 ML INJ 1,000 ML IV SCH ×2 (09:44→23:02)
[2016-07-24 12:00] VITALS: BP 102/55; PULSE 87; RESP 18; TEMP 98.2; O2SAT 96
--- NOTE | 2016-07-24 14:08 | HHI.PR ---
Subjective Remarks The patient was resting comfortably in bed. Family was at the bedside. He said the swelling in his left arm was much improved. He says the drainage in his ostomy was getting more formed. He has been urinating without the Segovia catheter. Their questions were answered. Objective Vitals Vital Signs Date Time Temp Pulse Resp B/P Pulse Ox O2 Delivery O2 Flow Rate FiO2 07/24/16 12:00 98.2 87 18 102/55 96 07/24/16 08:00 98.6 92 17 121/60 97 07/24/16 08:00 20 07/24/16 00:00 96.7 95 20 124/75 97 07/23/16 20:00 97.1 98 20 112/64 96 07/23/16 16:00 96.9 113 20 142/71 98 I/O 07/23/16 07/23/16 07/23/16 07/24/16 07/24/16 07/24/16 07:00 15:00 23:00 07:00 15:00 23:00 Intake Total 490 ml 1236 ml 480 ml 240 ml Output Total 2660 ml 1170 ml 1025 ml 750 ml Balance -2170 ml 66 ml -545 ml -510 ml Intake Oral 240 ml 880 ml 480 ml 240 ml IV Total 250 ml 356 ml Output Urine Total 650 ml 250 ml 350 ml 300 ml Stool Total 2000 ml 900 ml 675 ml 450 ml Drainage Total 10 ml 20 ml Result Diagram: 07/24/16 0730 07/24/16 0730 Imaging Last Impressions Chest X-Ray 07/23/16 0000 Signed Impressions: Service Date/Time: Saturday, July 23, 2016 10:12 - CONCLUSION: No acute disease. Jonathan Hatch Jr., MD Upper Extremity Ultrasound 07/21/16 0000 Signed Impressions: Service Date/Time: Thursday, July 21, 2016 19:11 - CONCLUSION: Thrombosed cephalic vein. K. Pedro Aguilar MD Catheter Change 07/14/16 0000 Signed Impressions: Service Date/Time: Thursday, July 14, 2016 16:02 - CONCLUSION: Uncomplicated tube exchange as above. Rudi Resendez MD Abscess Drainage CT 07/11/16 0000 Signed Impressions: Service Date/Time: Monday, July 11, 2016 14:14 - CONCLUSION: Uncomplicated CT guided drainage. Reece Elkins MD Objective Remarks GENERAL: Alert and oriented 3. SKIN: Warm and dry. HEAD: Normocephalic, atraumatic. EYES: No scleral icterus. No injection or drainage. NECK: Supple, trachea midline. No JVD. CARDIOVASCULAR: Regular rate and rhythm without murmurs, gallops, or rubs. RESPIRATORY: Breath sounds equal bilaterally. No accessory muscle use. GASTROINTESTINAL: Abdomen soft. Tender to palpation. Dressings in place. Left lower quadrant with drain in place. Draining clear brown fluid now MUSCULOSKELETAL: No cyanosis. Left arm with mild edema and no tenderness to palpation, much improved. No discoloration. Trace lower extremity edema. BACK: Nontender without obvious deformity. No CVA tenderness. PSYCH: Flattened affect. Medications and IVs Current Medications Medications (Trade) Dose Ordered Sig/Cori Route Start Time Stop Time Status Last Admin (Zofran Inj) 4 mg Q6H PRN IVP 07/10/16 19:45 07/17/16 17:34 (Symbicort 160-4.5 Inh) 2 puff Q12HR INH 07/10/16 21:00 07/24/16 08:20 (Vitamin B12) 500 mcg DAILY PO 07/11/16 09:00 07/24/16 08:19 (Folate) 1 mg DAILY PO 07/11/16 09:00 07/24/16 08:19 (Cozaar) 100 mg DAILY PO 07/11/16 09:00 Hold 07/12/16 09:24 (Theragran M Tab) 1 tab DAILY PO 07/11/16 09:00 07/24/16 08:21 (Pravachol) 80 mg HS PO 07/10/16 21:00 07/23/16 20:25 (Morphine Inj) 2 mg Q3H PRN IV PUSH 07/10/16 20:00 07/20/16 05:04 (Ambien) 5 mg HS PRN PO 07/10/16 20:00 07/23/16 23:01 (Ativan Inj) 1 mg Q3H PRN IV PUSH 07/10/16 20:00 07/17/16 19:38 (Tenormin) 50 mg DAILY PO 07/15/16 09:00 07/24/16 08:18 ([place] 5-325 Mg) 1 tab Q4H PRN PO 07/18/16 19:30 ([place] 5-325 Mg) 2 tab Q4H PRN PO 07/18/16 19:30 07/24/16 11:10 (Tylenol) 650 mg Q4H PRN PO 07/18/16 19:30 (Protonix Inj) 40 mg DAILY IVP 07/19/16 09:00 (Protonix) 40 mg DAILY PO 07/19/16 09:00 07/24/16 08:18 (Reglan Inj) 10 mg Q12HR IVS 07/18/16 21:00 07/24/16 08:17 (Vasotec Inj) 1.25 mg Q4H PRN IV 07/18/16 19:30 (Vasotec Inj) 2.5 mg Q6H PRN IV 07/18/16 19:30 Benzocaine/ Menthol 1 lozenge 1 lozenge UNSCH PRN SUCK-ON 07/18/16 19:30 Potassium Chloride 100 ml @ 50 mls/hr UNSCH PRN IV 07/18/16 19:30 (KCl 40 Meq Premix Inj) 100 ml @ 25 mls/hr UNSCH PRN IV 07/18/16 19:30 (Heparin Inj) 5,000 units Q12HR SQ 07/20/16 10:30 07/24/16 08:18 (NS Flush) See Protocol DAILY IVF 07/22/16 09:00 07/23/16 08:44 (NS Flush) See Protocol UNSCH PRN IVF 07/21/16 10:15 (Heparin Central Flush) See Protocol DAILY IVF 07/22/16 09:00 07/24/16 08:17 (Heparin Central Flush) See Protocol UNSCH PRN IVF 07/21/16 10:15 (NS Flush) See Protocol UNSCH PRN IVF 07/21/16 10:15 (NS Flush) See Protocol Q8HR IVF 07/21/16 14:00 07/24/16 07:32 IV Flush See Protocol UNSCH PRN IVF 07/21/16 10:15 (Vancomycin Consult Pharmacy) 0 ml @ 0 mls/hr UNSCH OTHER 07/23/16 10:00 Loperamide HCl 2 mg 2 mg Q6H PRN PO 07/23/16 11:30 07/23/16 23:08 Vancomycin HCl 1250 mg/Sodium Chloride 262.5 ml @ 250 mls/hr Q18H IV 07/24/16 06:00 Hold 07/24/16 07:32 (KCl Inj/D5W-NS 1000 ml Inj) 1,015 ml @ 75 mls/hr [id number] IV 07/24/16 11:00 07/25/16 14:03 07/24/16 09:44 A/P Problem List: (1) Diverticulitis of intestine with abscess ICD Code: K57.80 Status: Acute (2) Intra-abdominal abscess ICD Code: K65.1 Status: Acute (3) Abdominal pain ICD Code: R10.9 Status: Acute (4) Failure of outpatient treatment ICD Code: Z78.9 Status: Acute (5) HTN (hypertension) ICD Code: I10 Status: Acute (6) COPD (chronic obstructive pulmonary disease) ICD Code: J44.9 Status: Acute (7) Tobacco abuse ICD Code: Z72.0 Status: Acute Assessment and Plan Intra-Abdominal abscess [facility]/Pelvis w/ 10cm intra-abdominal abscess. ER physician spoke w/ Dr. Hackett and Dr. Degroot from IR. 07/11CT- guided drainage of intra-abdominal abscess, with drain placement. S/p surgery 07/18. - Diet per CRS. On a regular diet. Tolerating well 07/24. - Cipro and Flagyl have been d/c. Continue vancomycin. Follow up with infectious disease. - Management as per CRS. - pain control with a bowel regimen. Cephalic vein thrombosis Noted in the left arm which is swollen. Improved, edema is minimal at this time. - defer anticoagulation to CRS in light of recent surgery. The pt is not having pain and it is a superficial vein so anticoagulation is not necessarily indicated. - warm compresses. Hyperglycemia The pt does not appear to have a history of diabetes. A1c 6.5%. - lifestyle modifications. - insulin sliding scale. Leukocytosis May be a stress reaction. Afebrile. Blood cultures negative. Chest x-ray unremarkable. No growth in urine culture. - antibiotics per ID. HTN Stable. - continue atenolol. Hold losartan. Tobacco Abuse Pt counselled. - Offered NicoDerm if needed. Hypokalemia S/t poor PO intake. - replete and monitor. Acute renal insufficiency Likely secondary to dehydration as the patient was on Lasix and the BUN is elevated. - DC Lasix. - IV fluids. - Follow BMP. DVT Prophylaxis: SCD/Teds. patient is ambulatory.anticoagulation as per surgical service. Discharge Planning Per colorectal surgery. Problem Qualifiers (1) Diverticulitis of intestine with abscess: Qualified Code: K57.20 - Diverticulitis of large intestine with abscess without bleeding (2) Abdominal pain: Qualified Code: R10.32 - Left lower quadrant pain Narciso Ugarte DO Jul 24, 2016 14:08
[2016-07-24 16:00] VITALS: BP 102/56; PULSE 88; RESP 17; TEMP 98.4; O2SAT 97
[2016-07-24 20:00] VITALS: BP 101/55; PULSE 72; RESP 20; TEMP 96.7; O2SAT 98
[2016-07-24] MEDS: PRAVASTATIN SOD 80 MG TAB PO SCH (20:18)
[2016-07-24] MEDS: oxyCODONE/ACETAMINOPHEN 10 MG/325 MG TAB PO PRN (20:21)
--- NOTE | 2016-07-24 22:42 | HHI.PR ---
Subjective Remarks C/R Surg POD #6 afebrile, VSS UO good CARMEN min - dc'd cherry PO stoma less Objective - Vital Signs Date Time Temp Pulse Resp B/P Pulse Ox O2 Delivery O2 Flow Rate FiO2 07/24/16 16:54 20 07/24/16 16:00 98.4 88 102/56 97 07/22/16 22:00 Room Air Result Diagram: 07/24/16 0730 07/24/16 0730 Objective Remarks PE alert Abd - soft, less tender, no mass, wound dry, lt lat skin reaction/yeast stoma functioning A/P Assessment and Plan Imp: Diverticulitis with lg abscess - poss perf colon cancer, check path - cancer colon OOB/PT Lt arm much better - hold clot busters start PO, adv dc plans, ? rehab will need RT/oncology Bobo Hackett MD Jul 24, 2016 22:42
[2016-07-24] MEDS: NYSTATIN 100,000 U/GM PWD 15 GM BTL TOPICAL SCH (22:55)
[2016-07-25] VITALS: BP 110/59; PULSE 86; RESP 20; TEMP 97.2; O2SAT 99
[2016-07-25] MEDS: [UNRECOGNIZED DRUG - REMARK] IVF SCH ×3 (05:35→20:59)
[2016-07-25] MEDS: oxyCODONE/ACETAMINOPHEN 10 MG/325 MG TAB PO PRN ×3 (05:35→20:57)
[2016-07-25] MEDS: INSULIN ASPART SUPPLEMENTAL SCALE SQ SCH ×4 (05:42→21:06)
[2016-07-25] MEDS: NYSTATIN 100,000 U/GM PWD 15 GM BTL TOPICAL SCH ×3 (05:43→20:59)
[2016-07-25 06:19] LABS: HEMATOCRIT 24.4 % (39.0-51.0); MEAN CELL VOLUME 88.7 FL (80.0-100.0); MEAN CORPUSCULAR HGB CONC 33.8 % (32.0-36.0); PLATELET COUNT 286 TH/MM3 (150-450); RED BLOOD COUNT 2.75 MIL/MM3 (4.50-5.90); RED CELL DISTRIBUTION WIDTH 16.5 % (11.6-17.2); REVIEW FLAG FINAL; WHITE BLOOD COUNT 14.4 TH/MM3 (4.0-11.0)
[2016-07-25 06:50] LABS: BICARBONATE 21.9 MEQ/L (21.0-32.0); MAGNESIUM 1.6 MG/DL (1.5-2.5); POTASSIUM 3.5 MEQ/L (3.5-5.1)
[2016-07-25 08:00] VITALS: BP 120/60; PULSE 80; RESP 16; TEMP 97.8; O2SAT 96
[2016-07-25] MEDS: CYANOCOBALAMIN 1,000 MCG TAB PO SCH (08:55)
[2016-07-25] MEDS: MULTIVITAMINS/MINERALS THERAPEUTIC TAB PO SCH (08:55)
[2016-07-25] MEDS: ATENOLOL 50 MG TAB PO SCH (08:55)
[2016-07-25] MEDS: PANTOPRAZOLE SOD 40 MG DELAYED RELEASE TAB PO SCH (08:55)
[2016-07-25] MEDS: FOLIC ACID 1 MG TAB PO SCH (08:55)
[2016-07-25] MEDS: PANTOPRAZOLE SODIUM 40 MG VIAL IVP SCH (08:56)
[2016-07-25] MEDS: METOCLOPRAMIDE HCL 10 MG/2 ML VIAL IVS SCH ×2 (08:56→20:58)
[2016-07-25] MEDS: HEPARIN SODIUM - SQ 10,000 UNITS/ML VIAL SQ SCH ×2 (08:56→20:58)
[2016-07-25] MEDS: BUDESONIDE-FORMOTEROL 160/4.5 MCG INHALER INH SCH ×2 (08:57→20:59)
[2016-07-25] MEDS: VANCOMYCIN INJ 1,500 MG in SODIUM CHLORID 0.9% 500 ML INJ 500 ML IV SCH (11:38)
[2016-07-25 12:00] VITALS: BP 105/59; PULSE 80; RESP 20; TEMP 96.8; O2SAT 98
--- NOTE | 2016-07-25 12:29 | HHI.PR ---
Subjective Remarks Follow-up intra-abdominal abscess and now new diagnosis of invasive differentiated adenocarcinoma 07/25/16-patient seen and examined; reports some shortness of breath with ambulation/exertion; so complains of bilateral lower extremity edema. Denies any chest pain. Currently afebrile. Patient also complains of no output in ileostomy bag 2 hours . by the bedside. Objective Vitals Vital Signs Date Time Temp Pulse Resp B/P Pulse Ox O2 Delivery O2 Flow Rate FiO2 07/25/16 08:00 97.8 80 16 120/60 96 07/25/16 00:00 97.2 86 20 110/59 99 07/24/16 20:00 96.7 72 20 101/55 98 07/24/16 16:54 20 07/24/16 16:00 98.4 88 17 102/56 97 I/O 07/24/16 07/24/16 07/24/16 07/25/16 07/25/16 07/25/16 06:59 14:59 22:59 06:59 14:59 22:59 Intake Total 240 ml 986 ml 1048 ml 923 ml Output Total 750 ml 900 ml 150 ml 1050 ml Balance -510 ml 86 ml 898 ml -127 ml Intake Oral 240 ml 480 ml 480 ml 240 ml IV Total 506 ml 568 ml 683 ml Output Urine Total 300 ml 500 ml 750 ml Stool Total 450 ml 400 ml 150 ml 300 ml # Voids 1 # Bowel Movements 1 Result Diagram: 07/25/16 0600 07/25/16 0600 Imaging Last Impressions Chest X-Ray 07/23/16 0000 Signed Impressions: Service Date/Time: Saturday, July 23, 2016 10:12 - CONCLUSION: No acute disease. Jonathan Hatch Jr., MD Upper Extremity Ultrasound 07/21/16 0000 Signed Impressions: Service Date/Time: Thursday, July 21, 2016 19:11 - CONCLUSION: Thrombosed cephalic vein. K. Pedro Aguilar MD Catheter Change 07/14/16 0000 Signed Impressions: Service Date/Time: Thursday, July 14, 2016 16:02 - CONCLUSION: Uncomplicated tube exchange as above. Rudi Resendez MD Abscess Drainage CT 07/11/16 0000 Signed Impressions: Service Date/Time: Monday, July 11, 2016 14:14 - CONCLUSION: Uncomplicated CT guided drainage. Reece Elkins MD Objective Remarks GENERAL: No acute distress SKIN: Warm and dry. HEAD: Normocephalic. EYES: No scleral icterus. No injection or drainage. NECK: Supple, trachea midline. No JVD or lymphadenopathy. CARDIOVASCULAR: Regular rate and rhythm without murmurs, gallops, or rubs. RESPIRATORY: Breath sounds equal bilaterally. No accessory muscle use. GASTROINTESTINAL: Abdomen soft, non-tender, nondistended. Surgical incision healing. Ileostomy intact MUSCULOSKELETAL: No cyanosis, or edema. BACK: Nontender without obvious deformity. No CVA tenderness. Procedures 07/18/16 Exploratory laparotomy with proctosigmoidectomy, low pelvic anastomosis , diverting ileostomy, on-table bowel prep. 1. Cystoscopy. 2. Placement of ureteral catheters, bilaterally A/P Problem List: (1) Diverticulitis of intestine with abscess ICD Code: K57.80 Status: Acute (2) Intra-abdominal abscess ICD Code: K65.1 Status: Acute (3) Abdominal pain ICD Code: R10.9 Status: Resolved (4) Failure of outpatient treatment ICD Code: Z78.9 Status: Resolved (5) HTN (hypertension) ICD Code: I10 Status: Chronic (6) COPD (chronic obstructive pulmonary disease) ICD Code: J44.9 Status: Chronic (7) Tobacco abuse ICD Code: Z72.0 Status: Chronic (8) Adenocarcinoma, colon ICD Code: C18.9 Status: Acute Assessment and Plan 66-year-old male with Intra-Abdominal abscess: outpatient CT Abd/Pelvis w/ 10cm intra-abdominal abscess. 07/11CT-guided drainage of intra-abdominal abscess, with drain placement. S/p surgery 07/18. Initially on Cipro and Flagyl per infectious disease patient is however discontinue and placed on vancomycin. Pathology report positive for invasive moderately differentiated adenocarcinoma of the colon Adenocarcinoma of the colon: Will consult medical oncology as well as radiation oncology, however treatment would be outpatients likely after patient surgically stable. 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 lifestyle modifications. Continue insulin sliding scale. However upon discharge was start patient on metformin 500 mg by mouth twice a day. Leukocytosis: May be a stress reaction. Afebrile. Blood cultures negative. Chest x-ray unremarkable. No growth in urine culture. antibiotics per ID. HTN- BP soft, continue atenolol. Hold losartan. Tobacco Abuse Pt counselled. - Offered NicoDerm if needed. Hypokalemia S/t poor PO intake. - replete and monitor. Acute renal insufficiency: Resolved Lower extremity swelling/edema: Will give Lasix IV 20 mg 1 07/25/16; order 2-D echo to rule out heart failure as patient with symptoms of dyspnea on exertion. DVT Prophylaxis: SCD/Teds. patient is ambulatory.anticoagulation as per surgical service. Problem Qualifiers (1) Diverticulitis of intestine with abscess: Qualified Code: K57.20 - Diverticulitis of large intestine with abscess without bleeding (2) Abdominal pain: Qualified Code: R10.32 - Left lower quadrant pain Wade Newman MD Jul 25, 2016 12:29 (1) Diverticulitis of intestine with abscess: Qualified Code: K57.20 - Diverticulitis of large intestine with abscess without bleeding (2) Abdominal pain: Qualified Code: R10.32 - Left lower quadrant pain Wade Newman MD Jul 25, 2016 12:29
--- NOTE | 2016-07-25 12:39 | HHI.PR ---
Subjective Remarks POD#7 s/p perforated cancer - LAR, ileo comfortable, tolerating po Objective Vital Signs Date Time Temp Pulse Resp B/P Pulse Ox O2 Delivery O2 Flow Rate FiO2 07/25/16 08:00 97.8 80 16 120/60 96 07/25/16 00:00 97.2 86 20 110/59 99 07/24/16 20:00 96.7 72 20 101/55 98 07/24/16 16:54 20 07/24/16 16:00 98.4 88 17 102/56 97 I/O 07/24/16 07/24/16 07/24/16 07/25/16 07/25/16 07/25/16 07:00 15:00 23:00 07:00 15:00 23:00 Intake Total 240 ml 986 ml 1048 ml 923 ml Output Total 750 ml 900 ml 150 ml 1050 ml Balance -510 ml 86 ml 898 ml -127 ml Intake Oral 240 ml 480 ml 480 ml 240 ml IV Total 506 ml 568 ml 683 ml Output Urine Total 300 ml 500 ml 750 ml Stool Total 450 ml 400 ml 150 ml 300 ml # Voids 1 # Bowel Movements 1 Result Diagram: 07/25/16 0600 07/25/[address] guided drain placement to left lower quadrant diverticular abscess on 07/11. Exchange on 07/14 by IR. Objective Remarks Abdomen soft, obese, tender Stoma pink, functional Wound open on left with granulation tissue starting Still with surrounding candidiasis Assessment and Plan Assessment and Plan Possibly home in am with [facility] for wound and stoma Antibiotics per Ryann Noel MD Jul 25, 2016 12:39
[2016-07-25] MEDS ORDERED: FUROSEMIDE 20 MG/2 ML VIAL IV PUSH ONE (12:45)
[2016-07-25 16:00] VITALS: BP 100/62; PULSE 90; RESP 20; TEMP 98.2; O2SAT 97
[2016-07-25] MEDS ORDERED: PHARMACY ORDERED LAB XX ONE (17:45)
--- NOTE | 2016-07-25 17:53 | EC ---
Study Study Date:07/25/2016 STUDY CONCLUSIONS SUMMARY - Left ventricle: The cavity size was normal. Wall thickness was normal. Systolic function was mildly reduced. The estimated ejection fraction was in the range of 45% to 50%. Wall motion was normal; there were no regional wall motion abnormalities. - Aortic valve: Valve area: 3.06cm^2 (Vmax). - Mitral valve: Mildly calcified annulus. If LV function is below 40, please consider prescribing an ACEI or ARB or document rationale for non-use. PROCEDURE DATA STUDY STATUS: Elective. Procedure: Transthoracic echocardiography. Image quality was fair. Scanning was performed from the parasternal, apical, and subcostal acoustic windows. Study completion: The patient tolerated the procedure well. Transthoracic echocardiography. M-mode, complete 2D, complete spectral Doppler, and color Doppler. Height: Height: 70in. Weight: Weight: 206.6lb. Body mass index: BMI: 29.7kg/m^2. Body surface area: BSA: 2.12m^2. Patient status: Inpatient. CARDIAC ANATOMY LEFT VENTRICLE: The cavity size was normal. Wall thickness was normal. Systolic function was mildly reduced. The estimated ejection fraction was in the range of 45% to 50%. Wall motion was normal; there were no regional wall motion abnormalities. AORTIC VALVE: Trileaflet; normal thickness leaflets. Doppler: Transvalvular velocity was within the normal range. There was no stenosis. No regurgitation. Valve area: 3.06cm^2 (Vmax). Indexed valve area: 1.44cm^2/m^2 (Vmax). AORTA: Aortic root: The aortic root was normal in size. MITRAL VALVE: Mildly calcified annulus. Doppler: Transvalvular velocity was within the normal range. There was no evidence for stenosis. No regurgitation. Peak gradient: 2mm Hg (D). LEFT ATRIUM: The atrium was normal in size. RIGHT VENTRICLE: The cavity size was normal. Wall thickness was normal. PULMONIC VALVE: Doppler: Transvalvular velocity was within the normal range. There was no evidence for stenosis. No regurgitation. TRICUSPID VALVE: Structurally normal valve. Doppler: Transvalvular velocity was within the normal range. No regurgitation. PULMONARY ARTERY: The main pulmonary artery was normal-sized. Systolic pressure was within the normal range. RIGHT ATRIUM: The atrium was normal in size. PERICARDIUM: There was no pericardial effusion. SYSTEMIC VEINS: Inferior vena cava: The vessel was normal in size. Patient weight: 206.6lb _Ejection fraction:_ 65-75% _Fractional shortening:_ 32% up to 5Kg 5-11.5Kg 11.6-22.9Kg 23-45Kg 45-57Kg Aortic Root 7-13 <17 13-22 17-27 17-27 LA diam 6-13 <23 24-38 33-47 37-40 RVID 10-17 7-15 7-15 7-18 8-17 LVIDd 12-22 <32 24-38 33-47 37-40 LVPW 2-4 3-6 5-7 6-8 7-8 IVS 2-4 3-6 5-7 6-8 7-8 BASIC MEASUREMENTS ADULT NORMAL Left ventricle LV internal dimension, ED, chordal 50.6 mm 43-52 level, PLAX LV internal dimension, ES, chordal *42.4 mm 23-38 level, PLAX Fractional shortening, chordal level, *16 % >29 PLAX LV posterior wall thickness, ED 9.23 mm IVS/LVPW ratio, ED 1.17 <1.3 Ventricular septum Septal thickness, ED 10.8 mm Aortic valve Leaflet separation 21 mm 15-26 Right ventricle RV internal dimension, ED, PLAX *14.8 mm 19-38 BASIC MEASUREMENTS ADULT NORMAL Aortic valve Leaflet separation 21 mm 15-26 Aorta Root diameter, ED 30 mm 20-37 Left atrium Anterior-posterior dimension, ES 32 mm 19-40 Anterior-posterior dimension index, ES 1.51 cm/m^2 <2.2 LA/aortic root ratio 1.07 DOPPLER MEASUREMENTS ADULT NORMAL Main pulmonary artery Pressure, S 26 mm Hg =30 Aortic valve Peak velocity, S 121 cm/s Valve area, Vmax 3.06 cm^2 Valve area index, Vmax 1.44 cm^2/m^2 Mitral valve Peak E-wave velocity 78.5 cm/s Peak A-wave velocity 69.1 cm/s Deceleration time 201 ms 150-230 Peak gradient, D 2 mm Hg Peak E/A ratio 1.1 Tricuspid valve Regurgitant peak velocity 216 cm/s Peak RV-RA gradient, S 19 mm Hg Maximal regurgitant velocity 216 cm/s Systemic veins Estimated CVP 10 mm Hg Right ventricle RV pressure, S 29 mm Hg <30 Pulmonic valve Peak velocity, S 90.9 cm/s LEGEND: Mean values are shown as u=mean value. Asterisk (*) tyson values outside specified normal range. Prepared and signed by Janice Milligan [id number]
[2016-07-25 20:00] VITALS: BP 100/57; PULSE 88; RESP 20; TEMP 96.3; O2SAT 98
[2016-07-25] MEDS: PRAVASTATIN SOD 80 MG TAB PO SCH (20:58)
--- NOTE | 2016-07-25 21:29 | MB ---
cc: DINAH LUNA M.D., ANDREW H. M.D. DATE OF CONSULTATION: 07/25/2016 DATE OF 1950 REASON FOR CONSULTATION This is a 66-year-old gentleman who has recently undergone a resection on 07/20/2016 for what proved to be an adenocarcinoma of the rectum. The procedure was an explorative laparotomy with proctosigmoidectomy, low pelvic anastomosis, diverting ileostomy. BRIEF HISTORY This is a [facility] who [facility] For the past several weeks, he has had the onset of pelvic pain. At times this was more left-sided but it was also midline. It was not associated with diarrhea. He was investigated through the [facility] system and a CT scan was performed. He was thought to have a possible pelvic abscess and he was seen in [facility]. They did not feel they had the capability to deal with him and he has subsequently transferred to [facility]. Over the course of his hospitalization with his admission date 07/10/2016, he was treated for a possible pelvic abscess. He subsequently went on to undergo the surgery indicated above. His final pathology indicated an invasive moderately differentiated adenocarcinoma. Biopsy of the left abdominal wall revealed adenocarcinoma and biopsy of the abscessed abdominal cavity also showed moderately differentiated adenocarcinoma and the omentectomy was negative. The tumor size was 4 cm in the greatest dimension, tumor perforation was noted, tumor penetrated through the surface of the visceral peritoneum and directly invades the adjacent structures. The proximal and distal margins were uninvolved, circumferential margin was involved by invasive carcinoma and the mesenteric margin was uninvolved. The patient was pathologically staged as T4b N0. I discussed this gentleman with Dr. Hackett. He believes there is residual pelvic malignancy. The disease was attached to the sidewall including the psoas which was not resected. This gentleman is recovering well. He is anticipating discharge tomorrow. He is up on his feet and ambulating. His colostomy appears to be working and functioning normally. PAST MEDICAL HISTORY 1. Bilateral cataract surgery. 2. Previous rotator cuff repair. 3. Hypertension. 4. Hyperlipidemia. 5. COPD. ALLERGIES NONE KNOWN. SOCIAL HISTORY/FAMILY HISTORY This gentleman is . His was treated for breast cancer. He has children who live locally. He has smoked all of his adult years but did not smoke for the past three weeks. He also drinks vodka on a regular basis. SYSTEMS REVIEW This gentleman admits to symptoms of abdominal pain as indicated. He has noted a 10-12 pound weight loss prior to surgery. He does get short of breath with exertion. He denies cough or sputum. He denies chest pains, orthopnea and cardiovascular symptoms. HEAD, EYES, EARS, NOSE AND THROAT: No visual symptoms. No difficulty swallowing. No orthopnea. GASTROINTESTINAL: Noted in the history. He denied dysuria, hematuria or urgency. NEUROLOGIC: Denies neurologic complaints of memory loss, stroke, peripheral neuropathy. MUSCULOSKELETAL: No pain. ENDOCRINE: Negative. DERMATOLOGIC: Negative. PHYSICAL EXAMINATION GENERAL: Today on exam we have an alert, oriented gentleman in no immediate distress. He was able to ambulate with me in the love. VITAL SIGNS: He was afebrile with a blood pressure of 105/59, a pulse of 80 and regular, a respiratory rate of 20 and an O2 sat on room air of 98%. HEENT: There was no evidence of jaundice today. Conjunctivae and eyelids were normal and he had full EOMs. Inspection of his oral cavity was normal without mucosal surface lesions. NECK: There was no adenopathy in any region of his head and neck including supraclavicular regions. LUNGS: His lung licea were clear today without effusion. HEART: His heart sounds were normal without murmurs, rubs or bruits. He is barrel-chested. He has a horizontal incision across his entire abdomen and he has a colostomy in the right upper quadrant in the left lower zone just below his incision. There is marked erythema of the skin which the patient tells me is a reaction to the tape. His nino are place. There were no other specific findings. There is no ankle edema. NEUROLOGIC: Power and tone and gait were normal. ASSESSMENT In review of data today, I have reviewed the pathology report with this gentleman. We have discussed his diagnosis. I have told him that in general for this sort of cancer we would think of surgery and postoperative chemotherapy. Because there is residual disease in the pelvis, we do need to consider radiation treatment. At this time I believe he needs to recover from surgery for about four weeks before we consider initiating additional therapy. As an outpatient, I would like to have a PET-CT scan performed. If that PET-CT scan shows metastatic disease, then I would favor initiation with chemotherapy. If the PET-CT scan shows no evidence of metastases, then I would favor combination radiation treatment and low dose chemotherapy followed by chemotherapy if felt medically necessary. I have reviewed all of this with this patient and his . I will be asking to have him seen in followup in my office in one-to-two weeks so that we can initiate coordinating the PET-CT scan as this can be a lengthy process through the [facility]. Thank you again for asking us to see this gentleman and render an opinion and advice in his management. MD MERE Flores/BJLynette /6:02 PM /8:16 PM
--- NOTE | 2016-07-25 21:47 | MB ---
cc: VENU DE LA GARZA M.D. DATE OF CONSULTATION 07/25/16 REASON FOR CONSULTATION Oncology consulted to render opinion regarding patient with colon cancer. HISTORY OF PRESENT ILLNESS The patient is a very pleasant 66-year-old sent to the emergency room from the [facility] when he was found to have a 10 cm intra-abdominal abscess. He stated he had left lower quadrant pain radiating down the left groin for about a week before presentation. He had a CT-guided drain placement on July 11. He then underwent a rectal sigmoidectomy with ileostomy placement July 18. Pathology came back to be perforated colon cancer. He denies any fever, chills. He has lost about 10 pounds since his symptoms. He denies any headache or visual changes. Denied chest pain, palpitations, denied shortness of breath or cough. Denies nausea, vomiting. He started eating and tolerating well. He thinks he will be going home tomorrow. PAST MEDICAL HISTORY 1. Hypertension, 2. Hyperlipidemia, 3. Chronic obstructive pulmonary disease. PAST SURGICAL HISTORY Bilateral cataract surgery. FAMILY HISTORY One brother of ruptured aorta. One sister is alive. One daughter is healthy. SOCIAL HISTORY Drinks 4-5 vodka a day, smoked a pack a day for the last 40 years. He lives with his . ALLERGIES NO KNOWN DRUG ALLERGIES. MEDICATIONS Current, 1. Vancomycin 2. Nystatin 3. Protonix. 4. Reglan. 5. Atenolol. 6. Vitamin B12. 7. Folic acid. 8. Multivitamin. 9. Symbicort. 10. Pravastatin REVIEW OF SYSTEMS CONSTITUTIONAL: Has lost about 10 pounds. EYES: Denies any blurry vision, double vision. ENT: No mouth sores or voice changes. CARDIOVASCULAR: Denies chest pressure, palpitation RESPIRATORY: Denies shortness of breath or cough. GI: As above. : Denies dysuria, hematuria. MUSCULOSKELETAL: Denies any bone pain. HEMATOLOGIC: Negative. ENDOCRINE: Negative. DERMATOLOGIC: Negative. PSYCHIATRIC: Negative. NEUROLOGIC: Negative. PHYSICAL EXAMINATION VITAL SIGNS: Temperature 98.2, blood pressure 100/62, O2 saturation 97%. GENERAL: He is alert, oriented x3 in no acute distress. HEENT: Atraumatic, normocephalic. Pupils equal, round and reactive to light. Extraocular muscles intact. No scleral icterus. Oropharynx dry mucosa. No lesion. NECK: No thyromegaly. No palpable masses. LYMPHATICS: No palpable cervical, clavicular, axillary lymph node CARDIOVASCULAR: Regular S1-S2 no murmur. LUNGS: Clear to auscultation without any wheezing or rhonchi. ABDOMEN: Soft, positive bowel sounds. Ileostomy noted. There is some erythema around the suture line but no skin breakdown. There is a small wound in the left lower abdomen. EXTREMITIES: No cyanosis, clubbing. 1+ edema, no calf tenderness. BACK: No paravertebral tenderness. SKIN: No rash or petechiae except for the abdominal wall NEUROLOGIC: Nonfocal. LABORATORY DATA Reviewed ASSESSMENT 1. Colon cancer. Pathologic stage T4b N0 MX. He had a perforated colon cancer and presented with abdominal pain. CT showed 10 cm intra-abdominal abscess. He had a rectal sigmoidectomy with ileostomy placement July 18. I do not have his CEA level. Pathology showed 4 cm invasive moderately differentiated adenocarcinoma involving the left abdominal wall as well as abdominal wall abscess cavity. Biopsy of omentum was negative. No lymphovascular invasion noted. The pathology report did not mention number of lymph nodes resected. He is healing well from the surgery. I had extensive discussion with the patient. I went over the pathologic finding, probable staging and treatment option. The patient thinks that he will be going home tomorrow. I am going to check his CEA level. We will need to verify with pathology regarding number of lymph nodes resected. I would recommend outpatient PET CT scan. If there is no evidence of metastatic disease, I recommend six months of adjuvant FOLFOX chemotherapy. We may also have to discuss with radiology to see if there is any role in adjuvant radiation given the perforated colon cancer involving the abdominal wall. The patient is a . He is going to follow up with his physician at the [facility] to be referred for further treatment. He had some questions today which were answered. 2. Leukocytosis due to leukemoid reaction. His WBC has trended down with antibiotic. 3. Anemia due to blood loss. Hemoglobin is relatively stable. We will check an iron study. 4. Hypertension, stable 5. COPD, stable 6. Hyperlipidemia. RECOMMENDATIONS 1. Extensive discussion with the patient as above. 2. Check CEA and iron study 3. Recommend outpatient PET CT scan. 4. We will need to verify with pathology regarding number of lymph nodes resected. 5. Recommend a 6-month adjuvant chemotherapy if he does not have distant metastasis. 6. May also need a adjuvant radiation given the abdominal wall involvement. 7. He will follow up with [facility] after discharge to get a referral for treatment. Thank you ____ for asking us see this patient MD SARAHY Abdullahi/ /8:13 PM /9:24 PM MTDD
[2016-07-26] VITALS: BP 116/60; PULSE 86; RESP 20; TEMP 96.9; O2SAT 99
[2016-07-26] MEDS: [UNRECOGNIZED DRUG - REMARK] IVF SCH ×3 (05:00→20:18)
[2016-07-26] MEDS: NYSTATIN 100,000 U/GM PWD 15 GM BTL TOPICAL SCH ×3 (05:00→20:18)
[2016-07-26] MEDS: INSULIN ASPART SUPPLEMENTAL SCALE SQ SCH ×4 (05:08→20:04)
[2016-07-26] MEDS: oxyCODONE/ACETAMINOPHEN 10 MG/325 MG TAB PO PRN ×3 (05:15→18:11)
[2016-07-26 05:29] LABS: AUTOMATED NEUTROPHIL # 10.2 TH/MM3 (1.8-7.7); BASOPHIL # 0.1 TH/MM3 (0-0.2); BASOPHIL % 0.5 % (0.0-2.0); EOSINOPHIL # 0.5 TH/MM3 (0-0.4); EOSINOPHIL % 3.7 % (0.0-4.0); HEMATOCRIT 24.2 % (39.0-51.0); HEMO FLAGS DIFF FINAL; LYMPH % 14.8 % (9.0-44.0); LYMPHOCYTE # 2.1 TH/MM3 (1.0-4.8); MEAN CELL VOLUME 88.5 FL (80.0-100.0); MEAN CORPUSCULAR HGB CONC 33.9 % (32.0-36.0); PLATELET COUNT 280 TH/MM3 (150-450); RED BLOOD COUNT 2.73 MIL/MM3 (4.50-5.90); RED CELL DISTRIBUTION WIDTH 16.2 % (11.6-17.2)
[2016-07-26 05:52] LABS: ANION GAP 10 MEQ/L (5-15); BICARBONATE 21.8 MEQ/L (21.0-32.0); BLOOD UREA NITROGEN 12 MG/DL (7-18); CHLORIDE 105 MEQ/L (98-107); GLOMERULAR FILTRATION RATE 62 ML/MIN (>89); POTASSIUM 3.3 MEQ/L (3.5-5.1); SODIUM (NA) 137 MEQ/L (136-145); TRANSFERRIN IRON PROFILE 80 MG/DL (200-360)
[2016-07-26 05:54] LABS: FERRITIN 783 NG/ML (26-388)
[2016-07-26 08:00] VITALS: BP 110/53; PULSE 81; RESP 18; TEMP 97.9; O2SAT 97
[2016-07-26] MEDS: BUDESONIDE-FORMOTEROL 160/4.5 MCG INHALER INH SCH ×2 (08:10→20:02)
[2016-07-26] MEDS: PANTOPRAZOLE SOD 40 MG DELAYED RELEASE TAB PO SCH (08:20)
[2016-07-26] MEDS: CYANOCOBALAMIN 1,000 MCG TAB PO SCH (08:21)
[2016-07-26] MEDS: ATENOLOL 50 MG TAB PO SCH (08:21)
[2016-07-26] MEDS: FOLIC ACID 1 MG TAB PO SCH (08:21)
[2016-07-26] MEDS: METOCLOPRAMIDE HCL 10 MG/2 ML VIAL IVS SCH ×2 (08:21→20:01)
[2016-07-26] MEDS: MULTIVITAMINS/MINERALS THERAPEUTIC TAB PO SCH (08:21)
[2016-07-26] MEDS: HEPARIN SODIUM - SQ 10,000 UNITS/ML VIAL SQ SCH ×2 (08:22→20:01)
--- NOTE | 2016-07-26 08:54 | HHI.PR ---
Subjective Remarks POD#8 s/p perforated cancer - LAR, ileo comfortable, wants to go home Objective Vital Signs Date Time Temp Pulse Resp B/P Pulse Ox O2 Delivery O2 Flow Rate FiO2 07/26/16 08:00 97.9 81 18 110/53 97 07/26/16 00:00 96.9 86 20 116/60 99 07/25/16 20:00 96.3 88 20 100/57 98 07/25/16 16:00 98.2 90 20 100/62 97 07/25/16 12:00 96.8 80 20 105/59 98 I/O 07/25/16 07/25/16 07/25/16 07/26/16 07/26/16 07/26/16 07:00 15:00 23:00 07:00 15:00 23:00 Intake Total 923 ml 1230 ml 120 ml 360 ml Output Total 1050 ml 550 ml 400 ml 600 ml Balance -127 ml 680 ml -280 ml -240 ml Intake Oral 240 ml 480 ml 120 ml 360 ml IV Total 683 ml 750 ml 0 ml 0 ml Output Urine Total 750 ml 350 ml 300 ml 400 ml Stool Total 300 ml 200 ml 100 ml 200 ml Result Diagram: 07/26/16 0500 07/26/[address] guided drain placement to left lower quadrant diverticular abscess on 07/11. Exchange on 07/14 by IR. Objective Remarks Abdomen soft, obese, tender Stoma pink, functional Wound erythematous - opened both sides and middle moderate serous, small amount purulence Candidiasis improving Assessment and Plan Assessment and Plan Wound opened, cultured, packed Can go home if C available tomorrow for daily wet-dry dressing changes. If not, will delay discharge Antibiotics per Ryann Noel MD Jul 26, 2016 08:54
[2016-07-26] MEDS: VANCOMYCIN INJ 1,500 MG in SODIUM CHLORID 0.9% 500 ML INJ 500 ML IV SCH (11:25)
[2016-07-26 12:00] VITALS: BP 93/54; PULSE 94; RESP 17; TEMP 98.2; O2SAT 97
--- NOTE | 2016-07-26 12:14 | HHI.PR ---
Subjective Remarks Follow-up intra-abdominal abscess and now new diagnosis of invasive differentiated adenocarcinoma 07/25/16-patient seen and examined; reports some shortness of breath with ambulation/exertion; so complains of bilateral lower extremity edema. Denies any chest pain. Currently afebrile. Patient also complains of no output in ileostomy bag 2 hours . by the bedside. 07/26/16-patient seen and examined, very upset about his diagnosis and about the fact that he is not being discharged today. Otherwise denies any abdominal pain and currently afebrile. He was seen yesterday by both medical oncology as well as radiation oncology Objective Vitals Vital Signs Date Time Temp Pulse Resp B/P Pulse Ox O2 Delivery O2 Flow Rate FiO2 07/26/16 08:00 97.9 81 18 110/53 97 07/26/16 00:00 96.9 86 20 116/60 99 07/25/16 20:00 96.3 88 20 100/57 98 07/25/16 16:00 98.2 90 20 100/62 97 I/O 07/25/16 07/25/16 07/25/16 07/26/16 07/26/16 07/26/16 06:59 14:59 22:59 06:59 14:59 22:59 Intake Total 923 ml 1230 ml 120 ml 360 ml Output Total 1050 ml 550 ml 400 ml 600 ml Balance -127 ml 680 ml -280 ml -240 ml Intake Oral 240 ml 480 ml 120 ml 360 ml IV Total 683 ml 750 ml 0 ml 0 ml Output Urine Total 750 ml 350 ml 300 ml 400 ml Stool Total 300 ml 200 ml 100 ml 200 ml Result Diagram: 07/26/16 0500 07/26/16 0500 Objective Remarks GENERAL: No acute distress SKIN: Warm and dry. HEAD: Normocephalic. EYES: No scleral icterus. No injection or drainage. NECK: Supple, trachea midline. No JVD or lymphadenopathy. CARDIOVASCULAR: Regular rate and rhythm without murmurs, gallops, or rubs. RESPIRATORY: Breath sounds equal bilaterally. No accessory muscle use. GASTROINTESTINAL: Abdomen soft, non-tender, nondistended. Surgical incision healing. Ileostomy intact MUSCULOSKELETAL: No cyanosis, or edema. BACK: Nontender without obvious deformity. No CVA tenderness. Procedures 07/18/16 Exploratory laparotomy with proctosigmoidectomy, low pelvic anastomosis , diverting ileostomy, on-table bowel prep. 1. Cystoscopy. 2. Placement of ureteral catheters, bilaterally A/P Problem List: (1) Diverticulitis of intestine with abscess ICD Code: K57.80 Status: Acute (2) Intra-abdominal abscess ICD Code: K65.1 Status: Acute (3) Abdominal pain ICD Code: R10.9 Status: Resolved (4) Failure of outpatient treatment ICD Code: Z78.9 Status: Resolved (5) HTN (hypertension) ICD Code: I10 Status: Chronic (6) COPD (chronic obstructive pulmonary disease) ICD Code: J44.9 Status: Chronic (7) Tobacco abuse ICD Code: Z72.0 Status: Chronic (8) Adenocarcinoma, colon ICD Code: C18.9 Status: Acute Assessment and Plan 66-year-old male with Intra-Abdominal abscess: outpatient CT Abd/Pelvis w/ 10cm intra-abdominal abscess. 07/11CT-guided drainage of intra-abdominal abscess, with drain placement. S/p surgery 07/18. s/p Cipro and Flagyl per infectious disease and continue vancomycin. Pathology report positive for invasive moderately differentiated adenocarcinoma of the colon Adenocarcinoma of the colon: Appreciate input from medical oncology as well as radiation oncology, however treatment would be outpatients likely after patient surgically stable. 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 lifestyle modifications. Continue insulin sliding scale. However upon discharge was start patient on metformin 500 mg by mouth twice a day. Leukocytosis: May be a stress reaction. Afebrile. Blood cultures negative. Chest x-ray unremarkable. No growth in urine culture. antibiotics per ID. HTN- BP soft, continue atenolol. Hold losartan. Tobacco Abuse Pt counselled. - Offered NicoDerm if needed. Hypokalemia S/t poor PO intake. - replete and monitor. Acute renal insufficiency: Resolved Lower extremity swelling/edema: Status post Lasix IV 20 mg 1 07/25/16; 2-D echo with EF of 45-50% with mildly reduced systolic function . Check BNP DVT Prophylaxis: SCD/Teds. patient is ambulatory.anticoagulation as per surgical service. Problem Qualifiers (1) Diverticulitis of intestine with abscess: Qualified Code: K57.20 - Diverticulitis of large intestine with abscess without bleeding (2) Abdominal pain: Qualified Code: R10.32 - Left lower quadrant pain Wade Newman MD Jul 26, 2016 12:14 Wade Newman MD Jul 26, 2016 12:14
--- NOTE | 2016-07-26 15:13 | PD.ONC.PN ---
Subjective Subjective Remarks Afebrile overnight. Pt sitting up on side of bed with at bedside. His pain is controlled with prn medications. He is looking forward to going home. Asking questions about future treatments. Objective Data Date Time Temp Pulse Resp B/P Pulse Ox O2 Delivery O2 Flow Rate FiO2 07/26/16 12:00 98.2 94 17 93/54 97 07/26/16 08:00 97.9 81 18 110/53 97 07/26/16 00:00 96.9 86 20 116/60 99 07/25/16 20:00 96.3 88 20 100/57 98 07/25/16 16:00 98.2 90 20 100/62 97 07/26/16 07/26/16 07/26/16 07:00 15:00 23:00 Intake Total 360 ml 1055 ml Output Total 600 ml 650 ml Balance -240 ml 405 ml Result Diagram: 07/26/16 0500 07/26/16 0500 Laboratory Results Laboratory Tests Test 07/26/16 05:00 White Blood Count 14.0 TH/MM3 Red Blood Count 2.73 MIL/MM3 Hemoglobin 8.2 GM/DL Hematocrit 24.2 % Mean Corpuscular Volume 88.5 FL Mean Corpuscular Hemoglobin 30.0 PG Mean Corpuscular Hemoglobin 33.9 % Concent Red Cell Distribution Width 16.2 % Platelet Count 280 TH/MM3 Mean Platelet Volume 8.0 FL Neutrophils (%) (Auto) 73.0 % Lymphocytes (%) (Auto) 14.8 % Monocytes (%) (Auto) 8.0 % Eosinophils (%) (Auto) 3.7 % Basophils (%) (Auto) 0.5 % Neutrophils # (Auto) 10.2 TH/MM3 Lymphocytes # (Auto) 2.1 TH/MM3 Monocytes # (Auto) 1.1 TH/MM3 Eosinophils # (Auto) 0.5 TH/MM3 Basophils # (Auto) 0.1 TH/MM3 CBC Comment DIFF FINAL Differential Comment Sodium Level 137 MEQ/L Potassium Level 3.3 MEQ/L Chloride Level 105 MEQ/L Carbon Dioxide Level 21.8 MEQ/L Anion Gap 10 MEQ/L Blood Urea Nitrogen 12 MG/DL Creatinine 1.17 MG/DL Estimat Glomerular Filtration 62 ML/MIN Rate Random Glucose 85 MG/DL Calcium Level 7.8 MG/DL Iron Level 10 MCG/DL Total Iron Binding Capacity 112 MCG/DL Percent Iron Saturation 8.9 % Ferritin 783 NG/ML B-Type Natriuretic Peptide 317 PG/ML Carcinoembryonic Antigen 1.4 NG/ML Administered Medications Medications (Trade) Dose Ordered Sig/Cori Route PRN Reason Start Time Stop Time Status Last Admin Dose Admin Ondansetron HCl (Zofran Inj) 4 mg Q6H PRN IVP NAUSEA OR VOMITING 07/10/16 19:45 07/17/16 17:34 Budesonide/ Formoterol Fumarate (Symbicort 160-4.5 Inh) 2 puff Q12HR INH 07/10/16 21:00 07/26/16 08:10 Cyanocobalamin (Vitamin B12) 500 mcg DAILY PO 07/11/16 09:00 07/26/16 08:21 Folic Acid (Folate) 1 mg DAILY PO 07/11/16 09:00 07/26/16 08:21 Losartan Potassium (Cozaar) 100 mg DAILY PO 07/11/16 09:00 Hold 07/12/16 09:24 Multivitamins/ Minerals Therapeutic (Theragran M Tab) 1 tab DAILY PO 07/11/16 09:00 07/26/16 08:21 Pravastatin Sodium (Pravachol) 80 mg HS PO 07/10/16 21:00 07/25/16 20:58 Morphine Sulfate (Morphine Inj) 2 mg Q3H PRN IV PUSH PAIN 6-10 07/10/16 20:00 07/20/16 05:04 Zolpidem Tartrate (Ambien) 5 mg HS PRN PO SLEEP 07/10/16 20:00 07/23/16 23:01 Lorazepam (Ativan Inj) 1 mg Q3H PRN IV PUSH WITHDRAWAL/AGITATION 07/10/16 20:00 07/17/16 19:38 Atenolol (Tenormin) 50 mg DAILY PO 07/15/16 09:00 07/25/16 08:55 Pantoprazole Sodium (Protonix) 40 mg DAILY PO 07/19/16 09:00 07/26/16 08:20 Metoclopramide HCl 10 mg 10 mg Q12HR IVS 07/18/16 21:00 07/26/16 08:21 Potassium Chloride (KCl 20 Meq Premix Inj) 100 ml @ 50 mls/hr UNSCH PRN IV POTASSIUM 3 TO 3.5 07/18/16 19:30 07/26/16 06:06 Heparin Sodium (Porcine) (Heparin Inj) 5,000 units Q12HR SQ 07/20/16 10:30 07/26/16 08:22 IV Flush (NS Flush) See Protocol DAILY IVF 07/22/16 09:00 07/25/16 08:57 Heparin Sodium (Porcine) (Heparin Central Flush) See Protocol DAILY IVF 07/22/16 09:00 07/26/16 08:22 IV Flush (NS Flush) See Protocol Q8HR IVF 07/21/16 14:00 07/26/16 05:00 Loperamide HCl (Imodium) 2 mg Q6H PRN PO DIARRHEA 07/23/16 11:30 07/23/16 23:08 Nystatin (Mycostatin Powder) 1 applic Q8HR TOPICAL 07/24/16 22:00 07/26/16 14:11 Oxycodone/ Acetaminophen 2 tab 2 tab Q6H PRN PO BREAKTHROUGH PAIN 07/24/16 20:00 07/26/16 11:25 Vancomycin HCl/ Sodium Chloride (Vancomycin Inj/ NS 500 ml Inj) 515 ml @ 250 mls/hr Q24H IV 07/25/16 11:00 07/26/16 11:25 Objective Remarks GENERAL: Overweight, middle aged male sitting on side of bed in no distress. SKIN: Warm and dry. HEAD: Normocephalic. EYES: No injection or drainage. NECK: Supple, trachea midline. CARDIOVASCULAR: +S1/S2. No murmur appreciated. RESPIRATORY: Lungs clear to auscultation. Breathing easy and unlabored. GASTROINTESTINAL: Transverse abdominal incision with ileostomy bag to RLQ. Incision well approximated. Covered with dressings. Dry and intact. +BS. EXTREMITIES: 1+ ankle edema. NEUROLOGICAL: No obvious focal deficit. Awake, alert, and oriented x3. Assessment/Plan Problem List: (1) Adenocarcinoma, colon Status: Acute Plan: -- Path report on 07/22 shows moderately differentiated adenocarcinoma. -- CEA level low at 1.4; however this was drawn post surgery. Hx/Workup: Pt had a CT of the abdomen/pelvis at the [facility] on 07/09 which showed a 10cm intra-abdominal abscess. He was sent to the ER on 07/10 for a colorectal surgical evaluation. On 07/[address] guided drain placed. He then had a rectal sigmoidectomy with ileostomy placement on 07/18. Pathology proved to be perforated colon cancer. He has lost about 10 pounds since his symptoms began. Pathologic stage T4b N0 MX. Assessment 66 y/o male who was directed to the ED from the [place] clinic for 10cm intra- abdominal mass. Plan 1. Once pt is healed (at least 4 weeks) we will be able to continue with an outpatient PET scan to look for metastases. 2. Call pathology on Thursday to verify number of lymph nodes resected. 3. If there is no distant mets, he would be a candidate for 6 months of adjuvant chemotherapy with radiation. Dr Caicedo following. 4. Pt should followup to the [place] clinic after discharge to get referral to our office. 5. Supportive care. Attending Statement The exam, history, and the medical decision-making described in the above note were completed with the assistance of the mid-level provider. I reviewed and agree with the findings presented. I attest that I had a [id number] encounter with the patient on the same day, and personally performed and documented my assessment and findings in the medical record. Surgery has to reopen part of the abdominal incision site . Discussed pathology and treatment options again with pt's at the bedside. Need outpt f/u with [place] physician for referral to oncology for treatment. Will need PET/CT in a few weeks when the wound healed. CEA not elevated. Iron study difficult to interpret and likely due to inflammatory process. Brigitte Monson Jul 26, 2016 15:13 Jules Lawrence MD Jul 26, 2016 15:27
[2016-07-26 16:00] VITALS: BP 108/58; PULSE 88; RESP 18; TEMP 98.4; O2SAT 97
[2016-07-26 20:03] VITALS: BP 110/54; PULSE 90; RESP 18; TEMP 98.9; O2SAT 97
[2016-07-26] MEDS: PRAVASTATIN SOD 80 MG TAB PO SCH (20:17)
[2016-07-26 23:44] VITALS: BP 126/76; PULSE 90; RESP 18; TEMP 98.1; O2SAT 99
[2016-07-27] MEDS: ZOLPIDEM TARTRATE 5 MG TAB PO PRN ×2 (00:33→22:18)
[2016-07-27] MEDS: oxyCODONE/ACETAMINOPHEN 10 MG/325 MG TAB PO PRN ×7 (00:34→22:23)
[2016-07-27] MEDS: INSULIN ASPART SUPPLEMENTAL SCALE SQ SCH ×4 (04:40→20:00)
[2016-07-27] MEDS: NYSTATIN 100,000 U/GM PWD 15 GM BTL TOPICAL SCH ×3 (04:41→20:01)
[2016-07-27] MEDS: [UNRECOGNIZED DRUG - REMARK] IVF SCH ×3 (05:49→20:01)
[2016-07-27 06:25] LABS: AUTOMATED NEUTROPHIL # 10.1 TH/MM3 (1.8-7.7); BASOPHIL # 0.1 TH/MM3 (0-0.2); BASOPHIL % 0.9 % (0.0-2.0); EOSINOPHIL # 0.4 TH/MM3 (0-0.4); EOSINOPHIL % 3.2 % (0.0-4.0); HEMATOCRIT 22.4 % (39.0-51.0); HEMO FLAGS DIFF FINAL; LYMPH % 14.7 % (9.0-44.0); MEAN CELL VOLUME 88.7 FL (80.0-100.0); MEAN CORPUSCULAR HGB CONC 33.8 % (32.0-36.0); MONO % 6.7 % (0.0-8.0); NEUT % 74.5 % (16.0-70.0); PLATELET COUNT 228 TH/MM3 (150-450); RED BLOOD COUNT 2.53 MIL/MM3 (4.50-5.90); RED CELL DISTRIBUTION WIDTH 16.3 % (11.6-17.2); WHITE BLOOD COUNT 13.6 TH/MM3 (4.0-11.0)
[2016-07-27 06:46] LABS: ALT (GPT) 12 U/L (12-78); ANION GAP 9 MEQ/L (5-15); AST (GOT) 16 U/L (15-37); BICARBONATE 21.6 MEQ/L (21.0-32.0); BLOOD UREA NITROGEN 10 MG/DL (7-18); CHLORIDE 107 MEQ/L (98-107); GLOMERULAR FILTRATION RATE 71 ML/MIN (>89); POTASSIUM 3.5 MEQ/L (3.5-5.1); SODIUM (NA) 138 MEQ/L (136-145)
[2016-07-27 06:49] LABS: ALKALINE PHOSPHATASE 71 U/L (45-117); TOTAL BILIRUBIN ADULT 0.3 MG/DL (0.2-1.0)
[2016-07-27 08:00] VITALS: BP 112/52; PULSE 84; RESP 20; TEMP 97.9; O2SAT 95
[2016-07-27] MEDS: PANTOPRAZOLE SOD 40 MG DELAYED RELEASE TAB PO SCH (08:36)
[2016-07-27] MEDS: MULTIVITAMINS/MINERALS THERAPEUTIC TAB PO SCH (08:36)
[2016-07-27] MEDS: HEPARIN SODIUM - SQ 10,000 UNITS/ML VIAL SQ SCH ×2 (08:36→20:00)
[2016-07-27] MEDS: FOLIC ACID 1 MG TAB PO SCH (08:37)
[2016-07-27] MEDS: BUDESONIDE-FORMOTEROL 160/4.5 MCG INHALER INH SCH ×2 (08:37→19:59)
[2016-07-27] MEDS: METOCLOPRAMIDE HCL 10 MG/2 ML VIAL IVS SCH ×2 (08:37→19:59)
[2016-07-27] MEDS: CYANOCOBALAMIN 1,000 MCG TAB PO SCH (08:37)
[2016-07-27] MEDS: ATENOLOL 50 MG TAB PO SCH (08:38)
[2016-07-27] MEDS: VANCOMYCIN INJ 1,500 MG in SODIUM CHLORID 0.9% 500 ML INJ 500 ML IV SCH (08:56)
--- NOTE | 2016-07-27 09:11 | PD.ONC.PN ---
Subjective Subjective Remarks Afebrile overnight. Pt denies pain, chills or SOB. Per , he has been hallucinating this am. Objective Data Date Time Temp Pulse Resp B/P Pulse Ox O2 Delivery O2 Flow Rate FiO2 07/27/16 08:00 97.9 84 20 112/52 95 07/26/16 23:44 98.1 90 18 126/76 99 07/26/16 20:03 98.9 90 18 110/54 97 07/26/16 16:00 98.4 88 18 108/58 97 07/26/16 12:00 98.2 94 17 93/54 97 07/27/16 07/27/16 07/27/16 07:00 15:00 23:00 Intake Total 360 ml 120 ml Output Total 300 ml Balance 60 ml 120 ml Result Diagram: 07/27/16 0550 07/27/16 0550 Laboratory Results Laboratory Tests Test 07/27/16 05:50 White Blood Count 13.6 TH/MM3 Red Blood Count 2.53 MIL/MM3 Hemoglobin 7.6 GM/DL Hematocrit 22.4 % Mean Corpuscular Volume 88.7 FL Mean Corpuscular Hemoglobin 30.0 PG Mean Corpuscular Hemoglobin 33.8 % Concent Red Cell Distribution Width 16.3 % Platelet Count 228 TH/MM3 Mean Platelet Volume 8.4 FL Neutrophils (%) (Auto) 74.5 % Lymphocytes (%) (Auto) 14.7 % Monocytes (%) (Auto) 6.7 % Eosinophils (%) (Auto) 3.2 % Basophils (%) (Auto) 0.9 % Neutrophils # (Auto) 10.1 TH/MM3 Lymphocytes # (Auto) 2.0 TH/MM3 Monocytes # (Auto) 0.9 TH/MM3 Eosinophils # (Auto) 0.4 TH/MM3 Basophils # (Auto) 0.1 TH/MM3 CBC Comment DIFF FINAL Differential Comment Sodium Level 138 MEQ/L Potassium Level 3.5 MEQ/L Chloride Level 107 MEQ/L Carbon Dioxide Level 21.6 MEQ/L Anion Gap 9 MEQ/L Blood Urea Nitrogen 10 MG/DL Creatinine 1.05 MG/DL Estimat Glomerular Filtration 71 ML/MIN Rate Random Glucose 94 MG/DL Calcium Level 8.0 MG/DL Total Bilirubin 0.3 MG/DL Aspartate Amino Transf 16 U/L (AST/SGOT) Alanine Aminotransferase 12 U/L (ALT/SGPT) Alkaline Phosphatase 71 U/L Total Protein 5.9 GM/DL Albumin 1.8 GM/DL Culture Results Microbiology Date/Time Procedure Status Source Growth 07/26/16 10:53 Gram Stain - Final Resulted Wound Abdomen 07/26/16 10:53 Wound Culture Resulted Wound Abdomen Pending Administered Medications Medications (Trade) Dose Ordered Sig/Cori Route PRN Reason Start Time Stop Time Status Last Admin Dose Admin Ondansetron HCl (Zofran Inj) 4 mg Q6H PRN IVP NAUSEA OR VOMITING 07/10/16 19:45 07/17/16 17:34 Budesonide/ Formoterol Fumarate (Symbicort 160-4.5 Inh) 2 puff Q12HR INH 07/10/16 21:00 07/27/16 08:37 Cyanocobalamin (Vitamin B12) 500 mcg DAILY PO 07/11/16 09:00 07/27/16 08:37 Folic Acid (Folate) 1 mg DAILY PO 07/11/16 09:00 07/27/16 08:37 Losartan Potassium (Cozaar) 100 mg DAILY PO 07/11/16 09:00 Hold 07/12/16 09:24 Multivitamins/ Minerals Therapeutic (Theragran M Tab) 1 tab DAILY PO 07/11/16 09:00 07/27/16 08:36 Pravastatin Sodium (Pravachol) 80 mg HS PO 07/10/16 21:00 07/26/16 20:17 Morphine Sulfate (Morphine Inj) 2 mg Q3H PRN IV PUSH PAIN 6-10 07/10/16 20:00 07/20/16 05:04 Zolpidem Tartrate (Ambien) 5 mg HS PRN PO SLEEP 07/10/16 20:00 07/27/16 00:33 Lorazepam (Ativan Inj) 1 mg Q3H PRN IV PUSH WITHDRAWAL/AGITATION 07/10/16 20:00 07/17/16 19:38 Atenolol (Tenormin) 50 mg DAILY PO 07/15/16 09:00 07/27/16 08:38 Pantoprazole Sodium (Protonix) 40 mg DAILY PO 07/19/16 09:00 07/27/16 08:36 Metoclopramide HCl 10 mg 10 mg Q12HR IVS 07/18/16 21:00 07/27/16 08:37 Potassium Chloride (KCl 20 Meq Premix Inj) 100 ml @ 50 mls/hr UNSCH PRN IV POTASSIUM 3 TO 3.5 07/18/16 19:30 07/26/16 06:06 Heparin Sodium (Porcine) (Heparin Inj) 5,000 units Q12HR SQ 07/20/16 10:30 07/27/16 08:36 IV Flush (NS Flush) See Protocol DAILY IVF 07/22/16 09:00 07/27/16 08:37 Heparin Sodium (Porcine) (Heparin Central Flush) See Protocol DAILY IVF 07/22/16 09:00 07/27/16 08:36 IV Flush (NS Flush) See Protocol Q8HR IVF 07/21/16 14:00 07/27/16 05:49 Loperamide HCl (Imodium) 2 mg Q6H PRN PO DIARRHEA 07/23/16 11:30 07/23/16 23:08 Nystatin (Mycostatin Powder) 1 applic Q8HR TOPICAL 07/24/16 22:00 07/27/16 04:41 Oxycodone/ Acetaminophen 2 tab 2 tab Q6H PRN PO BREAKTHROUGH PAIN 07/24/16 20:00 07/27/16 05:56 Vancomycin HCl/ Sodium Chloride (Vancomycin Inj/ NS 500 ml Inj) 515 ml @ 250 mls/hr Q24H IV 07/25/16 11:00 07/27/16 08:56 Objective Remarks GENERAL: Overweight male, lying in bed in no acute distress. SKIN: Warm and dry. HEAD: Normocephalic. EYES: No injection or drainage. NECK: Supple, trachea midline. CARDIOVASCULAR: +S1/S2. RESPIRATORY: Breath sounds equal bilaterally. No accessory muscle use. GASTROINTESTINAL: Transverse incision across abdomen with nino in place. Multiple bandages in place. +Erythema. Ileostomy bag in place with stoma pink. EXTREMITIES: No edema. NEUROLOGICAL: Normal speech. Moving all extremities independently. Slightly confused today. Assessment/Plan Problem List: (1) Adenocarcinoma, colon Status: Acute Plan: 07/27/16: Pt's incision seems somewhat more erythremic today than yesterday. Concerning for another infection given pt's slightly confused status this am. Appreciate recommendations from ID, surgery. -- Path report on 07/22 shows moderately differentiated adenocarcinoma. -- CEA level low at 1.4; however this was drawn post surgery. Hx/Workup: Pt had a CT of the [place] on 07[place]09 which showed a 10cm intra-abdominal abscess. He was sent to the ER on 07/10 for a colorectal surgical evaluation. On 07/[address] guided drain placed. He then had a rectal sigmoidectomy with ileostomy placement on 07/18. Pathology proved to be perforated colon cancer. He has lost about 10 pounds since his symptoms began. Pathologic stage T4b N0 MX. (2) Anemia in chronic illness Status: Chronic Plan: 07/27/16: Hgb 7.6 today. Assessment 66 y/o male who was directed to the ED from the [facility] for 10cm intra- abdominal mass. Plan 1. Continue Abx per ID, surgery input. 2. If there is no distant mets, he would be a candidate for 6 months of adjuvant chemotherapy with radiation. Dr Caicedo following. 3. Once pt is healed (at least 4 weeks) we will be able to continue with an outpatient PET scan to look for metastases. 4. Supportive care. Attending Statement The exam, history, and the medical decision-making described in the above note were completed with the assistance of the mid-level provider. I reviewed and agree with the findings presented. I attest that I had a [id number] encounter with the patient on the same day, and personally performed and documented my assessment and findings in the medical record. Wound is still erythematous. Continue wound care and abx per surgery. Episodes of hallucination and drowsiness, possibly due to pain meds and infection. Primary team is addressing. Pt's has questions regarding chemotherapy and her questions were answered. Brigitte Monson Jul 27, 2016 09:11 Jules Lawrence MD Jul 27, 2016 11:37
--- NOTE | 2016-07-27 10:59 | HHI.PR ---
Subjective Remarks Follow-up intra-abdominal abscess and now new diagnosis of invasive differentiated adenocarcinoma 07/25/16-patient seen and examined; reports some shortness of breath with ambulation/exertion; so complains of bilateral lower extremity edema. Denies any chest pain. Currently afebrile. Patient also complains of no output in ileostomy bag 2 hours . by the bedside. 07/26/16-patient seen and examined, very upset about his diagnosis and about the fact that he is not being discharged today. Otherwise denies any abdominal pain and currently afebrile. He was seen yesterday by both medical oncology as well as radiation oncology 07/27/16-patient seen and examined, per he continues had episodes of hallucinations last night as well as this morning. Appears stable alert and oriented during my exam. Objective Vitals Vital Signs Date Time Temp Pulse Resp B/P Pulse Ox O2 Delivery O2 Flow Rate FiO2 07/27/16 08:00 97.9 84 20 112/52 95 07/26/16 23:44 98.1 90 18 126/76 99 07/26/16 20:03 98.9 90 18 110/54 97 07/26/16 16:00 98.4 88 18 108/58 97 07/26/16 12:00 98.2 94 17 93/54 97 I/O 07/26/16 07/26/16 07/26/16 07/27/16 07/27/16 07/27/16 06:59 14:59 22:59 06:59 14:59 22:59 Intake Total 360 ml 1055 ml 580 ml 360 ml 120 ml Output Total 600 ml 650 ml 800 ml 300 ml Balance -240 ml 405 ml -220 ml 60 ml 120 ml Intake Oral 360 ml 480 ml 580 ml 360 ml 120 ml IV Total 0 ml 575 ml Output Urine Total 400 ml 450 ml 500 ml Stool Total 200 ml 200 ml 300 ml 300 ml # Voids 2 Result Diagram: 07/27/16 0550 07/27/16 0550 Imaging Last Impressions Chest X-Ray 07/23/16 0000 Signed Impressions: Service Date/Time: Saturday, July 23, 2016 10:12 - CONCLUSION: No acute disease. Jonathan Hatch Jr., MD Upper Extremity Ultrasound 07/21/16 0000 Signed Impressions: Service Date/Time: Thursday, July 21, 2016 19:11 - CONCLUSION: Thrombosed cephalic vein. K. Pedro Aguilar MD Catheter Change 07/14/16 0000 Signed Impressions: Service Date/Time: Thursday, July 14, 2016 16:02 - CONCLUSION: Uncomplicated tube exchange as above. Rudi Resendez MD Abscess Drainage CT 07/11/16 0000 Signed Impressions: Service Date/Time: Monday, July 11, 2016 14:14 - CONCLUSION: Uncomplicated CT guided drainage. Reece Elkins MD Objective Remarks GENERAL: No acute distress SKIN: Warm and dry. HEAD: Normocephalic. EYES: No scleral icterus. No injection or drainage. NECK: Supple, trachea midline. No JVD or lymphadenopathy. CARDIOVASCULAR: Regular rate and rhythm without murmurs, gallops, or rubs. RESPIRATORY: Breath sounds equal bilaterally. No accessory muscle use. GASTROINTESTINAL: Abdomen soft, non-tender, nondistended. Surgical incision healing however worsening surrounding erythema. Ileostomy intact MUSCULOSKELETAL: No cyanosis, or edema. BACK: Nontender without obvious deformity. No CVA tenderness. Procedures 07/18/16 Exploratory laparotomy with proctosigmoidectomy, low pelvic anastomosis , diverting ileostomy, on-table bowel prep. 1. Cystoscopy. 2. Placement of ureteral catheters, bilaterally A/P Problem List: (1) Diverticulitis of intestine with abscess ICD Code: K57.80 Status: Acute (2) Intra-abdominal abscess ICD Code: K65.1 Status: Acute (3) Abdominal pain ICD Code: R10.9 Status: Resolved (4) Failure of outpatient treatment ICD Code: Z78.9 Status: Resolved (5) HTN (hypertension) ICD Code: I10 Status: Chronic (6) COPD (chronic obstructive pulmonary disease) ICD Code: J44.9 Status: Chronic (7) Tobacco abuse ICD Code: Z72.0 Status: Chronic (8) Adenocarcinoma, colon ICD Code: C18.9 Status: Acute Assessment and Plan 66-year-old male with Intra-Abdominal abscess: outpatient CT Abd/Pelvis w/ 10cm intra-abdominal abscess. 07/11CT-guided drainage of intra-abdominal abscess, with drain placement. S/p surgery 07/18. s/p Cipro and Flagyl per infectious disease and continue vancomycin. Pathology report positive for invasive moderately differentiated adenocarcinoma of the colon Adenocarcinoma of the colon: Appreciate input from medical oncology as well as radiation oncology, however treatment would be outpatients likely after patient surgically stable. CEA normal post procedure. Recommended outpatient PET scan Encephalopathy: 07/27/16, check ammonia level and treat any infectious cause. 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 lifestyle modifications. Continue insulin sliding scale. However upon discharge was start patient on metformin 500 mg by mouth twice a day. Leukocytosis: . Afebrile. Blood cultures negative. Chest x-ray unremarkable. No growth in urine culture. antibiotics per ID. Oral thrush: Start Nystatin HTN- BP soft, continue atenolol. Hold losartan. Tobacco Abuse Pt counselled. - Offered NicoDerm if needed. Hypokalemia S/t poor PO intake. - replete and monitor. Acute renal insufficiency: Resolved Lower extremity swelling/edema: Status post Lasix IV 20 mg 1 07/25/16; 2-D echo with EF of 45-50% with mildly reduced systolic function . BNP 317 DVT Prophylaxis: SCD/Teds. patient is ambulatory.anticoagulation as per surgical service. Problem Qualifiers (1) Diverticulitis of intestine with abscess: Qualified Code: K57.20 - Diverticulitis of large intestine with abscess without bleeding (2) Abdominal pain: Qualified Code: R10.32 - Left lower quadrant pain Wade Newman MD Jul 27, 2016 10:59
--- NOTE | 2016-07-27 11:05 | HHI.PR ---
Subjective Remarks POD#9 s/p perforated cancer - LAR, ileo wants to go home, confused this am per Objective Vital Signs Date Time Temp Pulse Resp B/P Pulse Ox O2 Delivery O2 Flow Rate FiO2 07/27/16 08:00 97.9 84 20 112/52 95 07/26/16 23:44 98.1 90 18 126/76 99 07/26/16 20:03 98.9 90 18 110/54 97 07/26/16 16:00 98.4 88 18 108/58 97 07/26/16 12:00 98.2 94 17 93/54 97 I/O 07/26/16 07/26/16 07/26/16 07/27/16 07/27/16 07/27/16 06:59 14:59 22:59 06:59 14:59 22:59 Intake Total 360 ml 1055 ml 580 ml 360 ml 120 ml Output Total 600 ml 650 ml 800 ml 300 ml Balance -240 ml 405 ml -220 ml 60 ml 120 ml Intake Oral 360 ml 480 ml 580 ml 360 ml 120 ml IV Total 0 ml 575 ml Output Urine Total 400 ml 450 ml 500 ml Stool Total 200 ml 200 ml 300 ml 300 ml # Voids 2 Result Diagram: 07/27/16 0550 07/27/[address] guided drain placement to left lower quadrant diverticular abscess on 07/11. Exchange on 07/14 by IR. Objective Remarks Abdomen soft, obese, tender Stoma pink, functional Wound erythematous -no improvement from yesterday, dressings clean Candidiasis improving Assessment and Plan Assessment and Plan Confusion being addressed by Dr. Trent Curry Augmentin for wound Ryann Gonzalez MD Jul 27, 2016 11:05
[2016-07-27] MEDS: NYSTATIN SUSP 500,000 U/5 ML CUP SWISH-SWAL SCH ×3 (11:33→20:01)
[2016-07-27 11:34] VITALS: BP 103/51; PULSE 89; RESP 19; TEMP 98.4; O2SAT 98
[2016-07-27] MEDS: AMOXICILLIN/CLAVULANATE K 875 MG TAB PO SCH ×2 (12:15→20:00)
[2016-07-27 16:00] VITALS: BP 106/52; PULSE 68; RESP 20; TEMP 97.4; O2SAT 98
[2016-07-27 20:00] VITALS: BP 100/58; PULSE 93; RESP 17; TEMP 97.4; O2SAT 95
[2016-07-27] MEDS: PRAVASTATIN SOD 80 MG TAB PO SCH (20:00)
[2016-07-27] MEDS ORDERED: SODIUM CHLOR 0.9% 250 ML INJ 250 ML IV ONE (23:30)
[2016-07-27] MEDS ORDERED: FUROSEMIDE 20 MG/2 ML VIAL IV ONE (23:30)
[2016-07-28] VITALS (10 sets, daily range): BP systolic 98–108; BP diastolic 50–60; PULSE 63–90; RESP 16–20; TEMP 97.2–98.7; O2SAT 96–100
[2016-07-28] MEDS: INSULIN ASPART SUPPLEMENTAL SCALE SQ SCH ×4 (04:53→21:00)
[2016-07-28] MEDS: NYSTATIN 100,000 U/GM PWD 15 GM BTL TOPICAL SCH ×3 (04:54→22:00)
[2016-07-28] MEDS: [UNRECOGNIZED DRUG - REMARK] IVF SCH ×3 (04:54→22:00)
[2016-07-28 06:47] LABS: AUTOMATED NEUTROPHIL # 11.9 TH/MM3 (1.8-7.7); BASOPHIL # 0.1 TH/MM3 (0-0.2); BASOPHIL % 0.6 % (0.0-2.0); EOSINOPHIL # 0.4 TH/MM3 (0-0.4); HEMO FLAGS DIFF FINAL; LYMPH % 9.4 % (9.0-44.0); LYMPHOCYTE # 1.4 TH/MM3 (1.0-4.8); MEAN CORPUSCULAR HEMOGLOBIN 30.2 PG (27.0-34.0); MONO % 5.9 % (0.0-8.0); NEUT % 81.1 % (16.0-70.0); PLATELET COUNT 289 TH/MM3 (150-450); RED BLOOD COUNT 2.69 MIL/MM3 (4.50-5.90); RED CELL DISTRIBUTION WIDTH 16.3 % (11.6-17.2); WHITE BLOOD COUNT 14.6 TH/MM3 (4.0-11.0)
[2016-07-28 06:52] LABS: ALT (GPT) 17 U/L (12-78); ANION GAP 11 MEQ/L (5-15); AST (GOT) 18 U/L (15-37); BICARBONATE 21.8 MEQ/L (21.0-32.0); BLOOD UREA NITROGEN 11 MG/DL (7-18); CHLORIDE 107 MEQ/L (98-107); GLOMERULAR FILTRATION RATE 64 ML/MIN (>89); POTASSIUM 3.3 MEQ/L (3.5-5.1); SODIUM (NA) 140 MEQ/L (136-145)
[2016-07-28 06:54] LABS: ALKALINE PHOSPHATASE 80 U/L (45-117); TOTAL BILIRUBIN ADULT 0.3 MG/DL (0.2-1.0)
[2016-07-28] MEDS: NYSTATIN SUSP 500,000 U/5 ML CUP SWISH-SWAL SCH ×4 (07:37→22:00)
[2016-07-28] MEDS: BUDESONIDE-FORMOTEROL 160/4.5 MCG INHALER INH SCH ×2 (07:39→22:00)
[2016-07-28] MEDS: AMOXICILLIN/CLAVULANATE K 875 MG TAB PO SCH ×2 (07:40→21:59)
[2016-07-28] MEDS: PANTOPRAZOLE SOD 40 MG DELAYED RELEASE TAB PO SCH (07:40)
[2016-07-28] MEDS: MULTIVITAMINS/MINERALS THERAPEUTIC TAB PO SCH (07:41)
[2016-07-28] MEDS: CYANOCOBALAMIN 1,000 MCG TAB PO SCH (07:41)
[2016-07-28] MEDS: FOLIC ACID 1 MG TAB PO SCH (07:41)
[2016-07-28] MEDS: HEPARIN SODIUM - SQ 10,000 UNITS/ML VIAL SQ SCH ×2 (07:43→21:59)
[2016-07-28] MEDS: METOCLOPRAMIDE HCL 10 MG/2 ML VIAL IVS SCH ×2 (07:44→21:59)
[2016-07-28] MEDS: ATENOLOL 50 MG TAB PO SCH (08:19)
[2016-07-28] MEDS: oxyCODONE/ACETAMINOPHEN 10 MG/325 MG TAB PO PRN ×3 (09:44→23:20)
--- NOTE | 2016-07-28 10:22 | PD.ONC.PN ---
Subjective Subjective Remarks Feeling better. No confusion. Frustrated about not going home yet. Objective Data Date Time Temp Pulse Resp B/P Pulse Ox O2 Delivery O2 Flow Rate FiO2 07/28/16 08:00 98.3 63 20 107/57 100 07/28/16 00:00 98.7 84 17 101/56 100 07/27/16 20:00 97.4 93 17 100/58 95 07/27/16 17:09 20 07/27/16 16:00 97.4 68 20 106/52 98 07/27/16 11:34 98.4 89 19 103/51 98 07/28/16 07/28/16 07/28/16 06:59 14:59 22:59 Intake Total 240 ml Output Total 450 ml Balance -210 ml Result Diagram: 07/28/1660407/28/16604 Laboratory Results Laboratory Tests Test 07/27/16 07/28/16 07/28/16 10:25 06:05 07:30 Ammonia 23 MCMOL/L White Blood Count 14.6 TH/MM3 Red Blood Count 2.69 MIL/MM3 Hemoglobin 8.1 GM/DL Hematocrit 24.0 % Mean Corpuscular Volume 89.0 FL Mean Corpuscular Hemoglobin 30.2 PG Mean Corpuscular Hemoglobin 34.0 % Concent Red Cell Distribution Width 16.3 % Platelet Count 289 TH/MM3 Mean Platelet Volume 8.4 FL Neutrophils (%) (Auto) 81.1 % Lymphocytes (%) (Auto) 9.4 % Monocytes (%) (Auto) 5.9 % Eosinophils (%) (Auto) 3.0 % Basophils (%) (Auto) 0.6 % Neutrophils # (Auto) 11.9 TH/MM3 Lymphocytes # (Auto) 1.4 TH/MM3 Monocytes # (Auto) 0.9 TH/MM3 Eosinophils # (Auto) 0.4 TH/MM3 Basophils # (Auto) 0.1 TH/MM3 CBC Comment DIFF FINAL Differential Comment Sodium Level 140 MEQ/L Potassium Level 3.3 MEQ/L Chloride Level 107 MEQ/L Carbon Dioxide Level 21.8 MEQ/L Anion Gap 11 MEQ/L Blood Urea Nitrogen 11 MG/DL Creatinine 1.15 MG/DL Estimat Glomerular Filtration 64 ML/MIN Rate Random Glucose 108 MG/DL Calcium Level 8.1 MG/DL Total Bilirubin 0.3 MG/DL Aspartate Amino Transf 18 U/L (AST/SGOT) Alanine Aminotransferase 17 U/L (ALT/SGPT) Alkaline Phosphatase 80 U/L Total Protein 6.4 GM/DL Albumin 1.9 GM/DL Blood Type O POSITIVE Antibody Screen NEGATIVE Crossmatch Leukocyte-Reduced Red Blood Cells Blood Bank Comment Culture Results Microbiology Date/Time Procedure Status Source Growth 07/26/16 10:53 Gram Stain - Final Resulted Wound Abdomen 07/26/16 10:53 Wound Culture - Preliminary Resulted Wound Abdomen NO GROWTH IN 24 HOURS. Administered Medications Medications (Trade) Dose Ordered Sig/Cori Route PRN Reason Start Time Stop Time Status Last Admin Dose Admin Ondansetron HCl (Zofran Inj) 4 mg Q6H PRN IVP NAUSEA OR VOMITING 07/10/16 19:45 07/17/16 17:34 Budesonide/ Formoterol Fumarate (Symbicort 160-4.5 Inh) 2 puff Q12HR INH 07/10/16 21:00 07/28/16 07:39 Cyanocobalamin (Vitamin B12) 500 mcg DAILY PO 07/11/16 09:00 07/28/16 07:41 Folic Acid (Folate) 1 mg DAILY PO 07/11/16 09:00 07/28/16 07:41 Losartan Potassium (Cozaar) 100 mg DAILY PO 07/11/16 09:00 Hold 07/12/16 09:24 Multivitamins/ Minerals Therapeutic (Theragran M Tab) 1 tab DAILY PO 07/11/16 09:00 07/28/16 07:41 Pravastatin Sodium (Pravachol) 80 mg HS PO 07/10/16 21:00 07/27/16 20:00 Morphine Sulfate (Morphine Inj) 2 mg Q3H PRN IV PUSH PAIN 6-10 07/10/16 20:00 07/20/16 05:04 Zolpidem Tartrate (Ambien) 5 mg HS PRN PO SLEEP 07/10/16 20:00 07/27/16 22:18 Lorazepam (Ativan Inj) 1 mg Q3H PRN IV PUSH WITHDRAWAL/AGITATION 07/10/16 20:00 07/17/16 19:38 Atenolol (Tenormin) 50 mg DAILY PO 07/15/16 09:00 07/27/16 08:38 Pantoprazole Sodium (Protonix) 40 mg DAILY PO 07/19/16 09:00 07/28/16 07:40 Metoclopramide HCl 10 mg 10 mg Q12HR IVS 07/18/16 21:00 07/28/16 07:44 Potassium Chloride (KCl 20 Meq Premix Inj) 100 ml @ 50 mls/hr UNSCH PRN IV POTASSIUM 3 TO 3.5 07/18/16 19:30 07/26/16 06:06 Heparin Sodium (Porcine) (Heparin Inj) 5,000 units Q12HR SQ 07/20/16 10:30 07/28/16 07:43 IV Flush (NS Flush) See Protocol DAILY IVF 07/22/16 09:00 07/28/16 07:44 Heparin Sodium (Porcine) (Heparin Central Flush) See Protocol DAILY IVF 07/22/16 09:00 07/28/16 07:43 IV Flush (NS Flush) See Protocol Q8HR IVF 07/21/16 14:00 07/28/16 04:54 Loperamide HCl (Imodium) 2 mg Q6H PRN PO DIARRHEA 07/23/16 11:30 07/23/16 23:08 Nystatin (Mycostatin Powder) 1 applic Q8HR TOPICAL 07/24/16 22:00 07/28/16 04:54 Oxycodone/ Acetaminophen (Percocet 10-325 Mg) 2 tab Q6H PRN PO BREAKTHROUGH PAIN 07/24/16 20:00 07/28/16 09:44 Nystatin (Mycostatin Liq) 5 ml QID SWISH-SWAL 07/27/16 13:00 07/28/16 07:37 Amoxicillin/ Clavulanate Potassium (Augmentin) 875 mg Q12HR PO 07/27/16 12:00 07/28/16 07:40 Objective Remarks GENERAL: Well-nourished, well-developed patient. SKIN: Warm and dry. HEAD: Normocephalic. EYES: No scleral icterus. No injection or drainage. NECK: Supple, trachea midline. No JVD or lymphadenopathy. LYMPHATIC: No adenopathy. CARDIOVASCULAR: Regular rate and rhythm without murmurs. RESPIRATORY: Breath sounds equal bilaterally. No accessory muscle use. GASTROINTESTINAL: Abdomen soft, non-tender, nondistended. Dressing noted. Surgical wound less erythematous. EXTREMITIES: No cyanosis, or edema. MUSCULOSKELETAL: Adequate muscle tone. NEUROLOGICAL: No obvious focal deficit. Awake, alert, and oriented x3. PSYCHIATRIC: Appropriate mood and affect; insight and judgment normal. Assessment/Plan Problem List: (1) Adenocarcinoma, colon Status: Acute Plan: 07/28/16: wound less erythematous. Was started on Augmentin 07/27/16. 07/27/16: Pt's incision seems somewhat more erythremic today than yesterday. Concerning for another infection given pt's slightly confused status this am. Appreciate recommendations from ID, surgery. -- Path report on 07/22 shows moderately differentiated adenocarcinoma. -- CEA level low at 1.4; however this was drawn post surgery. Hx/Workup: Pt had a CT of the [facility]09 which showed a 10cm intra-abdominal abscess. He was sent to the ER on 07/10 for a colorectal surgical evaluation. On 07/[address] guided drain placed. He then had a rectal sigmoidectomy with ileostomy placement on 07/18. Pathology proved to be perforated colon cancer. He has lost about 10 pounds since his symptoms began. Pathologic stage T4b N0 MX. (2) Anemia in chronic illness Status: Chronic Plan: 07/28/16: Hgb up to 8.1 today. 07/27/16: Hgb 7.6 today. Assessment 66 y/o male who was directed to the ED from the [facility] for 10cm intra- abdominal mass. Plan 1. Continue Abx per surgery. 2. If there is no distant mets, he would be a candidate for 6 months of adjuvant chemotherapy, may also need radiation. Dr Caicedo following. 3. Once pt is healed (at least 4 weeks) we will be able to continue with an outpatient PET scan to look for metastases. 4. Supportive care. Jules Lawrence MD Jul 28, 2016 10:22
--- NOTE | 2016-07-28 10:34 | HHI.PR ---
Subjective Remarks Follow-up intra-abdominal abscess and now new diagnosis of invasive differentiated adenocarcinoma 07/25/16-patient seen and examined; reports some shortness of breath with ambulation/exertion; so complains of bilateral lower extremity edema. Denies any chest pain. Currently afebrile. Patient also complains of no output in ileostomy bag 2 hours . by the bedside. 07/26/16-patient seen and examined, very upset about his diagnosis and about the fact that he is not being discharged today. Otherwise denies any abdominal pain and currently afebrile. He was seen yesterday by both medical oncology as well as radiation oncology 07/27/16-patient seen and examined, per he continues had episodes of hallucinations last night as well as this morning. Appears stable alert and oriented during my exam. 07/28/16-patient seen and examined; alert and oriented 3. Wants to go home. Afebrile. Case discussed 07/27/16 with infectious disease specialist. Objective Vitals Vital Signs Date Time Temp Pulse Resp B/P Pulse Ox O2 Delivery O2 Flow Rate FiO2 07/28/16 08:00 98.3 63 20 107/57 100 07/28/16 00:00 98.7 84 17 101/56 100 07/27/16 20:00 97.4 93 17 100/58 95 07/27/16 17:09 20 07/27/16 16:00 97.4 68 20 106/52 98 07/27/16 11:34 98.4 89 19 103/51 98 I/O 07/27/16 07/27/16 07/27/16 07/28/16 07/28/16 07/28/16 06:59 14:59 22:59 06:59 14:59 22:59 Intake Total 360 ml 1380 ml 360 ml 240 ml Output Total 300 ml 700 ml 300 ml 450 ml Balance 60 ml 680 ml 60 ml -210 ml Intake Oral 360 ml 880 ml 360 ml 240 ml IV Total 500 ml Output Urine Total 700 ml 300 ml 250 ml Stool Total 300 ml 200 ml # Voids 2 # Bowel Movements 0 Result Diagram: 07/28/16 0605 07/28/16 0605 Imaging Last Impressions Chest X-Ray 07/23/16 0000 Signed Impressions: Service Date/Time: Saturday, July 23, 2016 10:12 - CONCLUSION: No acute disease. Jonathan Hatch Jr., MD Upper Extremity Ultrasound 07/21/16 0000 Signed Impressions: Service Date/Time: Thursday, July 21, 2016 19:11 - CONCLUSION: Thrombosed cephalic vein. KRian Aguilar MD Catheter Change 07/14/16 0000 Signed Impressions: Service Date/Time: Thursday, July 14, 2016 16:02 - CONCLUSION: Uncomplicated tube exchange as above. Rudi Resendez MD Abscess Drainage CT 07/11/16 0000 Signed Impressions: Service Date/Time: Monday, July 11, 2016 14:14 - CONCLUSION: Uncomplicated CT guided drainage. Reece Elkins MD Objective Remarks GENERAL: No acute distress SKIN: Warm and dry. HEAD: Normocephalic. EYES: No scleral icterus. No injection or drainage. NECK: Supple, trachea midline. No JVD or lymphadenopathy. CARDIOVASCULAR: Regular rate and rhythm without murmurs, gallops, or rubs. RESPIRATORY: Breath sounds equal bilaterally. No accessory muscle use. GASTROINTESTINAL: Abdomen soft, non-tender, nondistended. Surgical incision healing however worsening surrounding erythema. Ileostomy intact MUSCULOSKELETAL: No cyanosis, or edema. BACK: Nontender without obvious deformity. No CVA tenderness. Procedures 07/18/16 Exploratory laparotomy with proctosigmoidectomy, low pelvic anastomosis , diverting ileostomy, on-table bowel prep. 1. Cystoscopy. 2. Placement of ureteral catheters, bilaterally A/P Problem List: (1) Diverticulitis of intestine with abscess ICD Code: K57.80 Status: Acute (2) Intra-abdominal abscess ICD Code: K65.1 Status: Acute (3) Abdominal pain ICD Code: R10.9 Status: Resolved (4) Failure of outpatient treatment ICD Code: Z78.9 Status: Resolved (5) HTN (hypertension) ICD Code: I10 Status: Chronic (6) COPD (chronic obstructive pulmonary disease) ICD Code: J44.9 Status: Chronic (7) Tobacco abuse ICD Code: Z72.0 Status: Chronic (8) Adenocarcinoma, colon ICD Code: C18.9 Status: Acute Assessment and Plan 66-year-old male with Intra-Abdominal abscess: outpatient CT Abd/Pelvis w/ 10cm intra-abdominal abscess. 07/11CT-guided drainage of intra-abdominal abscess, with drain placement. S/p surgery 07/18. s/p Cipro, Flagyl and vancomycin per infectious disease . Augmentin was added 07/28/16 by colorectal surgery. Pathology report positive for invasive moderately differentiated adenocarcinoma of the colon Adenocarcinoma of the colon: Appreciate input from medical oncology as well as radiation oncology, however treatment would be outpatients likely after patient surgically stable. CEA normal post procedure. Recommended outpatient PET scan Anemia of acute blood loss postoperative surgery: H&H dropping, will transfuse 2 units packed red blood cell 07/28/16 and monitor H&H. 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 lifestyle modifications. Continue insulin sliding scale. However upon discharge was start patient on metformin 500 mg by mouth twice a day. Leukocytosis: . Afebrile. Blood cultures negative. Chest x-ray unremarkable. No growth in urine culture. antibiotics per ID. Oral thrush: Continue Nystatin HTN- BP soft, continue atenolol. Hold losartan. Tobacco Abuse Pt counselled. - Offered NicoDerm if needed. Hypokalemia S/t poor PO intake. - replete and monitor. Acute renal insufficiency: Resolved Lower extremity swelling/edema: Status post Lasix IV 20 mg 1 07/25/16; 2-D echo with EF of 45-50% with mildly reduced systolic function . BNP 317 DVT Prophylaxis: SCD/Teds. patient is ambulatory.anticoagulation as per surgical service. Problem Qualifiers (1) Diverticulitis of intestine with abscess: Qualified Code: K57.20 - Diverticulitis of large intestine with abscess without bleeding (2) Abdominal pain: Qualified Code: R10.32 - Left lower quadrant pain Wade Newman MD Jul 28, 2016 10:34
[2016-07-28] MEDS ORDERED: PHARMACY ORDERED LAB XX ONE (10:45)
[2016-07-28] MEDS ORDERED: diphenhydrAMINE HCL 25 MG CAP PO PRN (10:45)
[2016-07-28] MEDS ORDERED: SODIUM CHLOR 0.9% 250 ML INJ 250 ML IV ONE ×2 (10:45→11:15)
[2016-07-28] MEDS ORDERED: ACETAMINOPHEN 325 MG TAB PO PRN (10:45)
[2016-07-28] MEDS ORDERED: POTASSIUM CHLORIDE 10 MEQ CONTROLLED RELEASE TAB PO ONE (11:00)
[2016-07-28] MEDS ORDERED: FUROSEMIDE 20 MG/2 ML VIAL IV ONE (11:00)
--- NOTE | 2016-07-28 13:06 | HHI.PR ---
Subjective Remarks POD#10 s/p perforated cancer - LAR, ileo no further confusion, still wants to go home Objective Vital Signs Date Time Temp Pulse Resp B/P Pulse Ox O2 Delivery O2 Flow Rate FiO2 07/28/16 12:00 98.4 81 20 100/56 96 07/28/16 11:58 97.2 85 20 103/51 07/28/16 11:41 98.4 81 20 100/56 96 07/28/16 08:00 98.3 63 20 107/57 100 07/28/16 00:00 98.7 84 17 101/56 100 07/27/16 20:00 97.4 93 17 100/58 95 07/27/16 17:09 20 07/27/16 16:00 97.4 68 20 106/52 98 I/O 07/27/16 07/27/16 07/27/16 07/28/16 07/28/16 07/28/16 06:59 14:59 22:59 06:59 14:59 22:59 Intake Total 360 ml 1380 ml 360 ml 240 ml Output Total 300 ml 700 ml 300 ml 450 ml Balance 60 ml 680 ml 60 ml -210 ml Intake Oral 360 ml 880 ml 360 ml 240 ml IV Total 500 ml Output Urine Total 700 ml 300 ml 250 ml Stool Total 300 ml 200 ml # Voids 2 # Bowel Movements 0 Result Diagram: 07/28/16 0605 07/28/[address] guided drain placement to left lower quadrant diverticular abscess on 07/11. Exchange on 07/14 by IR. Objective Remarks Abdomen soft, obese, tender Stoma pink, functional Wound less erythematous Candidiasis improving Assessment and Plan Assessment and Plan OK for discharge with [facility] when ok with Ryann Grajeda MD Jul 28, 2016 13:06
--- NOTE | 2016-07-28 17:01 | HHI.IDPN ---
Subjective Subjective Remarks sp resection with colostomy 07/18 Pth confirmed perforated rectosigmoid carinoma Chemo and XRT post poned to let pt heal co abdominal pain SOme areas of abdominal incision dehiscence co not feeling well no fever WBC down to 14 K Antibiotics am/clav Allergies: Coded Allergies: No Known Allergies (Unverified , 07/10/16) Objective . Vital Signs Date Time Temp Pulse Resp B/P Pulse Ox O2 Delivery O2 Flow Rate FiO2 07/28/16 15:10 98.3 86 20 98/50 98 07/28/16 14:58 98.1 86 20 103/60 99 07/28/16 12:00 98.4 81 20 100/56 96 07/28/16 11:58 97.2 85 20 103/51 07/28/16 11:41 98.4 81 20 100/56 96 07/28/16 10:44 18 07/28/16 08:00 98.3 63 20 107/57 100 07/28/16 00:00 98.7 84 17 101/56 100 07/27/16 20:00 97.4 93 17 100/58 95 07/27/16 07/27/16 07/28/16 15:00 23:00 07:00 Intake Total 1380 ml 360 ml 240 ml Output Total 700 ml 300 ml 450 ml Balance 680 ml 60 ml -210 ml Intake Oral 880 ml 360 ml 240 ml IV Total 500 ml Output Urine Total 700 ml 300 ml 250 ml Stool Total 200 ml # Bowel Movements 0 . Laboratory Tests Test 07/27/16 07/28/16 05:50 06:05 White Blood Count 13.6 TH/MM3 14.6 TH/MM3 Red Blood Count 2.53 MIL/MM3 2.69 MIL/MM3 Hemoglobin 7.6 GM/DL 8.1 GM/DL Hematocrit 22.4 % 24.0 % Mean Corpuscular Volume 88.7 FL 89.0 FL Mean Corpuscular Hemoglobin 30.0 PG 30.2 PG Mean Corpuscular Hemoglobin 33.8 % 34.0 % Concent Red Cell Distribution Width 16.3 % 16.3 % Platelet Count 228 TH/MM3 289 TH/MM3 Mean Platelet Volume 8.4 FL 8.4 FL Neutrophils (%) (Auto) 74.5 % 81.1 % Lymphocytes (%) (Auto) 14.7 % 9.4 % Monocytes (%) (Auto) 6.7 % 5.9 % Eosinophils (%) (Auto) 3.2 % 3.0 % Basophils (%) (Auto) 0.9 % 0.6 % Neutrophils # (Auto) 10.1 TH/MM3 11.9 TH/MM3 Lymphocytes # (Auto) 2.0 TH/MM3 1.4 TH/MM3 Monocytes # (Auto) 0.9 TH/MM3 0.9 TH/MM3 Eosinophils # (Auto) 0.4 TH/MM3 0.4 TH/MM3 Basophils # (Auto) 0.1 TH/MM3 0.1 TH/MM3 CBC Comment DIFF FINAL DIFF FINAL Differential Comment Laboratory Tests Test 07/27/16 07/27/16 07/28/16 05:50 10:25 06:05 Sodium Level 138 MEQ/L 140 MEQ/L Potassium Level 3.5 MEQ/L 3.3 MEQ/L Chloride Level 107 MEQ/L 107 MEQ/L Carbon Dioxide Level 21.6 MEQ/L 21.8 MEQ/L Anion Gap 9 MEQ/L 11 MEQ/L Blood Urea Nitrogen 10 MG/DL 11 MG/DL Creatinine 1.05 MG/DL 1.15 MG/DL Estimat Glomerular Filtration 71 ML/MIN 64 ML/MIN Rate Random Glucose 94 MG/DL 108 MG/DL Calcium Level 8.0 MG/DL 8.1 MG/DL Total Bilirubin 0.3 MG/DL 0.3 MG/DL Aspartate Amino Transf 16 U/L 18 U/L (AST/SGOT) Alanine Aminotransferase 12 U/L 17 U/L (ALT/SGPT) Alkaline Phosphatase 71 U/L 80 U/L Total Protein 5.9 GM/DL 6.4 GM/DL Albumin 1.8 GM/DL 1.9 GM/DL Ammonia 23 MCMOL/L Microbiology Date/Time Procedure Status Source Growth 07/26/16 10:53 Gram Stain - Final Complete Wound Abdomen 07/26/16 10:53 Wound Culture - Final Complete Lou Albicans Imaging Last Impressions Chest X-Ray 07/23/16 0000 Signed Impressions: Service Date/Time: Saturday, July 23, 2016 10:12 - CONCLUSION: No acute disease. Jonathan Hatch Jr., MD Upper Extremity Ultrasound 07/21/16 0000 Signed Impressions: Service Date/Time: Thursday, July 21, 2016 19:11 - CONCLUSION: Thrombosed cephalic vein. KRian Aguilar MD Catheter Change 07/14/16 0000 Signed Impressions: Service Date/Time: Thursday, July 14, 2016 16:02 - CONCLUSION: Uncomplicated tube exchange as above. Rudi Resendez MD Abscess Drainage CT 07/11/16 0000 Signed Impressions: Service Date/Time: Monday, July 11, 2016 14:14 - CONCLUSION: Uncomplicated CT guided drainage. Reece Elkins MD Physical Exam CONSTITUTIONAL/GENERAL: This is an adequately nourished patient, in no apparent distress. SKIN: No jaundice, rashes, or lesions.Skin temperature appropriate. Not diaphoretic. EYESNo scleral icterus. No injection or drainage. Fundi not examined. CARDIOVASCULAR: Regular rate and rhythm without murmurs, gallops, or rubs. RESPIRATORY/CHEST: Symmetric, unlabored respirations. Clear to auscultation. GASTROINTESTINAL: Abdomen soft, + tender without guarding or rebound mildly distended. Stoma in place RLQ with \ liquid brown sttol low transverse incision with 3 open areas, packed, minimal serous odorless d/c present Some erythema noted No hepato-splenomegaly, or palpable masses. No guarding. Bowel sounds present. : no bladder distension MUSCULOSKELETAL: Extremities without clubbing, cyanosis, or edema. NEUROLOGICAL: Awake and alert. Motor and sensory grossly within normal limits. Follows commands. Normal speech. Ambulates Assessment & Plan Remarks Intraabdominal abscess 2/2 probable colon ca sp percutaneous drainage sp resection - path with CA - growing C.albicans from abd wound - doubt clin significance New leukocytosis - improved, but still persists REC's: cont am/clav for now fu clinically and WBC Kassandra Granados MD Jul 28, 2016 17:01
[2016-07-28 18:53] LABS: REVIEW FLAG FINAL
[2016-07-28] MEDS: PRAVASTATIN SOD 80 MG TAB PO SCH (22:00)
[2016-07-28] MEDS: ZOLPIDEM TARTRATE 5 MG TAB PO PRN (22:03)
[2016-07-29] VITALS: BP 103/57; PULSE 89; RESP 16; TEMP 97.9; O2SAT 98
[2016-07-29] MEDS: NYSTATIN 100,000 U/GM PWD 15 GM BTL TOPICAL SCH (06:00)
[2016-07-29] MEDS: [UNRECOGNIZED DRUG - REMARK] IVF SCH (06:00)
[2016-07-29] MEDS: INSULIN ASPART SUPPLEMENTAL SCALE SQ SCH ×2 (06:54→11:00)
[2016-07-29] MEDS: oxyCODONE/ACETAMINOPHEN 10 MG/325 MG TAB PO PRN ×2 (06:55→12:50)
[2016-07-29 07:05] LABS: AUTOMATED NEUTROPHIL # 8.8 TH/MM3 (1.8-7.7); BASOPHIL # 0.1 TH/MM3 (0-0.2); BASOPHIL % 0.7 % (0.0-2.0); EOSINOPHIL # 0.5 TH/MM3 (0-0.4); EOSINOPHIL % 3.8 % (0.0-4.0); HEMATOCRIT 28.2 % (39.0-51.0); HEMO FLAGS DIFF FINAL; LYMPH % 15.3 % (9.0-44.0); LYMPHOCYTE # 1.8 TH/MM3 (1.0-4.8); MEAN CELL VOLUME 87.4 FL (80.0-100.0); MEAN CORPUSCULAR HEMOGLOBIN 29.5 PG (27.0-34.0); MEAN CORPUSCULAR HGB CONC 33.7 % (32.0-36.0); MONO % 7.1 % (0.0-8.0); NEUT % 73.1 % (16.0-70.0); PLATELET COUNT 290 TH/MM3 (150-450); RED BLOOD COUNT 3.22 MIL/MM3 (4.50-5.90); RED CELL DISTRIBUTION WIDTH 16.7 % (11.6-17.2)
[2016-07-29 08:00] VITALS: BP 97/54; PULSE 88; RESP 18; TEMP 97.8; O2SAT 95
[2016-07-29] MEDS: ATENOLOL 50 MG TAB PO SCH (09:00)
[2016-07-29] MEDS: BUDESONIDE-FORMOTEROL 160/4.5 MCG INHALER INH SCH (09:00)
[2016-07-29] MEDS: CYANOCOBALAMIN 1,000 MCG TAB PO SCH (09:00)
[2016-07-29] MEDS: METOCLOPRAMIDE HCL 10 MG/2 ML VIAL IVS SCH (09:18)
[2016-07-29] MEDS: NYSTATIN SUSP 500,000 U/5 ML CUP SWISH-SWAL SCH ×2 (09:18→13:00)
[2016-07-29] MEDS: HEPARIN SODIUM - SQ 10,000 UNITS/ML VIAL SQ SCH (09:21)
[2016-07-29] MEDS: AMOXICILLIN/CLAVULANATE K 875 MG TAB PO SCH (09:22)
[2016-07-29] MEDS: PANTOPRAZOLE SOD 40 MG DELAYED RELEASE TAB PO SCH (09:22)
[2016-07-29] MEDS: FOLIC ACID 1 MG TAB PO SCH (09:22)
[2016-07-29] MEDS: MULTIVITAMINS/MINERALS THERAPEUTIC TAB PO SCH (09:22)
--- NOTE | 2016-07-29 09:57 | PD.ONC.PN ---
Subjective Subjective Remarks Afebrile overnight. Patient upset that packing dressing keeps coming off. He states he only has pain with movement. at bedside. Objective Data Date Time Temp Pulse Resp B/P Pulse Ox O2 Delivery O2 Flow Rate FiO2 07/29/16 08:00 97.8 88 18 97/54 95 07/29/16 00:23 16 07/29/16 00:00 97.9 89 16 103/57 98 07/28/16 20:00 98.1 90 16 108/54 97 07/28/16 15:10 98.3 86 20 98/50 98 07/28/16 15:10 98.3 86 20 98/50 98 07/28/16 14:58 98.1 86 20 103/60 99 07/28/16 14:55 98.1 86 20 103/60 99 07/28/16 12:00 98.4 81 20 100/56 96 07/28/16 11:58 97.2 85 20 103/51 07/28/16 11:41 98.4 81 20 100/56 96 Result Diagram: 07/29/16 0630 07/28/16 0605 Laboratory Results Laboratory Tests Test 07/28/16 07/29/16 18:45 06:30 Hemoglobin 9.1 GM/DL 9.5 GM/DL Hematocrit 27.0 % 28.2 % White Blood Count 12.0 TH/MM3 Red Blood Count 3.22 MIL/MM3 Mean Corpuscular Volume 87.4 FL Mean Corpuscular Hemoglobin 29.5 PG Mean Corpuscular Hemoglobin 33.7 % Concent Red Cell Distribution Width 16.7 % Platelet Count 290 TH/MM3 Mean Platelet Volume 7.9 FL Neutrophils (%) (Auto) 73.1 % Lymphocytes (%) (Auto) 15.3 % Monocytes (%) (Auto) 7.1 % Eosinophils (%) (Auto) 3.8 % Basophils (%) (Auto) 0.7 % Neutrophils # (Auto) 8.8 TH/MM3 Lymphocytes # (Auto) 1.8 TH/MM3 Monocytes # (Auto) 0.9 TH/MM3 Eosinophils # (Auto) 0.5 TH/MM3 Basophils # (Auto) 0.1 TH/MM3 CBC Comment DIFF FINAL Differential Comment Culture Results Microbiology Date/Time Procedure Status Source Growth 07/26/16 10:53 Gram Stain - Final Complete Wound Abdomen 07/26/16 10:53 Wound Culture - Final Complete Lou Albicans Administered Medications Medications (Trade) Dose Ordered Sig/Cori Route PRN Reason Start Time Stop Time Status Last Admin Dose Admin Ondansetron HCl (Zofran Inj) 4 mg Q6H PRN IVP NAUSEA OR VOMITING 07/10/16 19:45 07/17/16 17:34 Budesonide/ Formoterol Fumarate (Symbicort 160-4.5 Inh) 2 puff Q12HR INH 07/10/16 21:00 07/29/16 09:00 Cyanocobalamin (Vitamin B12) 500 mcg DAILY PO 07/11/16 09:00 07/29/16 09:00 Folic Acid (Folate) 1 mg DAILY PO 07/11/16 09:00 07/29/16 09:22 Losartan Potassium (Cozaar) 100 mg DAILY PO 07/11/16 09:00 Hold 07/12/16 09:24 Multivitamins/ Minerals Therapeutic (Theragran M Tab) 1 tab DAILY PO 07/11/16 09:00 07/29/16 09:22 Pravastatin Sodium (Pravachol) 80 mg HS PO 07/10/16 21:00 07/28/16 22:00 Morphine Sulfate (Morphine Inj) 2 mg Q3H PRN IV PUSH PAIN 6-10 07/10/16 20:00 07/20/16 05:04 Zolpidem Tartrate (Ambien) 5 mg HS PRN PO SLEEP 07/10/16 20:00 07/28/16 22:03 Lorazepam (Ativan Inj) 1 mg Q3H PRN IV PUSH WITHDRAWAL/AGITATION 07/10/16 20:00 07/17/16 19:38 Atenolol (Tenormin) 50 mg DAILY PO 07/15/16 09:00 07/27/16 08:38 Pantoprazole Sodium (Protonix) 40 mg DAILY PO 07/19/16 09:00 07/29/16 09:22 Metoclopramide HCl 10 mg 10 mg Q12HR IVS 07/18/16 21:00 07/29/16 09:18 Potassium Chloride (KCl 20 Meq Premix Inj) 100 ml @ 50 mls/hr UNSCH PRN IV POTASSIUM 3 TO 3.5 07/18/16 19:30 07/26/16 06:06 Heparin Sodium (Porcine) (Heparin Inj) 5,000 units Q12HR SQ 07/20/16 10:30 07/29/16 09:21 IV Flush (NS Flush) See Protocol DAILY IVF 07/22/16 09:00 07/29/16 09:20 Heparin Sodium (Porcine) (Heparin Central Flush) See Protocol DAILY IVF 07/22/16 09:00 07/29/16 09:20 IV Flush (NS Flush) See Protocol Q8HR IVF 07/21/16 14:00 07/29/16 06:00 IV Flush (NS Flush) See Protocol UNSCH PRN IVF SEE PROTOCOL TABLE 07/21/16 10:15 07/28/16 14:24 Loperamide HCl (Imodium) 2 mg Q6H PRN PO DIARRHEA 07/23/16 11:30 07/23/16 23:08 Nystatin (Mycostatin Powder) 1 applic Q8HR TOPICAL 07/24/16 22:00 07/29/16 06:00 Oxycodone/ Acetaminophen (Percocet 10-325 Mg) 2 tab Q6H PRN PO BREAKTHROUGH PAIN 07/24/16 20:00 07/29/16 06:55 Nystatin (Mycostatin Liq) 5 ml QID SWISH-SWAL 07/27/16 13:00 07/29/16 09:18 Amoxicillin/ Clavulanate Potassium (Augmentin) 875 mg Q12HR PO 07/27/16 12:00 07/29/16 09:22 Objective Remarks GENERAL: Elderly male, lying in bed in nad. SKIN: Warm and dry. HEAD: Normocephalic. EYES: No injection or drainage. NECK: Supple, trachea midline. CARDIOVASCULAR: Regular rate and rhythm RESPIRATORY: Breath sounds equal bilaterally. No accessory muscle use. GASTROINTESTINAL: Abdomen soft, non-tender, nondistended. multiple dressings and packing in place, some erythema noted around midline incision. EXTREMITIES: No cyanosis MUSCULOSKELETAL: Adequate muscle tone. NEUROLOGICAL: No obvious focal deficit. Awake, alert, and oriented x3. Assessment/Plan Problem List: (1) Adenocarcinoma, colon Status: Acute Plan: 07/29/16: continue Augmentin 07/28/16: wound less erythematous. Was started on Augmentin 07/27/16. 07/27/16: Pt's incision seems somewhat more erythremic today than yesterday. Concerning for another infection given pt's slightly confused status this am. Appreciate recommendations from ID, surgery. -- Path report on 07/22 shows moderately differentiated adenocarcinoma. -- CEA level low at 1.4; however this was drawn post surgery. Hx/Workup: Pt had a CT of the abdomen/pelvis at the [place] clinic on 07/09 which showed a 10cm intra-abdominal abscess. He was sent to the ER on 07/10 for a colorectal surgical evaluation. On 07/[address] guided drain placed. He then had a rectal sigmoidectomy with ileostomy placement on 07/18. Pathology proved to be perforated colon cancer. He has lost about 10 pounds since his symptoms began. Pathologic stage T4b N0 MX. (2) Anemia in chronic illness Status: Chronic Plan: 07/29/16: hgb 9.5 today. 07/28/16: Hgb up to 8.1 today. 07/27/16: Hgb 7.6 today. Assessment 66 y/o male who was directed to the ED from the [place] clinic for 10cm intra- abdominal mass. Plan 1. continue supportive care 2. plan for outpatient follow up-- 4 weeks post surgery plan for outpatient PET to look for mets. If no distal mets, would be candidate for 6mos. adjuvant chemo Attending Statement The exam, history, and the medical decision-making described in the above note were completed with the assistance of the mid-level provider. I reviewed and agree with the findings presented. I attest that I had a [id number] encounter with the patient on the same day, and personally performed and documented my assessment and findings in the medical record. Abdominal pain is better. Wound less erythematous. Continue wound care per CRS. F/u oncology clinic for adjuvant therapy if approved by his [place] physician. Imelda Mauro Jul 29, 2016 09:57 Jules Lawrence MD Jul 29, 2016 11:51
[2016-07-29] MEDS ORDERED: NYST10007 TOPICAL (10:22)
[2016-07-29] MEDS ORDERED: ATEN50TA PO (10:22)
[2016-07-29] MEDS ORDERED: PANT40TA3 PO (10:22)
[2016-07-29] MEDS ORDERED: METF500T PO (10:22)
[2016-07-29] MEDS ORDERED: NYST1000 SWISH-SWAL (10:22)
[2016-07-29] MEDS ORDERED: OXYC1TAB36 PO (10:22)
[2016-07-29] MEDS ORDERED: BLOOD GLUCOSE T1 TES (10:25)
[2016-07-29] MEDS ORDERED: INSU-126 (10:25)
[2016-07-29] MEDS ORDERED: BLOOD GLUCOSE M1 KIT (10:25)
[2016-07-29] MEDS ORDERED: [UNRECOGNIZED DRUG - CODE] (10:25)
--- NOTE | 2016-07-29 10:27 | HHI.PR ---
Subjective Remarks Follow-up intra-abdominal abscess and now new diagnosis of invasive differentiated adenocarcinoma 07/25/16-patient seen and examined; reports some shortness of breath with ambulation/exertion; so complains of bilateral lower extremity edema. Denies any chest pain. Currently afebrile. Patient also complains of no output in ileostomy bag 2 hours . by the bedside. 07/26/16-patient seen and examined, very upset about his diagnosis and about the fact that he is not being discharged today. Otherwise denies any abdominal pain and currently afebrile. He was seen yesterday by both medical oncology as well as radiation oncology 07/27/16-patient seen and examined, per he continues had episodes of hallucinations last night as well as this morning. Appears stable alert and oriented during my exam. 07/28/16-patient seen and examined; alert and oriented 3. Wants to go home. Afebrile. Case discussed 07/27/16 with infectious disease specialist. 07/29/16-patient seen and examined. Currently afebrile and white blood cell count down to 12,000. Would like to go home today. Objective Vitals Vital Signs Date Time Temp Pulse Resp B/P Pulse Ox O2 Delivery O2 Flow Rate FiO2 07/29/16 08:00 97.8 88 18 97/54 95 07/29/16 00:23 16 07/29/16 00:00 97.9 89 16 103/57 98 07/28/16 20:00 98.1 90 16 108/54 97 07/28/16 15:10 98.3 86 20 98/50 98 07/28/16 15:10 98.3 86 20 98/50 98 07/28/16 14:58 98.1 86 20 103/60 99 07/28/16 14:55 98.1 86 20 103/60 99 07/28/16 12:00 98.4 81 20 100/56 96 07/28/16 11:58 97.2 85 20 103/51 07/28/16 11:41 98.4 81 20 100/56 96 I/O 07/28/16 07/28/16 07/28/16 07/29/16 07/29/16 07/29/16 07:00 15:00 23:00 07:00 15:00 23:00 Intake Total 240 ml 797 ml 360 ml 240 ml Output Total 450 ml 850 ml 200 ml Balance -210 ml -53 ml 360 ml 40 ml Intake Oral 240 ml 480 ml 360 ml 240 ml IV Total 0 ml 0 ml Packed Cells 317 ml Output Urine Total 250 ml 300 ml 200 ml Stool Total 200 ml 550 ml # Voids 4 Result Diagram: 07/29/16 0630 07/28/16 0605 Imaging Last Impressions Chest X-Ray 07/23/16 0000 Signed Impressions: Service Date/Time: Saturday, July 23, 2016 10:12 - CONCLUSION: No acute disease. Jonathan Hatch Jr., MD Upper Extremity Ultrasound 07/21/16 0000 Signed Impressions: Service Date/Time: Thursday, July 21, 2016 19:11 - CONCLUSION: Thrombosed cephalic vein. K. Pedro Aguilar MD Catheter Change 07/14/16 0000 Signed Impressions: Service Date/Time: Thursday, July 14, 2016 16:02 - CONCLUSION: Uncomplicated tube exchange as above. Rudi Resendez MD Abscess Drainage CT 07/11/16 0000 Signed Impressions: Service Date/Time: Monday, July 11, 2016 14:14 - CONCLUSION: Uncomplicated CT guided drainage. Reece Elkins MD Objective Remarks GENERAL: No acute distress SKIN: Warm and dry. HEAD: Normocephalic. EYES: No scleral icterus. No injection or drainage. NECK: Supple, trachea midline. No JVD or lymphadenopathy. CARDIOVASCULAR: Regular rate and rhythm without murmurs, gallops, or rubs. RESPIRATORY: Breath sounds equal bilaterally. No accessory muscle use. GASTROINTESTINAL: Abdomen soft, non-tender, nondistended. Surgical incision healing however worsening surrounding erythema. Ileostomy intact MUSCULOSKELETAL: No cyanosis, or edema. BACK: Nontender without obvious deformity. No CVA tenderness. Procedures 07/18/16 Exploratory laparotomy with proctosigmoidectomy, low pelvic anastomosis , diverting ileostomy, on-table bowel prep. 1. Cystoscopy. 2. Placement of ureteral catheters, bilaterally A/P Problem List: (1) Diverticulitis of intestine with abscess ICD Code: K57.80 Status: Acute (2) Intra-abdominal abscess ICD Code: K65.1 Status: Acute (3) Abdominal pain ICD Code: R10.9 Status: Resolved (4) Failure of outpatient treatment ICD Code: Z78.9 Status: Resolved (5) HTN (hypertension) ICD Code: I10 Status: Chronic (6) COPD (chronic obstructive pulmonary disease) ICD Code: J44.9 Status: Chronic (7) Tobacco abuse ICD Code: Z72.0 Status: Chronic (8) Adenocarcinoma, colon ICD Code: C18.9 Status: Acute Assessment and Plan 66-year-old male with Intra-Abdominal abscess: outpatient CT Abd/Pelvis w/ 10cm intra-abdominal abscess. 07/11CT-guided drainage of intra-abdominal abscess, with drain placement. S/p surgery 07/18. s/p Cipro, Flagyl and vancomycin per infectious disease . Augmentin was added 07/28/16 by colorectal surgery, repeat wound culture positive for Lou albican. Pathology report positive for invasive moderately differentiated adenocarcinoma of the colon Adenocarcinoma of the colon: Appreciate input from medical oncology as well as radiation oncology, however treatment would be outpatients likely after patient surgically stable. CEA normal post procedure. Recommended outpatient PET scan Anemia of acute blood loss postoperative surgery: Transfused 2 units packed red blood cell 07/28/16 and monitor H&H. 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 lifestyle modifications. Continue insulin sliding scale. However upon discharge was start patient on metformin 500 mg by mouth twice a day. Leukocytosis: . Afebrile. Blood cultures negative. Chest x-ray unremarkable. No growth in urine culture. antibiotics per ID. Oral thrush: Continue Nystatin HTN- BP soft, continue atenolol. Hold losartan. Tobacco Abuse Pt counselled. - Offered NicoDerm if needed. Hypokalemia S/t poor PO intake. - replete and monitor. Acute renal insufficiency: Resolved Lower extremity swelling/edema: Status post Lasix IV 20 mg 1 07/25/16; 2-D echo with EF of 45-50% with mildly reduced systolic function . BNP 317 DVT Prophylaxis: SCD/Teds. patient is ambulatory.anticoagulation as per surgical service. Problem Qualifiers (1) Diverticulitis of intestine with abscess: Qualified Code: K57.20 - Diverticulitis of large intestine with abscess without bleeding (2) Abdominal pain: Qualified Code: R10.32 - Left lower quadrant pain Wade Newman MD Jul 29, 2016 10:27
--- NOTE | 2016-07-29 10:27 | HHI.DS ---
Discharge Summary Admission Date Jul 10, 2016 at 19:48 Discharge Date: Jul 29, 2016 Admitting Diagnosis diverticulitis with intra-abdominal abscess failed outpatient therap (1) Diverticulitis of intestine with abscess ICD Code: K57.80 (2) Intra-abdominal abscess ICD Code: K65.1 (3) Abdominal pain ICD Code: R10.9 (4) Failure of outpatient treatment ICD Code: Z78.9 (5) HTN (hypertension) ICD Code: I10 (6) COPD (chronic obstructive pulmonary disease) ICD Code: J44.9 (7) Tobacco abuse ICD Code: Z72.0 (8) Adenocarcinoma, colon ICD Code: C18.9 Procedures 07/18/16 Exploratory laparotomy with proctosigmoidectomy, low pelvic anastomosis , diverting ileostomy, on-table bowel prep. 1. Cystoscopy. 2. Placement of ureteral catheters, bilaterally Brief History - From Admission This is a 66-year-old male with a PMH of HTN, Hyperlipidemia and COPD who was sent to the ER from the [place] secondary to findings on CT Abd/Pelvis showing 10cm intra-abdominal abscess. Per patient, he's had complaints of LLQ and left flank pain for approx 1wk. Was diagnosed w/ Diverticulitis 6 days ago and started on Cipro/Flagyl, however reports persistent pain. Had outpatient CT Abd /Pelvis done today w/ above findings and was referred to the ER. Denies fever, chills, nausea, vomiting or diarrhea. CT disk at bedside, however Radiology unable to upload images. ER physician spoke w/ both Dr. Hackett and Dr. Degroot from IR, will review images in am and decide on IR drainage vs surgical intervention. On arrival, BP 119/58, HR 73, O2 sat 99% on RA, Afebrile. WBC 8.0. Chemistry essentially unremarkable except for GFR 63. S/p Blood Cultures , Cipro/Flagyl in ER. Pt comfortable but has intermittent episodes of pain, reluctant to take pain medication. CBC/BMP: 07/29/16 0630 07/28/16 0605 Significant Findings Laboratory Tests Test 1/107/28/16 07/28/16 07/29/16 05:50 06:05 18:45 06:30 White Blood Count 13.6 TH/MM3 14.6 TH/MM3 12.0 TH/MM3 (4.0-11.0) (4.0-11.0) (4.0-11.0) Red Blood Count 2.53 MIL/MM3 2.69 MIL/MM3 3.22 MIL/MM3 (4.50-5.90) (4.50-5.90) (4.50-5.90) Hemoglobin 7.6 GM/DL 8.1 GM/DL 9.1 GM/DL 9.5 GM/DL (13.0-17.0) (13.0-17.0) (13.0-17.0) (13.0-17.0) Hematocrit 22.4 % 24.0 % 27.0 % 28.2 % (39.0-51.0) (39.0-51.0) (39.0-51.0) (39.0-51.0) Neutrophils (%) (Auto) 74.5 % 81.1 % 73.1 % (16.0-70.0) (16.0-70.0) (16.0-70.0) Neutrophils # (Auto) 10.1 TH/MM3 11.9 TH/MM3 8.8 TH/MM3 (1.8-7.7) (1.8-7.7) (1.8-7.7) Estimat Glomerular Filtration 71 ML/MIN (>89) 64 ML/MIN (>89) Rate Calcium Level 8.0 MG/DL 8.1 MG/DL (8.5-10.1) (8.5-10.1) Total Protein 5.9 GM/DL (6.4-8.2) Albumin 1.8 GM/DL 1.9 GM/DL (3.4-5.0) (3.4-5.0) Potassium Level 3.3 MEQ/L (3.5-5.1) Random Glucose 108 MG/DL (74-106) Eosinophils # (Auto) 0.5 TH/MM3 (0-0.4) Imaging Last Impressions Chest X-Ray 07/23/16 0000 Signed Impressions: Service Date/Time: Saturday, July 23, 2016 10:12 - CONCLUSION: No acute disease. Jonathan Hatch Jr., MD Upper Extremity Ultrasound 07/21/16 0000 Signed Impressions: Service Date/Time: Thursday, July 21, 2016 19:11 - CONCLUSION: Thrombosed cephalic vein. Aby Aguilar MD Catheter Change 07/14/16 0000 Signed Impressions: Service Date/Time: Thursday, July 14, 2016 16:02 - CONCLUSION: Uncomplicated tube exchange as above. Rudi Resendez MD Abscess Drainage CT 07/11/16 0000 Signed Impressions: Service Date/Time: Monday, July 11, 2016 14:14 - CONCLUSION: Uncomplicated CT guided drainage. Reece Elkins MD PE at Discharge GENERAL: No acute distress SKIN: Warm and dry. HEAD: Normocephalic. EYES: No scleral icterus. No injection or drainage. NECK: Supple, trachea midline. No JVD or lymphadenopathy. CARDIOVASCULAR: Regular rate and rhythm without murmurs, gallops, or rubs. RESPIRATORY: Breath sounds equal bilaterally. No accessory muscle use. GASTROINTESTINAL: Abdomen soft, non-tender, nondistended. Surgical incision healing however worsening surrounding erythema. Ileostomy intact MUSCULOSKELETAL: No cyanosis, or edema. BACK: Nontender without obvious deformity. No CVA tenderness. Hospital Course Intra-Abdominal abscess: outpatient CT Abd/Pelvis w/ 10cm intra-abdominal abscess. 07/11CT-guided drainage of intra-abdominal abscess, with drain placement. S/p surgery 07/18. s/p Cipro, Flagyl and vancomycin per infectious disease . Augmentin was added 07/28/16 by colorectal surgery, repeat wound culture positive for Lou albican. Pathology report positive for invasive moderately differentiated adenocarcinoma of the colon Adenocarcinoma of the colon: Appreciate input from medical oncology as well as radiation oncology, however treatment would be outpatients likely after patient surgically stable. CEA normal post procedure. Recommended outpatient PET scan Anemia of acute blood loss postoperative surgery: Transfused 2 units packed red blood cell 07/28/16 and monitor H&H. 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 lifestyle modifications. Continue insulin sliding scale. However upon discharge was start patient on metformin 500 mg by mouth twice a day. Leukocytosis: . Afebrile. Blood cultures negative. Chest x-ray unremarkable. No growth in urine culture. antibiotics per ID. Oral thrush: Continue Nystatin HTN- BP soft, continue atenolol. Hold losartan. Tobacco Abuse Pt counselled. - Offered NicoDerm if needed. Hypokalemia S/t poor PO intake. - replete and monitor. Acute renal insufficiency: Resolved Lower extremity swelling/edema: Status post Lasix IV 20 mg 1 07/25/16; 2-D echo with EF of 45-50% with mildly reduced systolic function . BNP 317 DVT Prophylaxis: SCD/Teds. patient is ambulatory.anticoagulation as per surgical service. Pt Condition on Discharge: Stable Discharge Disposition: Disch w/ Home Health Serv Discharge Time: > 30 minutes Discharge Instructions DIET: Follow Instructions for: Diabetic Diet Activities you can perform: Regular-No Restrictions Follow up Referrals: Colorectal Surgery Oncology PCP Follow-up - 1 Week New Medications: Blood Glucose Monitoring W/Device (Blood Glucose Monitoring W/Device) 1 Kit Kit 1 KIT .ROUTE DIRECTED Blood Sugar Management #1 Ref 0 KIT Blood Glucose Test Strips (Blood Glucose Test Strips) 1 Elaine Elaine 1 EA .ROUTE DIRECTED Blood Sugar Management #100 Ref 0 BOX [employer] Insulin Syringes/ 31G X 5/16" 0.3 ml ([employer] Insulin Syringes/ 31G X 5/ 16" 0.3 ml) 1 Mis Mis 1 EA .ROUTE DIRECTED Blood Sugar Management #100 BOX Insulin Pen Needle/Easy Comfort 31G X 6mm (Easy Comfort Pen [place] 31G X 6 mm) 1 Mis Mis 1 BOX .ROUTE DIRECTED Blood Sugar Management #1 Ref 0 BOX Lactobacillus Acidophilus (Lactinex) 1 Chew 1 TAB CHEW BID Nutritional Supplement #60 Ref 0 TAB Metformin (Metformin) 500 Mg Tab 500 MG PO BIDPC With meals Blood Sugar Management #60 Ref 0 TAB Amoxicillin-Clavulanate (Amoxicillin-Clavulanate) 875-125 mg Tab 875 MG PO Q12HR Infection #10 TAB Atenolol (Atenolol) 50 Mg Tab 50 MG PO DAILY Blood Pressure Management #30 TAB Nystatin Liq (Nystatin Liq) 100,000 unit/ml Susp 5 ML SWISH-SWAL QID Infection #1 ML Nystatin Topical (Nystop Topical) 100,000 Unit/Gm Powd 1 APPLIC TOPICAL Q8HR Infection #1 TUBE Oxycodone-Acetaminophen (Oxycodone-Acetaminophen) 10-325 mg Tab 1 TAB PO Q6H PRN BREAKTHROUGH PAIN #20 TAB Pantoprazole (Pantoprazole) 40 Mg Tab 40 MG PO DAILY Manage Heartburn #30 TAB Continued Medications: Aspirin DR (Aspirin 81) 81 Mg Tabdr 81 MG PO DAILY Ref 0 TAB Budesonide-Formoterol Inh (Symbicort Inh) 160-4.5 Mcg/Act Aero 2 PUFF INH Q12HR #1 Ref 0 INHALER Cyanocobalamin ER (Vitamin B-12 ER) 1,000 Mcg Tab 500 MCG PO DAILY Nutritional Supplement #1 Ref 0 BOTTLE Folic Acid (Folic Acid) 400 Mcg Tab 400 MCG PO DAILY Nutritional Supplement Ref 0 TAB Multiple Vitamins W/ Minerals (Multivitamin Adults) 1 Tab 1 TAB PO DAILY Nutritional Supplement Ref 0 TAB Simvastatin (Zocor) 40 Mg Tab 40 MG PO HS Cholesterol Management #30 Ref 0 TAB Discontinued Medications: Atenolol (Atenolol) 100 Mg Tab 150 MG PO DAILY Blood Pressure Management #30 Ref 0 TAB Hydrochlorothiazide (Hydrochlorothiazide) 12.5 Mg Cap 12.5 MG PO DAILY #30 Ref 0 CAP Losartan (Losartan) 100 Mg Tab 100 MG PO DAILY Blood Pressure Management #30 Ref 0 TAB Wade Newman MD Jul 29, 2016 10:27
[2016-07-29] MEDS ORDERED: LACTCHW3 CHEW (11:06)
[2016-07-29] MEDS ORDERED: AMOX875T2 PO (11:06)
[2016-07-29 12:00] VITALS: BP 103/63; PULSE 82; RESP 18; TEMP 98.1; O2SAT 95
[2016-07-29] MEDS ORDERED: PERC10TA27 PO (14:01)
== END 2016-07-29 13:26 | disposition home health service (06) | DRG 329 ==
LOC: NEPA 17:40 → NEDA 19:48 → HOCA 22:23 → HCIN 07-18 21:05 → HCIS 07-19 15:29 → N07B 07-19 15:35
PROVIDERS: ADMIT Hospitalist; ATTEND Hospitalist
PROC: 0W9G30Z Drainage of Peritoneal Cavity with Drainage Device, Percutaneous Approach (ICD-10-PCS; 2016-07-11)
PROC: 0W2FX0Z Change Drainage Device in Abdominal Wall, External Approach (ICD-10-PCS; 2016-07-14)
PROC: 0DBP0ZZ Excision of Rectum, Open Approach (ICD-10-PCS; 2016-07-18)
PROC: 0JD80ZZ Extraction of Abdomen Subcutaneous Tissue and Fascia, Open Approach (ICD-10-PCS; 2016-07-18)
PROC: 0T9B80Z Drainage of Bladder with Drainage Device, Via Natural or Artificial Opening Endoscopic (ICD-10-PCS; 2016-07-18)
PROC: 0DBN0ZZ Excision of Sigmoid Colon, Open Approach (ICD-10-PCS; principal; 2016-07-18 16:16)
PROC: 0D1B0Z4 Bypass Ileum to Cutaneous, Open Approach (ICD-10-PCS; 2016-07-18 16:16)
PROC: 30233N1 Transfusion of Nonautologous Red Blood Cells into Peripheral Vein, Percutaneous Approach (ICD-10-PCS; 2016-07-28)
DX: C19 Malignant neoplasm of rectosigmoid junction (principal); K65.1 Peritoneal abscess; G93.40 Encephalopathy, unspecified; E87.2 Acidosis; J96.10 Chronic respiratory failure, unspecified whether with hypoxia or hypercapnia; C79.2 Secondary malignant neoplasm of skin; B37.0 Candidal stomatitis; T85.638A Leakage of other specified internal prosthetic devices, implants and grafts, initial encounter; I82.612 Acute embolism and thrombosis of superficial veins of left upper extremity; D62 Acute posthemorrhagic anemia; T81.31XA Disruption of external operation (surgical) wound, not elsewhere classified, initial encounter; J44.9 Chronic obstructive pulmonary disease, unspecified; I10 Essential (primary) hypertension; E78.5 Hyperlipidemia, unspecified; D72.823 Leukemoid reaction; E87.6 Hypokalemia; R60.0 Localized edema; R73.9 Hyperglycemia, unspecified; R33.8 Other retention of urine; N28.9 Disorder of kidney and ureter, unspecified; D63.8 Anemia in other chronic diseases classified elsewhere; M19.90 Unspecified osteoarthritis, unspecified site; F17.210 Nicotine dependence, cigarettes, uncomplicated; Y84.8 Other medical procedures as the cause of abnormal reaction of the patient, or of later complication, without mention of misadventure at the time of the procedure; Y92.239 Unspecified place in hospital as the place of occurrence of the external cause; Z91.19 Patient's noncompliance with other medical treatment and regimen
CPT/HCPCS: 36430; 36569; 49423; 71010; 71020; 75984; 75989; 76937; 80048; 80053; 80069; 80076; 80202; 81001; 82140; 82378; 82728; 82948; 83036; 83540; 83550; 83605; 83735; 83880; 84100; 84155; 85014; 85018; 85025; 85027; 85610; 86850; 86900; 86901; 86920; 87040; 87070; 87086; 87205; 88305; 88307; 88309; 93005; 93306; 93971; 94150; 96361; 96374; 99223; C1729; C1769; J0690; J0744; J1100; J1170; J1642; J1644; J1815; J1885; J1940; J2060; J2250; J2270; J2370; J2405; J2710; J2765; J2930; J3010; J3370; J3475; J3480; J7030; J7040; J7042; J7050; J7120; J7121; P9016

== ENCOUNTER 2016-10-14 09:35 | Inpatient (IN) | payer MEDICARE, OTHER ==
[~2016-10-14] VITALS: Ht 177.8 cm; Wt 177.9 kg
[~2016-10-14 09:35] MED LIST changes: +ASPI-110 PO; -ATEN-102 PO; -BENA25TA8 PO; -EPIP0.3I IM; +FOLI400T PO; -HYZA100T2 PO; -IBUP800 PO; -MEDR4PAK3 PO; +MULT1TAB84 PO; +SYMB160A INH; +VITA100022 PO; +ZOCO40TA PO; -ZOCO80TA PO
[2016-10-21] MEDS ORDERED: ATEN25TA PO (13:52)
[2016-10-22] MEDS ORDERED: ALVIMOPAN 12 MG CAPSULE - On Call PO SCH (10:00)
[2016-10-22] MEDS ORDERED: METOPROLOL TARTRATE 25 MG TAB PO PRN (10:00)
[2016-10-22] MEDS ORDERED: INSULIN HUMAN REGULAR 1,000 UNITS/10 ML VIAL SQ PRN (10:00)
[2016-10-22] MEDS: LACTATED RINGER'S 1000 ML IV SCH (10:00)
[2016-10-22] MEDS ORDERED: SODIUM CHLORID 0.9% 500 ML IV SCH (10:00)
--- NOTE | 2016-10-22 10:08 | PD.HP.UP ---
H&P Update Note The Pre-Admit History and Physical Examination regarding the above named patient was reviewed (including, but not limited to, vital signs, heart, lungs, co-morbid conditions), and upon re-examination it is noted that: the patient's condition has not significantly changed since the last examination. Bobo Hackett MD Oct 22, 2016 10:08
[2016-10-22] MEDS ORDERED: PROPOFOL 200 MG/20 ML AMP IV ONE (10:19)
[2016-10-22] MEDS ORDERED: PHENYLEPH/NS 1000 MCG/10 ML SYR IV ONE (10:19)
[2016-10-22] MEDS ORDERED: NEOSTIGMINE 3 MG/3 ML SYR IV ONE (10:19)
[2016-10-22] MEDS ORDERED: ONDANSETRON HCL 4 MG/2 ML VIAL IV PUSH ONE (10:20)
[2016-10-22] MEDS ORDERED: LACTATED RINGER'S 1000 ML INJ 1,000 ML IV ONE (10:20)
[2016-10-22 10:32] VITALS: BP 127/76; PULSE 80; RESP 20; TEMP 97.7; O2SAT 100
[2016-10-22 10:39] LABS: BLOOD, URINE NEG (NEG); COMMENT (UR) CULT NOT INDICATED; CULTURE IF INDICATED CULT NOT INDICATED; GLUCOSE,URINE NEG (NEG); HYALINE CAST, URINE 1 /lpf (RARE); KETONE, URINE NEG (NEG); MUCUS URINE FEW /lpf (OCC); NITRITE,URINE NEG (NEG); PH, URINE 5.5 (5.0-8.5); URINE COLOR YELLOW (YELLW/STRAW)
[2016-10-22] MEDS ORDERED: metroNIDAZOLE 500 MG INJ 100 ML IV ONE (10:59)
[2016-10-22] MEDS ORDERED: ceFAZolin INJ 1,000 MG VIAL ONE (10:59)
[2016-10-22] MEDS ORDERED: SODIUM CHLORIDE 0.9% INJ 100 ML ONE (10:59)
[2016-10-22 11:09] LABS: APTT (PATIENT) 26.1 SEC (24.3-30.1); PROTHROMBIN TIME - PATIENT 11.1 SEC (9.8-11.6)
[2016-10-22 11:11] LABS: AUTOMATED NEUTROPHIL # 3.5 TH/MM3 (1.8-7.7); BASOPHIL % 0.6 % (0.0-2.0); EOSINOPHIL # 0.7 TH/MM3 (0-0.4); EOSINOPHIL % 9.7 % (0.0-4.0); HEMATOCRIT 34.3 % (39.0-51.0); HEMO FLAGS DIFF FINAL; LYMPHOCYTE # 2.2 TH/MM3 (1.0-4.8); MEAN CELL VOLUME 87.1 FL (80.0-100.0); MEAN CORPUSCULAR HEMOGLOBIN 29.5 PG (27.0-34.0); MEAN CORPUSCULAR HGB CONC 33.9 % (32.0-36.0); MONO % 10.1 % (0.0-8.0); NEUT % 48.6 % (16.0-70.0); PLATELET COUNT 139 TH/MM3 (150-450); RED BLOOD COUNT 3.93 MIL/MM3 (4.50-5.90); RED CELL DISTRIBUTION WIDTH 14.8 % (11.6-17.2); WHITE BLOOD COUNT 7.2 TH/MM3 (4.0-11.0)
[2016-10-22 11:12] LABS: ALT (GPT) 17 U/L (12-78); ANION GAP 7 MEQ/L (5-15); AST (GOT) 14 U/L (15-37); BICARBONATE 25.2 MEQ/L (21.0-32.0); BLOOD UREA NITROGEN 13 MG/DL (7-18); CHLORIDE 108 MEQ/L (98-107); GLOMERULAR FILTRATION RATE 81 ML/MIN (>89); POTASSIUM 3.8 MEQ/L (3.5-5.1); SODIUM (NA) 140 MEQ/L (136-145)
[2016-10-22 11:15] LABS: ALKALINE PHOSPHATASE 70 U/L (45-117); TOTAL BILIRUBIN ADULT 0.3 MG/DL (0.2-1.0)
[2016-10-22] MEDS ORDERED: ACETAMINOPHEN 1000 MG/100 ML VIAL IV ONE (12:06)
[2016-10-22] MEDS ORDERED: SUGAMMADEX SODIUM 200 MG/2 ML VIAL IV PUSH ONE ×2 (12:06)
--- NOTE | 2016-10-22 13:06 | HHI.PR ---
Immediate Post Op Note Procedure Date: Oct 22, 2016 Pre Op Diagnosis: Hx colon cancer Post Op Diagnosis: same Surgeon: Bobo Hackett General Manager Land Department(s): none Procedure: Exploratory lap + SBR, closure ileostomy Findings: few adhesions Complications: none Specimen(s) removed: SB Estimated blood loss: min Anesthesia: General Drains: None IVF Patient to: PACU Patient Condition: Good Bobo Hackett MD Oct 22, 2016 13:06
[2016-10-22] MEDS ORDERED: ONDANSETRON HCL 4 MG/2 ML VIAL IV PRN (13:15)
[2016-10-22] MEDS ORDERED: BENZOCAINE 6 MG/MENTHOL 10 MG LOZENGE BUCCAL PRN (13:15)
[2016-10-22] MEDS ORDERED: SODIUM CHLORIDE 0.9% FLUSH 5 ML FLUSH IVF PRN (13:15)
[2016-10-22] MEDS: SODIUM CHLORIDE 0.9% FLUSH 5 ML FLUSH IVF SCH ×2 (13:15→21:00)
[2016-10-22] MEDS ORDERED: ENALAPRILAT 1.25 MG/ML VIAL IV PRN (13:15)
[2016-10-22] MEDS ORDERED: ACETAMINOPHEN 325 MG TAB PO PRN (13:15)
[2016-10-22] MEDS ORDERED: Post-op Orders (for Pharmacy) MISC XX ONE (13:15)
[2016-10-22] MEDS ORDERED: POTASSIUM CHLOR 40 MEQ PREMIX 100 ML IV PRN (13:15)
[2016-10-22] MEDS ORDERED: ENALAPRILAT 2.5 MG/2 ML VIAL IV PRN (13:15)
[2016-10-22] MEDS ORDERED: NALOXONE HCL 0.4 MG/ML AMP IV PRN (13:15)
[2016-10-22] MEDS ORDERED: POTASSIUM CHLOR 20 MEQ PREMIX 100 ML IV PRN (13:15)
[2016-10-22] MEDS ORDERED: fentaNYL CITRATE 250 MCG/5 ML AMP ONE (13:29)
[2016-10-22] MEDS ORDERED: *morphine SULFATE 8 MG/ML PERIprocedure ONLY ONE ×2 (13:33→13:50)
[2016-10-22] MEDS: D5-NS + KCL 20 MEQ INJ 1,000 ML IV SCH ×2 (14:00→17:52)
[2016-10-22] MEDS: MORPHINE SULFATE 30 MG/30 ML PCA IV SCH (14:33)
[2016-10-22] MEDS: metroNIDAZOLE 500 MG INJ 100 ML IV SCH (18:46)
[2016-10-22 20:00] VITALS: BP 133/71; PULSE 78; RESP 20; TEMP 96.9; O2SAT 99
[2016-10-22] MEDS: PRAVASTATIN SOD 80 MG TAB PO SCH (20:50)
[2016-10-22] MEDS: METOCLOPRAMIDE HCL 10 MG/2 ML VIAL IVS SCH (20:51)
[2016-10-22] MEDS: BUDESONIDE-FORMOTEROL 160/4.5 MCG INHALER INH SCH (22:50)
[2016-10-22] MEDS: PCA - TOTAL MG MORPHINE DELIVERED PER SHIFT SCH (23:15)
[2016-10-23] VITALS (8 sets, daily range): BP systolic 117–138; BP diastolic 71–79; PULSE 80–115; RESP 18–20; TEMP 97.2–98.5; O2SAT 95–100
[2016-10-23] MEDS: D5-NS + KCL 20 MEQ INJ 1,000 ML IV SCH ×3 (00:15→15:05)
[2016-10-23] MEDS: MORPHINE SULFATE 30 MG/30 ML PCA IV SCH (04:33)
[2016-10-23] MEDS: metroNIDAZOLE 500 MG INJ 100 ML IV SCH ×2 (04:37→11:29)
[2016-10-23] MEDS: PCA - TOTAL MG MORPHINE DELIVERED PER SHIFT SCH ×3 (04:38→22:00)
[2016-10-23 05:35] LABS: AUTOMATED NEUTROPHIL # 4.5 TH/MM3 (1.8-7.7); BASOPHIL % 0.4 % (0.0-2.0); EOSINOPHIL # 0.4 TH/MM3 (0-0.4); EOSINOPHIL % 5.6 % (0.0-4.0); HEMATOCRIT 32.9 % (39.0-51.0); HEMO FLAGS DIFF FINAL; LYMPH % 17.7 % (9.0-44.0); LYMPHOCYTE # 1.2 TH/MM3 (1.0-4.8); MEAN CELL VOLUME 87.2 FL (80.0-100.0); MEAN CORPUSCULAR HEMOGLOBIN 29.6 PG (27.0-34.0); MONO % 9.2 % (0.0-8.0); NEUT % 67.1 % (16.0-70.0); PLATELET COUNT 132 TH/MM3 (150-450); RED BLOOD COUNT 3.78 MIL/MM3 (4.50-5.90); RED CELL DISTRIBUTION WIDTH 14.9 % (11.6-17.2); WHITE BLOOD COUNT 6.8 TH/MM3 (4.0-11.0)
[2016-10-23 05:57] LABS: BICARBONATE 25.9 MEQ/L (21.0-32.0); POTASSIUM 3.8 MEQ/L (3.5-5.1)
--- NOTE | 2016-10-23 07:38 | HHI.PR ---
Subjective Remarks C/R Surg POD # 1 afebrile, VSS UO good no N/V Objective - Vital Signs Date Time Temp Pulse Resp B/P Pulse Ox O2 Delivery O2 Flow Rate FiO2 10/23/16 04:41 18 10/23/16 04:00 97.6 80 136/74 96 10/22/16 16:00 Nasal Cannula 2 Result Diagram: 10/23/1644310/23/16443 Objective Remarks PE alert Abd - soft, flat, wound dry A/P Assessment and Plan Imp: stable, OOB decr IVF dc martinez slow PO Bobo Hackett MD Oct 23, 2016 07:38
[2016-10-23] MEDS: PANTOPRAZOLE SOD 40 MG DELAYED RELEASE TAB PO SCH (08:41)
[2016-10-23] MEDS: BUDESONIDE-FORMOTEROL 160/4.5 MCG INHALER INH SCH ×2 (08:42→21:00)
[2016-10-23] MEDS: ALVIMOPAN 12 MG CAPSULE - Post-op dosing PO SCH ×2 (08:42→21:29)
[2016-10-23] MEDS: METOCLOPRAMIDE HCL 10 MG/2 ML VIAL IVS SCH ×2 (08:42→21:29)
[2016-10-23] MEDS: SODIUM CHLORIDE 0.9% FLUSH 5 ML FLUSH IVF SCH ×2 (09:00→21:00)
[2016-10-23] MEDS ORDERED: PANTOPRAZOLE SODIUM 40 MG VIAL IVP SCH (09:00)
[2016-10-23] MEDS: LACTATED RINGER'S 1000 ML IV SCH (10:00)
[2016-10-23] MEDS ORDERED: ALVIMOPAN 12 MG CAPSULE PO SCH (21:00)
[2016-10-23] MEDS: PRAVASTATIN SOD 80 MG TAB PO SCH (21:29)
[2016-10-23] MEDS: KETOROLAC TROMETHAMINE 30 MG/ML (IVP) VIAL IVP PRN (23:30)
[2016-10-24] VITALS (8 sets, daily range): BP systolic 98–155; BP diastolic 57–77; PULSE 75–113; RESP 16–20; TEMP 95.2–97.6; O2SAT 95–100
[2016-10-24] MEDS: D5-NS + KCL 20 MEQ INJ 1,000 ML IV SCH ×2 (01:05→13:07)
[2016-10-24] MEDS: MORPHINE SULFATE 30 MG/30 ML PCA IV SCH (02:54)
[2016-10-24] MEDS: PCA - TOTAL MG MORPHINE DELIVERED PER SHIFT SCH ×3 (06:00→22:00)
[2016-10-24] MEDS: KETOROLAC TROMETHAMINE 30 MG/ML (IVP) VIAL IVP PRN ×3 (07:12→18:30)
[2016-10-24] MEDS: ACETAMINOPHEN/HYDROcodone 325 MG/5 MG TAB PO PRN ×4 (08:15→20:53)
[2016-10-24] MEDS: METOCLOPRAMIDE HCL 10 MG/2 ML VIAL IVS SCH ×2 (08:16→20:52)
[2016-10-24] MEDS: ALVIMOPAN 12 MG CAPSULE - Post-op dosing PO SCH ×2 (08:17→20:51)
[2016-10-24] MEDS: PANTOPRAZOLE SOD 40 MG DELAYED RELEASE TAB PO SCH (08:17)
[2016-10-24] MEDS: BUDESONIDE-FORMOTEROL 160/4.5 MCG INHALER INH SCH ×2 (08:18→20:53)
[2016-10-24] MEDS: SODIUM CHLORIDE 0.9% FLUSH 5 ML FLUSH IVF SCH ×2 (08:18→20:57)
[2016-10-24] MEDS: LACTATED RINGER'S 1000 ML IV SCH (10:00)
[2016-10-24 12:42] LABS: BASOPHIL % 0.5 % (0.0-2.0); EOSINOPHIL # 0.7 TH/MM3 (0-0.4); HEMATOCRIT 33.2 % (39.0-51.0); HEMO FLAGS DIFF FINAL; LYMPH % 18.9 % (9.0-44.0); LYMPHOCYTE # 1.3 TH/MM3 (1.0-4.8); MEAN CELL VOLUME 87.4 FL (80.0-100.0); MEAN CORPUSCULAR HEMOGLOBIN 28.7 PG (27.0-34.0); MEAN CORPUSCULAR HGB CONC 32.9 % (32.0-36.0); NEUT % 60.6 % (16.0-70.0); PLATELET COUNT 117 TH/MM3 (150-450); RED BLOOD COUNT 3.79 MIL/MM3 (4.50-5.90); RED CELL DISTRIBUTION WIDTH 14.5 % (11.6-17.2); WHITE BLOOD COUNT 6.6 TH/MM3 (4.0-11.0)
[2016-10-24 13:24] LABS: BICARBONATE 24.8 MEQ/L (21.0-32.0); POTASSIUM 3.3 MEQ/L (3.5-5.1)
[2016-10-24] MEDS: PRAVASTATIN SOD 80 MG TAB PO SCH (20:51)
--- NOTE | 2016-10-24 21:59 | HHI.PR ---
Subjective Remarks C/R Surg POD # 2 afebrile, VSS UO good no N/V +BM Objective - Vital Signs Date Time Temp Pulse Resp B/P Pulse Ox O2 Delivery O2 Flow Rate FiO2 10/24/16 20:00 97.5 98 20 118/72 97 10/24/16 17:59 21 10/23/16 21:24 Nasal Cannula 10/23/16 18:09 3.00 Result Diagram: 10/24/16 1220 10/24/16 1220 Objective Remarks PE alert Abd - soft, flat, wound dry A/P Assessment and Plan Imp: stable, OOB decr IVF dc martinez slow PO, adv Bobo Hackett MD Oct 24, 2016 21:58
[2016-10-25] VITALS: BP 116/66; PULSE 67; RESP 21; TEMP 96; O2SAT 96
[2016-10-25] MEDS: ACETAMINOPHEN/HYDROcodone 325 MG/5 MG TAB PO PRN (05:15)
[2016-10-25] MEDS: PCA - TOTAL MG MORPHINE DELIVERED PER SHIFT SCH (05:18)
[2016-10-25] MEDS: D5-NS + KCL 20 MEQ INJ 1,000 ML IV SCH (05:40)
[2016-10-25 08:00] VITALS: BP 104/60; PULSE 86; RESP 19; TEMP 97.3; O2SAT 96
[2016-10-25] MEDS: PANTOPRAZOLE SOD 40 MG DELAYED RELEASE TAB PO SCH (08:18)
[2016-10-25] MEDS: ALVIMOPAN 12 MG CAPSULE - Post-op dosing PO SCH (08:18)
[2016-10-25] MEDS: METOCLOPRAMIDE HCL 10 MG/2 ML VIAL IVS SCH (08:19)
[2016-10-25] MEDS: KETOROLAC TROMETHAMINE 30 MG/ML (IVP) VIAL IVP PRN (08:30)
[2016-10-25] MEDS: SODIUM CHLORIDE 0.9% FLUSH 5 ML FLUSH IVF SCH (08:40)
--- NOTE | 2016-10-25 09:57 | HHI.DCPOC ---
Discharge Care Plan Diagnosis: (1) Status post Ileostomy closure Your Health Problems Are: Incision/Drains Appetite Changes Irregular Bowel Function Exercise Tolerance Goals to Promote Your Health * To prevent worsening of your condition and complications * To maintain your health at the optimal level Directions to Meet Your Goals Take your medications as prescribed Follow your dietary instruction Follow activity as directed Keep your appointments as scheduled Take your immunizations and boosters as scheduled If your symptoms worsen call your PCP, if no PCP go to Urgent Care Center or Emergency Room Smoking is Dangerous to Your Health. Avoid second hand smoke Call the 24-hour hour crisis hotline for domestic abuse at Boza Pace MD Oct 25, 2016 09:57
[2016-10-25] MEDS ORDERED: HYDR-3516 PO (10:19)
--- NOTE | 2016-10-25 16:04 | MP ---
cc: JEAN GANDARA M.D. DATE OF SURGERY October 22, 2016 PREOPERATIVE DIAGNOSIS History of colon cancer status post ileostomy. PROCEDURE Exploratory laparotomy with segmental small bowel resection, closure ileostomy. POSTOPERATIVE DIAGNOSIS Same. SURGEON Dr. Gandara PROCEDURE The patient was placed in the supine position. After adequate general anesthesia his abdomen was prepped with Betadine solution and draped in usual sterile fashion. Elliptical incision was made around the ileostomy dissecting the proximal and distal limbs from the subcutaneous tissues, fascial attachments were released and the bowel mobilized up into the abdominal wound. Proximal and distal limbs were defined and an avascular plane created both proximally and distally dividing the distal limb between Kochers, the proximal limb divided using a BALBIR stapling device. Intervening mesentery taken between Fartun's obtaining hemostasis with Vicryl ties. Bowel continuity was restored by firing the BALBIR stapler across the antimesenteric ends of the bowel closing enterotomy with a TA 60 stapler. Mesenteric defect closed with a Vicryl suture and a 3-0 Vicryl crotch suture was placed as well. Bowel was replaced into the abdominal cavity. No sign of any adhesions were seen to the parietal peritoneum and the perineal cavity appeared to be relatively unremarkable. Abdominal incision was then closed anatomically in two layers using #1 PDS sutures to reapproximate the respective fascial layers. The subcu tissues was irrigated copiously and the skin closed with a running subcuticular Vicryl suture. Wound area washed with normal saline and dried, sterile dressing of Telfa and gauze applied. The patient tolerated the procedure quite well and was brought to recovery room in stable condition. Sponge and needle counts were correct at the end of the procedure. MD COBY Moreira/THERESA /1:09 PM /3:53 PM
--- NOTE | 2016-12-17 07:39 | MD ---
cc: JEAN GANDARA M.D., RONALD J. M.D. CHEW, BOON Y. M.D. ADMISSION DATE: 10/22/2016 DISCHARGE DATE: 10/25/2016 ADMITTING DIAGNOSIS History of colon cancer status post ileostomy. DISCHARGE DIAGNOSIS History of colon cancer status post ileostomy. PROCEDURE 10/22/2016 Exploratory laparotomy with segmental small bowel resection and closure of ileostomy. HISTORY OF PRESENT ILLNESS Mr. Mijares is a 66-year-old male seen previously for what was felt to be diverticulitis. 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 The patient underwent a sigmoid resection and anastomosis with diverting ileostomy. He has had a slow recovery due to the disability he had during the initial illness. He has also been considered for adjuvant chemotherapy and radiation concerning the perforated carcinoma. At this point his strength has come back, his weight has gone up, and it was discussed with all the consultants and the patient and finally agreed upon to close his ileostomy prior to proceeding with adjuvant radiation and chemotherapy due to his disability with the ileostomy output. The patient was admitted at this time for closure of his stoma. Evaluation of the colocolonic anastomosis shows it to be intact with good lumen size and viability. Please see the admission history and physical for more complete past medical and surgical history. PERTINENT PHYSICAL A very pleasant older male in no acute distress. Abdomen is kind of doughy but soft, not really distended. Incisions all well-healed. Ileostomy is well-pouched. Peristomal skin is intact. Anal inspection revealed benign canal. Digital exam revealed good tone, no masses or tenderness. HOSPITAL COURSE After admission, the patient was taken to the operating room on the 10/22/2016 at which point he underwent exploratory laparotomy with segmental small bowel resection and closure of his ileostomy. He was not found to have any obvious intraperitoneal tumor on minimal laparotomy. He tolerated the procedure quite well. He had fairly rapid return of his bowel function and his diet was advanced accordingly. He was able to have some bowel movements and had his IV fluids tapered. He was ambulating well, eating sufficiently to be considered for discharge home on 10/25/2016. DISCHARGE INSTRUCTIONS The patient was discharged eating a regular diet. He was instructed to ambulate daily, avoiding any heavy lifting or straining. All pre-op medications were to be resumed. The patient will be seen in the office in one weeks' time for routine follow-up. If any problems prior to the scheduled office visit, he will call for more urgent attention. He will be considered for postoperative chemotherapy and possible adjuvant radiation therapy after he is healed sufficiently from his ileostomy closure. MD COBY Moreira/JOSESITO /7:52 PM /7:29 AM
== END 2016-10-25 10:47 | disposition home or self-care (01) | DRG 331 ==
LOC: HSDI 10-22 08:58 → N07B 10-22 16:25 → UNDODISIN 10-25 10:47
PROVIDERS: ADMIT Colon & Rectal Surgery; ATTEND Colon & Rectal Surgery
PROC: 0DQB0ZZ Repair Ileum, Open Approach (ICD-10-PCS; principal; 2016-10-22 12:05)
DX: Z43.2 Encounter for attention to ileostomy (principal); Z85.038 Personal history of other malignant neoplasm of large intestine
CPT/HCPCS: 76937; 80048; 80053; 81001; 85025; 85610; 85730; 86850; 86900; 86901; 94150; J0131; J0690; J1885; J2270; J2370; J2405; J2710; J2765; J3010; J3480; J7120